=== PATIENT | female | born 1935 | race Caucasian/White ===

== ENCOUNTER 2020-01-02 14:56 | Inpatient (IN) | payer MEDICARE, SELFPAY ==
--- NOTE | 2020-01-02 15:16 | ED_ITS ---
HPI - Fall General Chief Complaint: Fall Stated Complaint: FALL Time Seen by Provider: 01/02/20 15:16 Source: patient Mode of arrival: EMS Limitations: no limitations History of Present Illness HPI Narrative: Patient tripped on her slipper, no LOC. patient hurt her left hip complaint: fall Onset (ago): minute(s) Fall from: standing Fall witnessed: no Place fall occurred: home Loss of consciousness: none Prolonged down time: no Context: tripped/slipped Location of injury: head and neck Location of injury - extremities: left: lower leg Severity: severe Related Data Home Medications Medication Instructions Recorded Confirmed Dilantin 01/02/20 Allergies Allergy/AdvReac Type Severity Reaction Status Date / Time No Known Allergies Allergy Unverified 11/26/19 15:13 [No Known Allergies*] Review of Systems Constitutional: Constitutional: Reports no additional constitutional complaints Eyes: Eyes: Reports no additional eye complaints ENT: Reports dizziness Comments: ocasional dizziness Cardiovascular: Cardiovascular: Reports no additional cardiovascular complaints Respiratory: Respiratory: Reports as per HPI Gastrointestinal: Gastrointestinal: Reports no additional gastrointestinal complaints Genitourinary: Genitourinary: Reports no additional female genitourinary complaints Musculoskeletal: Musculoskeletal: Reports no additional musculoskeletal complaints Integumentary/Breasts: Skin/Breast: Denies rash Neurologic: Reports system reviewed and no additional complaints, except as documented, Reports dizziness and Denies Sensory deficit (Neuro) Psychiatric: Psychiatric: Denies anxiety PMFSH Past Medical History Medical History (Updated 01/02/20 @ 19:43 by Tomasa Castañeda NP) Arthritis Seizure disorder Surgical History (Updated 01/02/20 @ 15:41 by Odalys Pace) History of neck surgery Family History Family History (Updated 01/02/20 @ 19:30 by Tomasa Castañeda NP) Sister Leukemia Social History Social History (Updated 01/02/20 @ 19:34 by Tomasa Castañeda NP) Alcohol intake: current Alcohol intake frequency: holidays/special occasions only Smoking Status: Current every day smoker Use of substances other than those prescribed or required for medical reasons: No Advance Directives: No Advance Directives Information Provided: Yes Physical Exam Vital Signs: Vital Signs: Vital Signs Temp Pulse Resp BP Pulse Ox 01/02/20 18:21 99 18 109/65 96 01/02/20 15:37 97.9 F 100 16 154/83 H 96 Body Mass Index 19.3 Const: Other: frail elderly female Nutritional Appearance: thin Orientation/consciousness: oriented to person and patient oriented x3 Limitations: no limitations HENMT: Head: Yes normal to inspection Ears: external ears normal General nose exam: Normal external nose present Mouth: Normal oral and palatal mucosa present and oropharynx normal Throat: Yes posterior oropharynx normal Eyes: General: appearance normal, both eyes and all related structures Neck: Other: supple Neck: Yes normal visual inspection Chest: Chest palpation & inspection: normal inspection of the chest Resp: Auscultation: clear to auscultation bilaterally Cardio: Jugular venous distension: no JVD Rate: regular rate Rhythm: regular rhythm Heart sounds: S1 normal heart sound present and S2 normal heart sound present GI: Inspection: Yes normal to inspection Palpation (GI): Soft to palpation, nontender and No hepatosplenomegaly present Auscultation: normal bowel sounds : General: Yes no CVA tenderness Back/Spine/Pelvis: Back: no CVA tenderness Skin: General skin exam: no rashes or lesions noted Neuro: General: oriented to person and patient oriented x3 Cranial nerves: Yes CN's II-XII intact bilaterally Motor exam (neuro): 5/5 motor strength present throughout Sensory Exam: No Sensory deficit (Neuro) Extrem: Other: left leg shortened and externally rotated Psych: Appearance: grossly normal Course Course Course Narrative: discussed with Dr. Delgado will admit to hospitalist Consultations Consultation #1: Dr. Delgado Time: 18:17 MDM - Fall MDM Narrative Medical decision making narrative: intertrocanteric fracture will admit Lab Data Result diagrams: 01/02/20 16:20 01/02/20 16:20 Labs: Lab Results 01/02/20 01/02/20 Range/Units 16:20 16:20 WBC 10.8 (4.8-10.8) X10*3/uL RBC 4.32 (4.20-5.50) X10*6/uL Hgb 12.9 (12.0-16.0) g/dl Hct 40.4 (37-47) % MCV 93.5 (80-98) fL MCH 29.9 (27.0-33.0) pg MCHC 31.9 (31.0-35.0) g/dl RDW 13.2 (11.0-16.0) % Plt Count 289 (160-400) X10*3/uL MPV 8.5 L (9.4-12.3) fL Immature Gran % (Auto) 0.3 (0.0-0.4) % Neut % (Auto) 85.1 H (45-73) % Lymph % (Auto) 7.9 L (20-40) % [place] % (Auto) 6.2 (2-11) % Eos % (Auto) 0.1 (0-4) % Baso % (Auto) 0.4 (0-2) % Lymph # (Auto) 0.9 L (1.2-4.9) X10*3/uL [place] # (Auto) 0.7 (0.1-1.2) X10*3/uL Eos # (Auto) 0.0 (0.0-0.4) X10*3/uL Baso # (Auto) 0.0 (0.0-0.2) X10*3/uL Abs Immat Gran (auto) 0.03 (0.00-0.03) X10*3/uL Absolute Neuts (auto) 9.2 H (2.0-8.3) X10*3/uL Absolute Nucleated RBC 0.000 (0.0-0.012) X10*3/uL Nucleated RBC % (auto) 0.0 (0.0-0.2) /100WBC Sodium 135 (135-145) mmol/L Potassium 5.0 (3.3-5.1) mmol/l Chloride 99 (96-108) mmol/L Carbon Dioxide 24 (22-29) mmol/L Anion Gap 17 (12-20) BUN 13 (9-16) mg/dL Creatinine 0.53 (0.5-1.4) mg/dL Estim Creat Clear Calc 55.9 Estimated GFR > 60 Random Glucose 132 H (60-115) mg/dL Calcium 8.2 L (8.4-10.2) mg/dL Imaging Data CT scan - head: Radiologist's impression: no traumatic bleed CT neck: Radiologist's impression: no fracture Discharge Plan Discharge Clinical Impression: Closed intertrochanteric fracture Qualifiers: Encounter type: initial encounter Fracture alignment: displaced Laterality: left Qualified Code(s): S72.142A - Displaced intertrochanteric fracture of left femur, initial encounter for closed fracture Patient Disposition: Admitted As Inpatient
--- NOTE | 2020-01-02 15:21 | XR_ITS ---
EXAMINATION: XR HIP, LEFT CLINICAL INFORMATION: Broken hip COMPARISON: None TECHNIQUE: Frontal view of the pelvis Two views of the left hip. FINDINGS: The SI joints, right hip and symphysis appear intact. Bowel gas obscures some of the pelvis. No proximal right femoral fracture demonstrated There is acute varus deformity secondary to a displaced proximal left femoral fracture. The fracture extends through the trochanteric region with comminution of the lesser trochanter. The femoral head appears intact. The femoral acetabular articulation appears maintained. Arterial calcifications are present. XR/XR hip LT w PEL1V IMPRESSION: Displaced proximal left femoral fracture primarily intratrochanteric with comminution of the lesser trochanter.
--- NOTE | 2020-01-02 15:23 | ECG_ITS ---
Test Reason : lightheaded Blood Pressure : / mmHG Vent. Rate : 098 BPM Atrial Rate : 098 BPM P-R Int : 132 ms QRS Dur : 110 ms QT Int : 384 ms P-R-T Axes : 080 049 107 degrees QTc Int : 490 ms Normal sinus rhythm Septal infarct (cited on or before 19-JUN-2017) Intra-ventricular conduction delay Nonspecific T wave abnormality Lateral leads Abnormal ECG When compared with ECG of 19-JUN-2017 13:19, T wave inversion less evident in Lateral leads Referred By: Dandre Smith Electronically Signed By:AYDEN BARNEY MD
--- NOTE | 2020-01-02 15:23 | CT_ITS ---
EXAMINATION: CT HEAD WITHOUT CONTRAST, CT CERVICAL SPINE WITHOUT CONTRAST CLINICAL INFORMATION: Head and neck trauma COMPARISON: The report of CT 06/19/17 indicates scattered chronic small vessel ischemic changes TECHNIQUE: Multidetector CT examination of the head is performed without contrast. Multidetector CT of the cervical spine without contrast. Multiplanar postprocessing This CT examination was performed using dose optimization techniques as appropriate, variously including the following: *Automated exposure control *Adjustment of mA and/or kV according to patient size (this includes techniques or standardized protocols for targeted exams where dose is matched to indication/reason for exam; i.e. extremities or head) *Use of iterative reconstruction technique DLP: 1037 mGy-cm FINDINGS: Head CT: There is no evidence of a recent intracranial hemorrhage or extra-axial collection. The midline structures are nondisplaced. The ventricles, cisterns, and sulci are within normal limits. There is no evidence of an intra-axial mass. There are no suspicious focal areas of abnormal brain attenuation. The andrews-white interface is within normal limits. There is no evidence of acute territorial infarct. There is nonspecific white matter low attenuation which could be related to microangiopathy. The paranasal sinuses and mastoids are within normal limits. No fracture or fluid level demonstrated. There is metallic artifact. Cervical CT: There has been discectomy and interbody fusion with instrumentation between what is considered C5 and C6. 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 No evidence of traumatic disruption of the craniocervical junction. The appearance of the C2/C3 segment is consistent with a developmental anomaly. There is no acute fracture or subluxation demonstrated. There is narrowing and pleural fluid at changes involving the posterior elements on the left at C6/C7. There is mild scoliosis convex to the left in the upper thoracic region. Metallic artifact. Atherosclerotic calcifications. No largest soft tissue cervical hematoma. Emphysema within the visualized apex of the chest. Tiny juxtapleural nonspecific density anterior left lung apex could be postinflammatory. There is some motion artifact CT/CT cervical spine wo con IMPRESSION: 1. There is no evidence of a recent intracranial hemorrhage. 2. No acute infarct. 3. 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 Emphysema
[2020-01-02 15:37] VITALS: BP 154/83; PULSE 100; RESP 16; TEMP 36.6; O2SAT 96; BMI 19.3
--- NOTE | 2020-01-02 15:56 | PC.NURSE ---
[facility] care proxy daughter
[2020-01-02 16:24] LABS: MANUAL DIFF FLAG NO
[2020-01-02 16:25] LABS: Basophils Percent Auto 0.4 % (0-2); Eosinophils Percent Auto 0.1 % (0-4); Hematocrit 40.4 % (37-47); Hemoglobin 12.9 g/dl (12.0-16.0); Imm Gran Abs Auto 0.03 X10*3/uL (0.00-0.03); Imm Gran Pct Auto 0.3 % (0.0-0.4); Lymphocytes Absolute Auto 0.9 X10*3/uL (1.2-4.9); Lymphocytes Percent Auto 7.9 % (20-40); Mean Corpuscular HGB Conc 31.9 g/dl (31.0-35.0); Mean Corpuscular Hemoglobin 29.9 pg (27.0-33.0); Mean Corpuscular Volume 93.5 fL (80-98); Mean Platelet Volume 8.5 fL (9.4-12.3); Monocytes Absolute Auto 0.7 X10*3/uL (0.1-1.2); Monocytes Percent Auto 6.2 % (2-11); Neutrophils Absolute Auto 9.2 X10*3/uL (2.0-8.3); Neutrophils Percent Auto 85.1 % (45-73); Platelet Count 289 X10*3/uL (160-400); Red Blood Count 4.32 X10*6/uL (4.20-5.50); Red Cell Distribution Width 13.2 % (11.0-16.0); White Blood Count 10.8 X10*3/uL (4.8-10.8)
[2020-01-02] MEDS: Morphine Sulfate 4 MG/ML CARTRIDGE IVPUSH (16:42)
[2020-01-02 17:08] LABS: Anion Gap 17 (12-20); Blood Urea Nitrogen 13 mg/dL (9-16); Calcium 8.2 mg/dL (8.4-10.2); Carbon Dioxide 24 mmol/L (22-29); Chloride 99 mmol/L (96-108); Creatinine Clr Calc Pharmacy 55.9; Estimated Glomerular Filt Rate > 60; Glucose Random 132 mg/dL (60-115); Sodium 135 mmol/L (135-145)
[2020-01-02 18:21] VITALS: BP 109/65; PULSE 99; RESP 18; O2SAT 96
--- NOTE | 2020-01-02 18:49 | PC.NURSE ---
first attempt at [place] unsuccessful, hospitalist now at bedside
--- NOTE | 2020-01-02 19:25 | P.HPIM_ITS ---
History of Present Illness Date of Service: 01/02/20 <Tomasa Castañeda NP - Last Filed: 01/02/20 19:47> Chief Complaint: Fall <Tomasa Castañeda NP - Last Filed: 01/02/20 19:47> 84-year-old woman presented to the ER after fall. She reported that around 23:00 last night she got up from her liver room and suddenly she remembers being on the ground. Unfortunately she does not remember if she lost consciousness or tripped over her feet as she reports previous history of syncope in the past. She did report that she got up quickly from her seated position. She denied chest pain, shortness of breath, nausea, vomiting, diarrhea. She reports that she was on the ground all night and her niece who visit her found her in the morning. Unfortunately patient was found to have a displaced proximal left femoral fracture primarily intertrochanteric. Otherwise brain CT and cervical spine CT were negative for acute abnormality. Labs within acceptable limits. Vital signs stable. Patient be admitted for further management treatment of acute femur fracture. <GENNARO Paul Last Filed: 01/02/20 19:47> Review of Systems Review of Systems: Denies any recent fever chills or decrease in appetite respiratory denies any shortness of breath coverage production cardiovascular is adjustment of any PND or edema gastrointestinal denies any dysphagia abdominal pain nausea vomiting or diarrhea genitourinary denies any dysuria frequency or hematuria musculoskeletal denies any joint pain or swelling neuropsych See above all other systems reviewed are negative <GENNARO Paul Last Filed: 01/02/20 19:47> ENT: Reports dizziness <GENNARO Paul Last Filed: 01/02/20 19:47> Neurologic: Reports system reviewed and no additional complaints, except as documented, Reports dizziness and Denies Sensory deficit (Neuro) <Tomasa ferreira NP - Last Filed: 01/02/20 19:47> FORMERLY [facility], [facility]–1983 Medical History: Medical History Arthritis Seizure disorder Smoker <Tomasa Castañeda NP - Last Filed: 01/02/20 19:47> Functional capacity: independent ambulation <GENNARO Paul Last Filed: 01/02/20 19:47> Family History: Family History Sister Leukemia <Tomasa Castañeda NP - Last Filed: 01/02/20 19:47> Surgical History: Surgical History History of neck surgery <Tomasa Castañeda NP - Last Filed: 01/02/20 19:47> Social History: Social History Household Members: None Housing: House Alcohol intake: current Alcohol intake frequency: holidays/special occasions only Smoking Status: Current every day smoker Tobacco Type: Cigarette Second Hand Smoke Exposure: No service: No Current occupational status: retired <Tomasa Castañeda NP - Last Filed: 01/02/20 19:47> Meds Allergies/Adverse reactions: Allergies Allergy/AdvReac Type Severity Reaction Status Date / Time No Known Allergies Allergy Verified 01/03/20 09:18 [No Known Allergies*] <Tomasa Castañeda NP - Last Filed: 01/02/20 19:47> Home medications: Home Medications Medication Instructions Recorded Confirmed Type phenytoin sodium extended 300 mg PO DAILY 01/02/20 01/03/20 History [Dilantin Extended] prednisone 5 mg PO DAILY 01/03/20 01/03/20 History <Tomasa Castañeda NP - Last Filed: 01/02/20 19:47> Physical Exam Vital Signs and Narrative: Vital Signs: Last Vital Signs Temp 97.9 F 01/02/20 15:37 Pulse 99 01/02/20 18:21 Resp 18 01/02/20 18:21 BP 109/65 01/02/20 18:21 Pulse Ox 96 01/02/20 18:21 Body Mass Index 19.3 <Tomasa Castañeda NP - Last Filed: 01/02/20 19:47> Appearing in no acute distress head is normocephalic atraumatic eyes pupils are PERRLA sclera is anicteric mouth throat mucous membranes are intact and moist neck is supple no lymphadenopathy, no JVD noted lung sounds are clear to auscultation heart regular rate rhythm, clear S1, S2 positive bowel sounds, abdomen is soft, nontender+ musculoskeletal left leg shortened and externally rotated neuro patient is alert x3, no focal deficits <GENNARO Paul Last Filed: 01/02/20 19:47> Neuro: Sensory Exam: No Sensory deficit (Neuro) <Tomasa Castañeda NP - Last Filed: 01/02/20 19:47> Results Labs Labs: Laboratory Tests 01/02/20 01/02/20 16:20 16:20 WBC 10.8 RBC 4.32 Hgb 12.9 Hct 40.4 MCV 93.5 MCH 29.9 MCHC 31.9 RDW 13.2 Plt Count 289 MPV 8.5 L Immature Gran % (Auto) 0.3 Neut % (Auto) 85.1 H Lymph % (Auto) 7.9 L [place] % (Auto) 6.2 Eos % (Auto) 0.1 Baso % (Auto) 0.4 Lymph # (Auto) 0.9 L [place] # (Auto) 0.7 Eos # (Auto) 0.0 Baso # (Auto) 0.0 Abs Immat Gran (auto) 0.03 Absolute Neuts (auto) 9.2 H Absolute Nucleated RBC 0.000 Nucleated RBC % (auto) 0.0 Sodium 135 Potassium 5.0 Chloride 99 Carbon Dioxide 24 Anion Gap 17 BUN 13 Creatinine 0.53 Estim Creat Clear Calc 55.9 Estimated GFR > 60 Random Glucose 132 H Calcium 8.2 L <Tomasa Castañeda NP - Last Filed: 01/02/20 19:47> Assessment and Plan (1) Closed intertrochanteric fracture: Qualifiers: Encounter type: initial encounter Fracture alignment: displaced Laterality: left Qualified Code(s): S72.142A - Displaced intertrochanteric fracture of left femur, initial encounter for closed fracture <Tomasa Castañeda NP - Last Filed: 01/02/20 19:47> Status: Acute <Tomasa Castañeda NP - Last Filed: 01/02/20 19:47> (2) Arthritis: Status: Acute <Tomasa Castañeda NP - Last Filed: 01/02/20 19:47> (3) Seizure disorder: Status: Acute <Tomasa Castañeda NP - Last Filed: 01/02/20 19:47> (4) Syncope: Status: Acute <Tomasa Castañeda NP - Last Filed: 01/02/20 19:47> 84-year-old woman admitted after a fall and found to have intertrochanteric femoral fracture. Unfortunately patient does not know if she lost consciousness at any point or if she tripped over her feet. Hip fracture. Orthopedic consultation, pain management, bedrest, NPO after midnight. Physical therapy to follow-up with patient, she will likely need rehabilitation upon discharge. Syncope. Unknown if patient had a syncopal episode versus seizure versus mechanical fall. Will place patient on the to monitor. History of seizure disorder. Will place patient on seizure precautions. Denies recent seizure activity. Smoker. Nicotine replacement, discussed smoking cessation. DVT prophylaxis with mechanical compression boots, preoperative. Case discussed with Dr. Villeda DNR <Tomasa Castañeda NP - Last Filed: 01/02/20 19:47>
--- NOTE | 2020-01-02 19:44 | PC.NURSE ---
PATIENT TAKES A SEIZURE MEDICINE BUT DOES NOT KNOW THE NAME. LAST TOOK YESTERDAY
[2020-01-02 20:00] VITALS: BP 98/72; PULSE 99; RESP 22; TEMP 36.6; O2SAT 94
[2020-01-02 20:16] LABS: Glucose Urine UA NEG (NEG); Leukocyte Esterase Urine NEG (NEG); Nitrite Urine NEG (NEG); PH 6.5 (5.0-8.0); Specific Gravity - Urine 1.025 (1.005-1.025); Urine Blood 1+ (NEG); Urine Ketones NEG (NEG); Urine Protein TRACE MG/DL (NEG-TRACE)
[2020-01-02 20:17] LABS: Appearance Urine CLEAR; Color Urine YELLOW
--- NOTE | 2020-01-02 20:41 | PC.NURSE ---
ATTEMPTED TO GIVE REPORT. NURSE WILL CALL BACK.
--- NOTE | 2020-01-02 21:01 | PC.NURSE ---
2ND ATTEMPT TO CALL AND GIVE REPORT.
[2020-01-02 21:07] LABS: UACC CULT NO; WBC Urine 0 /HPF (0-4)
--- NOTE | 2020-01-02 21:09 | PC.NURSE ---
NURSE TO NURSE GIVEN TO ANITA GONZALEZ.
[2020-01-02 21:11] LABS: SARS COV2 PCR INHOUSE NEGATIVE (Negative)
[2020-01-02 21:41] VITALS: BP 162/80; PULSE 107; RESP 18; TEMP 36.7; O2SAT 97
[2020-01-02] MEDS: 0.9 % Sodium Chloride 1,000 ML 75 ML IVCONT (22:59)
[2020-01-02] MEDS: 0.9 % Sodium Chloride Flush 3 ML SYRINGE IVFLUSH (23:00)
[2020-01-03] VITALS (11 sets, daily range): BP systolic 94–157; BP diastolic 51–90; PULSE 90–110; RESP 16–19; TEMP 35.9–37.4; O2SAT 94–98
[2020-01-03] MEDS: Morphine Sulfate 2 MG/ML CARTRIDGE IVPUSH (03:39)
--- NOTE | 2020-01-03 03:51 | PC.NURSE ---
PT TO [facility] [place] AT 2230 IN NO ACUTE DISTRESS. PT A&O X3. LEFT LEG IS SHORTER THAN RIGHT AND IS EXTERNALLY ROTATED. PT DENIES PAIN AT REST BUT HAS SEVERE PAIN WITH MOVEMENT/REPOSITIONING. CMS TO LEFT FOOT IS GOOD. PEDAL AND POST TIBIAL PULSES ARE PALPABLE. FEET ARE WARM BILAT. NO EDEMA NOTED TO EXTREMITIES. PT RECEIVED MORPHINE 2 MG IV AT 0340 PRIOR TO REPOSITIONING WITH GOOD EFFECT. LOPEZ CATH IN PLACE. SKIN INTEGRITY GOOD. VITAL SIGNS STABLE. MONITOR SHOWS ST, HR 100-108, NO ECTOPY NOTED. PT IS NPO. IV OF NS INFUSING AT 75 ML/HR. PT'S NIECE, ALEIDA, WHO IS ALSO THE HCP, CALLED TO CHECK ON THE PT AND EXPRESSED INTEREST IN SPEAKING TO THE SURGEON BEFORE PT IS TAKEN TO THE OR, IF THAT IS THE PLAN AFTER CONSULTATION. SHE IS CONCERNED ABOUT THE PT RECEIVING ANESTHESIA AND BEING INTUBATED SINCE THIS PT IS A SMOKER. WILL PASS THIS INFO ON TO NEXT RN. PT DOES HAVE A CONGESTED SOUNDING COUGH BUT NOT EXPECTORATING ANY SPUTUM. LUNGS ARE DIM WITH RHONCHI. O2 SAT IS 96-97% ON RA.
[2020-01-03 06:50] LABS: MANUAL DIFF FLAG NO
[2020-01-03 07:12] LABS: Basophils Percent Auto 0.4 % (0-2); Eosinophils Percent Auto 0.3 % (0-4); Hemoglobin 12.5 g/dl (12.0-16.0); Imm Gran Abs Auto 0.03 X10*3/uL (0.00-0.03); Imm Gran Pct Auto 0.4 % (0.0-0.4); Mean Corpuscular HGB Conc 32.1 g/dl (31.0-35.0); Mean Corpuscular Hemoglobin 30.6 pg (27.0-33.0); Mean Corpuscular Volume 95.6 fL (80-98); Mean Platelet Volume 8.8 fL (9.4-12.3); Monocytes Absolute Auto 0.5 X10*3/uL (0.1-1.2); Monocytes Percent Auto 5.8 % (2-11); Neutrophils Absolute Auto 6.2 X10*3/uL (2.0-8.3); Neutrophils Percent Auto 80.1 % (45-73); Platelet Count 260 X10*3/uL (160-400); Red Blood Count 4.08 X10*6/uL (4.20-5.50); Red Cell Distribution Width 13.2 % (11.0-16.0); White Blood Count 7.7 X10*3/uL (4.8-10.8)
--- NOTE | 2020-01-03 07:32 | P.HPOP_ITS ---
History of Present Illness History of Present Illness Chief complaint: Fall Hip Fracture Narrative: Orquidea Thurman is a 84 year old female who presents with a left hip fracture. She sustained a mechanical fall and presented to the ED with severe pain, internal rotation and inability to ambulate. She walks at baseline. She denies LOC or other injuries. SHe is a smoker. She is currently complaining of left hip pain only. XRAYS SHOW INTERTROCHANTERIC LEFT HIP FRACTURE Review of Systems Review of Systems: Yes all other systems are reviewed and are negative Eyes: Eyes: Reports no additional eye complaints ENT: Reports dizziness Cardiovascular: Cardiovascular: Reports no additional cardiovascular complaints Respiratory: Respiratory: Reports no additional respiratory complaints Gastrointestinal: Gastrointestinal: Reports no additional gastrointestinal complaints Musculoskeletal: Musculoskeletal: Reports as per HPI Integumentary/Breasts: Skin/Breast: Reports system reviewed and no additional complaints, except as docu Neurologic: Reports system reviewed and no additional complaints, except as documented, Reports dizziness and Denies Sensory deficit (Neuro) Psychiatric: Psychiatric: Reports no additional psychiatric complaints PMF Past Medical History Medical History Arthritis Seizure disorder Smoker Functional capacity: independent ambulation Family History Family History Sister Leukemia Surgical History Surgical History History of neck surgery Social History Social History Household Members: None Housing: House Are you a primary day care center director to a significant other at home: No Do you presently have visiting nurse or other home services: No Alcohol intake: current Alcohol intake frequency: holidays/special occasions only Smoking Status: Current every day smoker Tobacco Type: Cigarette Smoked in Last 30 Days: Yes Patient Interested in Nicotine Replacement: Yes Patient Given Instructions on How to Stop Smoking: Yes Date Education Initiated: 01/02/20 Second Hand Smoke Exposure: No Use of substances other than those prescribed or required for medical reasons: No Have you been hit, kicked, punched, or otherwise hurt by someone within the past year? If so, by whom?: No Do you feel safe in your current relationship?: No Current Relationship Is there a partner from a previous relationship who is making you feel unsafe now?: No Are you made to feel afraid or neglected: No Spiritual Healthcare Practices: NONE [place] Healthcare Practices: NONE Cultural Healthcare Practices: NONE Advance Directives: No Advance Directives Information Provided: Yes Do you have thoughts of harming others: None Do you have a plan to hurt others: No Plan Recently lost weight without trying: Yes Meds Allergies Allergy/AdvReac Type Severity Reaction Status Date / Time No Known Allergies Allergy Unverified 11/26/19 15:13 [No Known Allergies*] Home Medications Medication Instructions Recorded Confirmed Type Dilantin 01/02/20 History Physical Exam Vital Signs: Vital Signs: Vital Signs Temp Pulse Resp BP Pulse Ox 01/03/20 03:39 18 01/03/20 03:35 99.0 F 110 H 18 119/90 H 95 01/03/20 00:11 98.1 F 101 H 18 140/76 H 95 01/02/20 21:41 98.0 F 107 H 18 162/80 H 97 01/02/20 20:00 98 F 99 22 H 98/72 94 01/02/20 18:21 99 18 109/65 96 01/02/20 15:37 97.9 F 100 16 154/83 H 96 Body Mass Index 19.3 Const: General: cooperative, no acute distress and alert HENMT: Head: Yes normal to inspection, Yes normocephalic and Yes atraumatic Mouth: moist mucous membranes Eyes: General: appearance normal, both eyes and all related structures EOM: EOMs intact bilaterally Resp: Other: no wheezing but loose phlematic cough ( chronic) Effort & Inspection: normal respiratory effort Cardio: Other: Radial pulse palpable with no rythmic abnormalities Back/Spine/Pelvis: Cervical Spine: normal cervical lordosis Skin: General skin exam: no rashes or lesions noted Neuro: General: no focal motor deficits Sensory Exam: No Sensory deficit (Neuro) Extrem: Other: Left leg internally rotated and pain with log roll. Moving toes comfortably and silt grossly with papable pedal pulse Psych: Appearance: grossly normal and well kempt Mental Status: mental status grossly normal Speech and movement: Normal speech and movement present Affect: normal affect Attitude: cooperative Results Labs Result Diagrams: 01/03/20 06:24 01/02/20 16:20 Labs: Abnormal lab results 01/02/20 01/02/20 01/02/20 Range/Units 16:20 16:20 20:01 RBC (4.20-5.50) X10*6/uL MPV 8.5 L (9.4-12.3) fL Neut % (Auto) 85.1 H (45-73) % Lymph % (Auto) 7.9 L (20-40) % Lymph # (Auto) 0.9 L (1.2-4.9) X10*3/uL Absolute Neuts (auto) 9.2 H (2.0-8.3) X10*3/uL Random Glucose 132 H (60-115) mg/dL Calcium 8.2 L (8.4-10.2) mg/dL Urine Blood 1+ H (NEG) Urine RBC 10-14 H (0) /HPF 01/03/20 Range/Units 06:24 RBC 4.08 L (4.20-5.50) X10*6/uL MPV 8.8 L (9.4-12.3) fL Neut % (Auto) 80.1 H (45-73) % Lymph % (Auto) 13.0 L (20-40) % Lymph # (Auto) 1.0 L (1.2-4.9) X10*3/uL Absolute Neuts (auto) (2.0-8.3) X10*3/uL Random Glucose (60-115) mg/dL Calcium (8.4-10.2) mg/dL Urine Blood (NEG) Urine RBC (0) /HPF H & H 01/02/20 01/03/20 Range/Units 16:20 06:24 Hgb 12.9 12.5 (12.0-16.0) g/dl Hct 40.4 39.0 (37-47) % All other labs normal. Laboratory Findings Labs: Laboratory Results - last 24 hr 01/02/20 01/02/20 01/02/20 16:20 16:20 19:57 WBC 10.8 RBC 4.32 Hgb 12.9 Hct 40.4 MCV 93.5 MCH 29.9 MCHC 31.9 RDW 13.2 Plt Count 289 MPV 8.5 L Immature Gran % (Auto) 0.3 Neut % (Auto) 85.1 H Lymph % (Auto) 7.9 L [place] % (Auto) 6.2 Eos % (Auto) 0.1 Baso % (Auto) 0.4 Lymph # (Auto) 0.9 L [place] # (Auto) 0.7 Eos # (Auto) 0.0 Baso # (Auto) 0.0 Abs Immat Gran (auto) 0.03 Absolute Neuts (auto) 9.2 H Absolute Nucleated RBC 0.000 Nucleated RBC % (auto) 0.0 Sodium 135 Potassium 5.0 Chloride 99 Carbon Dioxide 24 Anion Gap 17 BUN 13 Creatinine 0.53 Estim Creat Clear Calc 55.9 Estimated GFR > 60 Random Glucose 132 H Calcium 8.2 L Urine Color Urine Appearance Urine pH Ur Specific [place] Urine Protein Urine Glucose (UA) Urine Ketones Urine Blood Urine Nitrite Ur Leukocyte Esterase Urine RBC Urine WBC Ur Squamous Epith Cells Urine Bacteria Coronavirus (PCR) NEGATIVE COVID-19 PCR Cancelled 01/02/20 01/03/20 20:01 06:24 WBC 7.7 RBC 4.08 L Hgb 12.5 Hct 39.0 MCV 95.6 MCH 30.6 MCHC 32.1 RDW 13.2 Plt Count 260 MPV 8.8 L Immature Gran % (Auto) 0.4 Neut % (Auto) 80.1 H Lymph % (Auto) 13.0 L [place] % (Auto) 5.8 Eos % (Auto) 0.3 Baso % (Auto) 0.4 Lymph # (Auto) 1.0 L [place] # (Auto) 0.5 Eos # (Auto) 0.0 Baso # (Auto) 0.0 Abs Immat Gran (auto) 0.03 Absolute Neuts (auto) 6.2 Absolute Nucleated RBC 0.000 Nucleated RBC % (auto) 0.0 Sodium Potassium Chloride Carbon Dioxide Anion Gap BUN Creatinine Estim Creat Clear Calc Estimated GFR Random Glucose Calcium Urine Color YELLOW Urine Appearance CLEAR Urine pH 6.5 Ur Specific [place] 1.025 Urine Protein TRACE Urine Glucose (UA) NEG Urine Ketones NEG Urine Blood 1+ H Urine Nitrite NEG Ur Leukocyte Esterase NEG Urine RBC 10-14 H Urine WBC 0 Ur Squamous Epith Cells NONE Urine Bacteria NONE Coronavirus (PCR) COVID-19 PCR Assessment and Plan (1) Closed intertrochanteric fracture: Qualifiers: Encounter type: initial encounter Fracture alignment: displaced Laterality: left Qualified Code(s): S72.142A - Displaced intertrochanteric fracture of left femur, initial encounter for closed fracture Status: Acute THis is an 84 yo smoker with left intertrochanteric hip fracture. I jose mmend operative fixation. I spoke with her and her niece and explained the risks/benefits/alternatives including but not limited to the risk of infection, need for additional surgery, UTI, PNA, blood clots, pulmonary complications associated with surgery and recovery. The alfredito (HCP) expressed understanding.
[2020-01-03 07:46] LABS: Anion Gap 16 (12-20); Blood Urea Nitrogen 17 mg/dL (9-16); Calcium 7.8 mg/dL (8.4-10.2); Carbon Dioxide 24 mmol/L (22-29); Chloride 101 mmol/L (96-108); Estimated Glomerular Filt Rate > 60; Glucose Random 112 mg/dL (60-115); Potassium 4.4 mmol/l (3.3-5.1); Sodium 137 mmol/L (135-145)
--- NOTE | 2020-01-03 07:53 | FL_ITS ---
EXAMINATION: XR FLUOROSCOPY WITH IMAGES CLINICAL INFORMATION: Fracture left hip COMPARISON: Frontal view left hip 01/02/20 TECHNIQUE: Fluoroscopy performed by Dr. Sohail Delgado. Fluoroscopy time: 0.9 minutes DAP: 0.161 mGycm2 Images: 5 FINDINGS: A series of images obtained in the operating room with the portable image intensifier demonstrates instrumentation with reduction and fixation of the previously demonstrated displaced proximal femoral fracture. Antegrade intramedullary jemma traverses the intertrochanteric region and terminates in the distal diametaphysis transfixed by a single distal orthogonal screw. There is a obliquely oriented large caliber threaded nail traversing the jemma, intertrochanteric region, femoral neck and projecting in the femoral head. Bone detail somewhat limited but the orientation and alignment are markedly improved. Vascular calcifications. FL/FL guidance in OR IMPRESSION: Imaging assistance provided during instrumentation and fixation of a left proximal femoral fracture
[2020-01-03] MEDS: 0.9 % Sodium Chloride Flush 3 ML SYRINGE IVFLUSH ×2 (08:00→14:44)
--- NOTE | 2020-01-03 08:27 | P.CONAN_ITS ---
[facility] Past Medical History Medical History Arthritis Seizure disorder Smoker Functional capacity: independent ambulation Family History Family History Sister Leukemia Surgical History Surgical History History of neck surgery Social History Social History Household Members: None Housing: House Are you a primary spiritual care coordinator to a significant other at home: No Do you presently have visiting nurse or other home services: No Alcohol intake: current Alcohol intake frequency: holidays/special occasions only Smoking Status: Current every day smoker Tobacco Type: Cigarette Smoked in Last 30 Days: Yes Patient Interested in Nicotine Replacement: Yes Patient Given Instructions on How to Stop Smoking: Yes Date Education Initiated: 01/02/20 Second Hand Smoke Exposure: No Use of substances other than those prescribed or required for medical reasons: No Have you been hit, kicked, punched, or otherwise hurt by someone within the past year? If so, by whom?: No Do you feel safe in your current relationship?: No Current Relationship Is there a partner from a previous relationship who is making you feel unsafe now?: No Are you made to feel afraid or neglected: No Spiritual Healthcare Practices: NONE [facility] Practices: NONE Cultural Healthcare Practices: NONE Advance Directives: No Advance Directives Information Provided: Yes Do you have thoughts of harming others: None Do you have a plan to hurt others: No Plan Recently lost weight without trying: Yes Meds Allergies Allergy/AdvReac Type Severity Reaction Status Date / Time No Known Allergies Allergy Verified 01/03/20 09:18 [No Known Allergies*] Home Medications Medication Instructions Recorded Confirmed Type Dilantin 01/02/20 History Exam Exam Date and Time: January 03, 2020 0827 Height,Weight and Vital Signs: Height 5 ft Weight 44.906 kg Last Vital Signs Temp 98.2 F 01/03/20 07:46 Pulse 95 01/03/20 07:46 Resp 18 01/03/20 07:46 BP 111/73 01/03/20 07:46 Pulse Ox 94 01/03/20 07:46 Pertinent Lab Results Pertinent Lab Results: Laboratory Tests 01/02/20 01/02/20 01/02/20 16:20 16:20 19:57 WBC 10.8 RBC 4.32 Hgb 12.9 Hct 40.4 MCV 93.5 MCH 29.9 MCHC 31.9 RDW 13.2 Plt Count 289 MPV 8.5 L Immature Gran % (Auto) 0.3 Neut % (Auto) 85.1 H Lymph % (Auto) 7.9 L [place] % (Auto) 6.2 Eos % (Auto) 0.1 Baso % (Auto) 0.4 Lymph # (Auto) 0.9 L [place] # (Auto) 0.7 Eos # (Auto) 0.0 Baso # (Auto) 0.0 Abs Immat Gran (auto) 0.03 Absolute Neuts (auto) 9.2 H Absolute Nucleated RBC 0.000 Nucleated RBC % (auto) 0.0 Sodium 135 Potassium 5.0 Chloride 99 Carbon Dioxide 24 Anion Gap 17 BUN 13 Creatinine 0.53 Estim Creat Clear Calc 55.9 Estimated GFR > 60 Random Glucose 132 H Calcium 8.2 L Urine Color Urine Appearance Urine pH Ur Specific [place] Urine Protein Urine Glucose (UA) Urine Ketones Urine Blood Urine Nitrite Ur Leukocyte Esterase Urine RBC Urine WBC Ur Squamous Epith Cells Urine Bacteria Coronavirus (PCR) NEGATIVE COVID-19 PCR Cancelled 01/02/20 01/03/20 01/03/20 20:01 06:24 06:24 WBC 7.7 RBC 4.08 L Hgb 12.5 Hct 39.0 MCV 95.6 MCH 30.6 MCHC 32.1 RDW 13.2 Plt Count 260 MPV 8.8 L Immature Gran % (Auto) 0.4 Neut % (Auto) 80.1 H Lymph % (Auto) 13.0 L [place] % (Auto) 5.8 Eos % (Auto) 0.3 Baso % (Auto) 0.4 Lymph # (Auto) 1.0 L [place] # (Auto) 0.5 Eos # (Auto) 0.0 Baso # (Auto) 0.0 Abs Immat Gran (auto) 0.03 Absolute Neuts (auto) 6.2 Absolute Nucleated RBC 0.000 Nucleated RBC % (auto) 0.0 Sodium 137 Potassium 4.4 Chloride 101 Carbon Dioxide 24 Anion Gap 16 BUN 17 H Creatinine 0.57 Estim Creat Clear Calc 52.0 Estimated GFR > 60 Random Glucose 112 Calcium 7.8 L Urine Color YELLOW Urine Appearance CLEAR Urine pH 6.5 Ur Specific [place] 1.025 Urine Protein TRACE Urine Glucose (UA) NEG Urine Ketones NEG Urine Blood 1+ H Urine Nitrite NEG Ur Leukocyte Esterase NEG Urine RBC 10-14 H Urine WBC 0 Ur Squamous Epith Cells NONE Urine Bacteria NONE Coronavirus (PCR) COVID-19 PCR Airway Mallampati Class: II TM Dist: >3cm Loose/Missing/Broken Teeth: No Heart: RRR Lungs: BS BL decreased, min. wheezing
--- NOTE | 2020-01-03 08:40 | MHC.SHP ---
Pre-Procedural Eval Section A The patient is an INPATIENT: Yes Changes since office visit: Yes Patient answered all questions; No Cold of Flu in the past 2 weeks, No New Medical Problems and No Changes in Medication The History & Physical has been completed within 30 days and I have reviewed it.: Yes Section B Chief Complaint: Fall Hip Fracture Allergies: Allergies Allergy/AdvReac Type Severity Reaction Status Date / Time No Known Allergies Allergy Unverified 11/26/19 15:13 [No Known Allergies*] Plan Patient has been examined and remains a candidate for the planned procedure
--- NOTE | 2020-01-03 09:58 | PM.OP ---
Brief Operative Note Date of procedure: 01/03/20 Pre-op diagnosis: left hip IT fx Post-op diagnosis: same Procedure: CMN left hip Implants: seth [id number] 125 deg imn with 95 mm hip screw and 35 mm distal interlock Surgeon: Sohail Delgado MD Anesthesia: GLMA and local Estimated blood loss (mL): 100 IV fluids (mL): 500 Pathology: none sent Condition: stable Disposition: PACU
[2020-01-03] MEDS: ceFAZolin Sodium/Dextrose,Iso 2 GM/50 ML PIGGYBACK IV ×2 (10:48→14:43)
--- NOTE | 2020-01-03 12:33 | OP_ITS ---
SURGEON: Sohail Delgado MD INDICATIONS: This is an 84-year-old woman, who sustained a mechanical fall, consented to undergo left hip IM nail fixation. PREOPERATIVE DIAGNOSIS: Left intertrochanteric hip fracture. POSTOPERATIVE DIAGNOSIS: Left intertrochanteric hip fracture. PROCEDURE PERFORMED: Cephalomedullary nail, left hip. ESTIMATED BLOOD LOSS: 100 mL. COMPLICATIONS: None known. ANESTHESIA: LMA and local. ASSISTANTS: None. SPECIMENS: FLUIDS: 500. IMPLANTS: [place] cephalomedullary nail 11 x 300, 125-degree with 95-degree hip screw and 30 mm distal interlock. PROCEDURE IN DETAIL: The patient was brought to the operating room, placed supine on the operative table, and prepped and draped in standard sterile fashion. Time-out was called to identify proper site, proper procedure, and proper surgeon. IV antibiotics per weight were administered. I began by reducing the fracture using a combination of traction and rotation, and biplanar fluoroscopy was used to confirm reduction. Once this was done, I made a stab incision proximal to the greater trochanter and at the tip of the greater trochanter and placed my guidewire. I then enlarged my incision and drilled my opening reamer. I then placed my ball-tip guidewire down to the center of the femur and measured a 300 mm nail. I reamed to a 13 and placed 11 x 300 mm nail. Hip screw was placed using a tip apex distance of less than 2.5. I then drilled to measure 95 and drilled. While inserting the screw, I think there was some rotation of the neck resulting in slightly anterior placement of the screw on the lateral, but since I had already drilled, I felt that this was acceptable. I was happy with the AP, and I placed my set screw. I then turned my attention distally and placed distal interlock screw using perfect venetie technique. Once this was done, I was happy with the position of the hardware and the fracture reduction. All traction was let down, and copious irrigation was performed. Layered closure was performed with renny on the skin. I injected approximately 30 mL of 0.5% Marcaine plain in all 3 of the small incisions. The patient was then awakened from anesthesia and brought to the recovery room in stable condition. There were no known complications. MD LAMBERT Dior/HARVEY / [phone]
--- NOTE | 2020-01-03 13:34 | HO.PM.IMPN ---
Subjective Subjective Date of Service: 01/03/20 Interval History: patient seen and examined at bedside patient reported pain at surgical side Cardiovascular Cardiovascular: Denies dyspnea Respiratory Respiratory: Denies dyspnea Gastrointestinal Gastrointestinal: Denies vomiting Neurologic Neurologic: Denies Sensory deficit (Neuro) Physical Exam Vital Signs: Vital Signs: Vital Signs Temp Pulse Resp BP Pulse Ox 01/03/20 10:36 97.5 F 91 16 154/86 H 94 01/03/20 10:22 97.5 F 91 16 150/75 H 95 01/03/20 10:17 97.5 F 90 16 154/86 H 95 01/03/20 10:12 97.5 F 90 16 157/84 H 97 01/03/20 07:46 98.2 F 95 18 111/73 94 01/03/20 03:39 18 01/03/20 03:35 99.0 F 110 H 18 119/90 H 95 01/03/20 00:11 98.1 F 101 H 18 140/76 H 95 01/02/20 21:41 98.0 F 107 H 18 162/80 H 97 01/02/20 20:00 98 F 99 22 H 98/72 94 01/02/20 18:21 99 18 109/65 96 01/02/20 15:37 97.9 F 100 16 154/83 H 96 Body Mass Index 19.3 Appearing in no acute distress head is normocephalic atraumatic eyes pupils are PERRLA sclera is anicteric mouth throat mucous membranes are intact and moist neck is supple no lymphadenopathy, no JVD noted lung sounds are clear to auscultation heart regular rate rhythm, clear S1, S2 positive bowel sounds, abdomen is soft, nontender+ musculoskeletal left leg shortened and externally rotated neuro patient is alert x3, no focal deficits Neuro: Sensory Exam: No Sensory deficit (Neuro) Objective Data Current Medications Generic Name Dose Route Start Last Admin Trade Name Freq PRN Reason Stop Dose Admin Acetaminophen 650 mg 01/02/20 21:40 Acetaminophen 325 Mg Tablet PO Q6H PRN Pain, Mild (Pain Scale 1-3) Fentanyl 25 mcg 01/03/20 09:33 Fentanyl Citrate/Pf 100 Mcg/2 Ml Vial IVPUSH Q5M PRN Pain, Moderate (Pain Scale 4-6 Sodium Chloride 1,000 mls @ 75 mls/hr 01/02/20 21:40 01/03/20 13:24 Ns IVCONT Not Given .[id number] AVTAR Cefazolin Sodium/Dextrose 2 gm in 50 mls @ 100 mls/hr 01/03/20 15:00 Ancef IV 01/03/20 15:29 POSTOP ONE Morphine Sulfate 2 mg 01/02/20 21:40 01/03/20 03:39 Morphine Sulfate 2 Mg/Ml Cartridge IVPUSH 2 mg Q4H PRN Administration Pain and Fever Nicotine 7 mg 01/03/20 09:00 Nicotine 7 Mg Patch.[id number] TRANSDERMA DAILY AVTAR Ondansetron HCl 4 mg 01/02/20 21:40 Ondansetron Hcl 4 Mg/2 Ml Vial IVPUSH Q8H PRN Nausea and Vomiting Ondansetron HCl 4 mg 01/03/20 09:33 Ondansetron Hcl 4 Mg/2 Ml Vial IVPUSH ONCE PRN Nausea and Vomiting Pharmacy Consult 1 each 01/02/20 18:33 Consult Rx Perform Med Rec MISCELLANE ONCE PRN Consult order Sodium Chloride 3 ml 01/03/20 00:00 01/03/20 08:00 0.9 % Sodium Chloride Flush 3 Ml Syringe IVFLUSH 3 ml QSHIFT AVTAR Administration Labs CBC & Chem 7: 01/04/20 08:39 01/04/20 08:39 Assessment and Plan (1) Closed intertrochanteric fracture: Status: Acute (2) Arthritis: Status: Acute (3) Seizure disorder: Status: Acute (4) Syncope: Status: Acute Assessment and Plan: 84-year-old woman admitted after a fall and found to have intertrochanteric femoral fracture. Hip fracture status post fall status post surgery today orthopedic following pain management will get PT evaluation tomorrow Syncope. Unknown if patient had a syncopal episode versus seizure versus mechanical fall. appears more mechanical no arrhythmia on telemetry History of seizure disorder. continue Dilantin Denies recent seizure activity. Smoker. Nicotine replacement, discussed smoking cessation. DVT prophylaxis with mechanical compression boots , will change as per surgery recommendation DNR
[2020-01-03] MEDS: 0.9 % Sodium Chloride 1,000 ML 75 ML IVCONT (14:43)
--- NOTE | 2020-01-03 16:42 | MHC.CM.PN ---
PT REPORTS SHE LIVES ALONE AND IS INDEPENDENT WITH CARE. PT HAS A WALKER BUT DOES NOT USE IT AT BASELINE ALTHOUGH SHE REPORTS SHE HAS BEEN USING IT AT TIMES RECENTLY. PT REPORTS SHE DOES NOT HAVE ANY SERVICES, SHE HAS SEVERAL NIECES IN THE AREA AND REPORTS THEY ARE ALL NURSES AND CHECK IN ON HER REGULARLY. PT REPORTS HER PCP IS DR ATKINS AND SHE HAS A HCP NAMING HER SISTER SALEEM AND NIECE ALEIDA HER AGENTS. PT REPORTS SHE IS AWARE SHE WILL LIKELY NEED STR AND SHE WOULD LIKE TO DISCUSS IT FURTHER WITH HER NIECE BEFORE NAMING HER PREFERENCES. CM WILL RESUME DISCUSSION WITH PT TOMORROW IMM DELIVERED CURRENT DC PLAN IS STR WILL NEED BLS
[2020-01-03] MEDS: predniSONE 5 MG TABLET PO (16:56)
[2020-01-03] MEDS: Phenytoin Sodium Extended 100 MG CAPSULE 300 MG PO (16:56)
[2020-01-04] VITALS (7 sets, daily range): BP systolic 100–116; BP diastolic 52–59; PULSE 88–101; RESP 18–19; TEMP 36.5–37.4; O2SAT 92–96; BMI 19.3
[2020-01-04] MEDS: 0.9 % Sodium Chloride 1,000 ML 75 ML IVCONT ×2 (04:10→16:14)
[2020-01-04] MEDS: predniSONE 5 MG TABLET PO (07:54)
[2020-01-04] MEDS: Phenytoin Sodium Extended 100 MG CAPSULE 300 MG PO (07:54)
[2020-01-04] MEDS: Nicotine 7 MG PATCH.TD24 TRANSDERMA (07:55)
--- NOTE | 2020-01-04 08:31 | MHC.CM.PN ---
pt still needs a PT eval , after the PT is completed and str is recomended then the patient's choices will be collected and refs . made. dc plan is most likely to str. cm to cont. to follow.
[2020-01-04 08:51] LABS: MANUAL DIFF FLAG NO
[2020-01-04 09:00] LABS: Basophils Percent Auto 0.6 % (0-2); Eosinophils Absolute Auto 0.1 X10*3/uL (0.0-0.4); Eosinophils Percent Auto 0.7 % (0-4); Hematocrit 33.8 % (37-47); Hemoglobin 10.7 g/dl (12.0-16.0); Imm Gran Abs Auto 0.03 X10*3/uL (0.00-0.03); Imm Gran Pct Auto 0.4 % (0.0-0.4); Lymphocytes Absolute Auto 1.5 X10*3/uL (1.2-4.9); Lymphocytes Percent Auto 22.2 % (20-40); Mean Corpuscular HGB Conc 31.7 g/dl (31.0-35.0); Mean Corpuscular Hemoglobin 30.6 pg (27.0-33.0); Mean Corpuscular Volume 96.6 fL (80-98); Mean Platelet Volume 8.8 fL (9.4-12.3); Monocytes Absolute Auto 0.5 X10*3/uL (0.1-1.2); Monocytes Percent Auto 6.6 % (2-11); Neutrophils Absolute Auto 4.7 X10*3/uL (2.0-8.3); Neutrophils Percent Auto 69.5 % (45-73); Platelet Count 248 X10*3/uL (160-400); Red Cell Distribution Width 13.2 % (11.0-16.0); White Blood Count 6.8 X10*3/uL (4.8-10.8)
--- NOTE | 2020-01-04 09:40 | HO.POSTANES ---
Post Anesthesia Evaluation Post Anesthesia Evaluation Vital Signs: Vital Signs Temp Pulse Resp BP Pulse Ox 01/04/20 07:45 98 F 101 H 18 112/57 L 95 01/04/20 03:47 98.1 F 95 19 100/58 L 96 01/04/20 00:00 99.4 F 94 19 109/54 L 95 01/03/20 23:50 99.4 F 100 19 109/51 L 95 Anesthesia: General Mental Status: Awake Pain Control: Satisfactory Nausea/Vomiting: None Hydration: Adequate Anesthesia-Related Issues: No Anes. Related Issues
[2020-01-04 10:04] LABS: Anion Gap 13 (12-20); Blood Urea Nitrogen 19 mg/dL (9-16); Calcium 7.5 mg/dL (8.4-10.2); Carbon Dioxide 25 mmol/L (22-29); Chloride 102 mmol/L (96-108); Creatinine Clr Calc Pharmacy 49.5; Estimated Glomerular Filt Rate > 60; Glucose Random 120 mg/dL (60-115); Potassium 3.7 mmol/l (3.3-5.1); Sodium 136 mmol/L (135-145)
--- NOTE | 2020-01-04 11:04 | MHC.CM.PN ---
pt requested ref. be made to shadi harmon. this has been done. cm to cont. to follow.
--- NOTE | 2020-01-04 13:33 | MHC.CLN ---
PT IS MILDLY MALNOURISHED WILL ADD ENSURE BID TO INCREASE KCALS SEE ALSO NUTRITION ASSESSMENT
--- NOTE | 2020-01-04 14:20 | PM.PNORT ---
Subjective Subjective Interval history: postop day 1 status post left hip intramedullary nail. Patient denies discomfort. She has not yet been out of bed to work with PT. She denies shortness of breath chest pain or palpitations. Physical Exam Vital Signs: Vital Signs: Vital Signs Temp Pulse Resp BP Pulse Ox 01/04/20 12:00 98.4 F 93 18 116/58 L 01/04/20 07:45 98 F 101 H 18 112/57 L 95 01/04/20 03:47 98.1 F 95 19 100/58 L 96 01/04/20 00:00 99.4 F 94 19 109/54 L 95 01/03/20 23:50 99.4 F 100 19 109/51 L 95 01/03/20 19:20 98.3 F 97 18 112/56 L 98 01/03/20 17:15 96.6 F L 96 19 94/63 96 Body Mass Index 19.3 Const: General: cooperative, healthy appearing and no acute distress Resp: Effort & Inspection: normal respiratory effort and able to speak in complete sentences Cardio: Rate: regular rate Peripheral pulses: Peripheral pulses 2+ throughout GI: Inspection: Yes normal to inspection Palpation (GI): Soft to palpation Skin: General skin exam: no rashes or lesions noted Extrem: Other: Left hip skin intact. Incision clean dry and intact. No drainage. Sensation intact. Progress Note: A&P Assessment and plan (1) Closed intertrochanteric fracture: Status: Acute Assessment and Plan: Continue pain management, begin PT/ OT begin Lovenox dispo planning PT eval Fall Risk Details Current Medications: Current Medications Generic Name Dose Route Start Last Admin Trade Name Leiq PRN Reason Stop Dose Admin Acetaminophen 650 mg 01/02/20 21:40 Acetaminophen 325 Mg Tablet PO Q6H PRN Pain, Mild (Pain Scale 1-3) Enoxaparin Sodium 40 mg 01/04/20 11:00 01/04/20 12:04 Enoxaparin Sodium 40 Mg/0.4 Ml Syringe SUBCUT Not Given Q24H AVTAR Fentanyl 25 mcg 01/03/20 09:33 Fentanyl Citrate/Pf 100 Mcg/2 Ml Vial IVPUSH Q5M PRN Pain, Moderate (Pain Scale 4-6 Sodium Chloride 1,000 mls @ 75 mls/hr 01/02/20 21:40 01/04/20 04:10 Ns IVCONT 75 mls/hr .[id number] AVTAR Administration Morphine Sulfate 2 mg 01/02/20 21:40 01/03/20 03:39 Morphine Sulfate 2 Mg/Ml Cartridge IVPUSH 2 mg Q4H PRN Administration Pain and Fever Nicotine 7 mg 01/03/20 09:00 01/04/20 07:55 Nicotine 7 Mg Patch.Td24 TRANSDERMA 7 mg DAILY AVTAR Administration Ondansetron HCl 4 mg 01/02/20 21:40 Ondansetron Hcl 4 Mg/2 Ml Vial IVPUSH Q8H PRN Nausea and Vomiting Ondansetron HCl 4 mg 01/03/20 09:33 Ondansetron Hcl 4 Mg/2 Ml Vial IVPUSH ONCE PRN Nausea and Vomiting Pharmacy Consult 1 each 01/02/20 18:33 Consult Rx Perform Med Rec MISCELLANE ONCE PRN Consult order Phenytoin Sodium 300 mg 01/03/20 16:00 01/04/20 07:54 Phenytoin Sodium Extended 100 Mg Capsule PO 300 mg DAILY AVTAR Administration Prednisone 5 mg 01/03/20 16:00 01/04/20 07:54 Prednisone 5 Mg Tablet PO 5 mg DAILY AVTAR Administration Sodium Chloride 3 ml 01/03/20 00:00 01/04/20 07:55 0.9 % Sodium Chloride Flush 3 Ml Syringe IVFLUSH Not Given QSHIFT AVTAR Time Spent With Patient Time: Total time spent is greater than 50% in coordination of care (as documented) at patient's floor/unit and/or counseling patient: Time with patient: less than 15 minutes
--- NOTE | 2020-01-04 15:42 | HO.PM.IMPN ---
Subjective Subjective Interval History: patient seen and examined at bedside patient reported pain Neurologic Neurologic: Denies Sensory deficit (Neuro) Physical Exam Vital Signs: Vital Signs: Vital Signs Temp Pulse Resp BP Pulse Ox 01/04/20 12:00 98.4 F 93 18 116/58 L 01/04/20 07:45 98 F 101 H 18 112/57 L 95 01/04/20 03:47 98.1 F 95 19 100/58 L 96 01/04/20 00:00 99.4 F 94 19 109/54 L 95 01/03/20 23:50 99.4 F 100 19 109/51 L 95 01/03/20 19:20 98.3 F 97 18 112/56 L 98 01/03/20 17:15 96.6 F L 96 19 94/63 96 Body Mass Index 19.3 Appearing in no acute distress head is normocephalic atraumatic eyes pupils are PERRLA sclera is anicteric mouth throat mucous membranes are intact and moist neck is supple no lymphadenopathy, no JVD noted lung sounds are clear to auscultation heart regular rate rhythm, clear S1, S2 positive bowel sounds, abdomen is soft, nontender+ musculoskeletal left leg shortened and externally rotated neuro patient is alert x3, no focal deficits Neuro: Sensory Exam: No Sensory deficit (Neuro) Objective Data Current Medications Generic Name Dose Route Start Last Admin Trade Name Freq PRN Reason Stop Dose Admin Acetaminophen 650 mg 01/02/20 21:40 Acetaminophen 325 Mg Tablet PO Q6H PRN Pain, Mild (Pain Scale 1-3) Enoxaparin Sodium 40 mg 01/04/20 11:00 01/04/20 12:04 Enoxaparin Sodium 40 Mg/0.4 Ml Syringe SUBCUT Not Given Q24H [facility] Fentanyl 25 mcg 01/03/20 09:33 Fentanyl Citrate/Pf 100 Mcg/2 Ml Vial IVPUSH Q5M PRN Pain, Moderate (Pain Scale 4-6 Sodium Chloride 1,000 mls @ 75 mls/hr 01/02/20 21:40 01/04/20 14:57 Ns IVCONT Not Given .[id number] AVTAR Morphine Sulfate 2 mg 01/02/20 21:40 01/03/20 03:39 Morphine Sulfate 2 Mg/Ml Cartridge IVPUSH 2 mg Q4H PRN Administration Pain and Fever Nicotine 7 mg 01/03/20 09:00 01/04/20 07:55 Nicotine 7 Mg Patch.Td24 TRANSDERMA 7 mg DAILY AVTAR Administration Ondansetron HCl 4 mg 01/02/20 21:40 Ondansetron Hcl 4 Mg/2 Ml Vial IVPUSH Q8H PRN Nausea and Vomiting Ondansetron HCl 4 mg 01/03/20 09:33 Ondansetron Hcl 4 Mg/2 Ml Vial IVPUSH ONCE PRN Nausea and Vomiting Pharmacy Consult 1 each 01/02/20 18:33 Consult Rx Perform Med Rec MISCELLANE ONCE PRN Consult order Phenytoin Sodium 300 mg 01/03/20 16:00 01/04/20 07:54 Phenytoin Sodium Extended 100 Mg Capsule PO 300 mg DAILY AVTAR Administration Prednisone 5 mg 01/03/20 16:00 01/04/20 07:54 Prednisone 5 Mg Tablet PO 5 mg DAILY AVTAR Administration Sodium Chloride 3 ml 01/03/20 00:00 01/04/20 15:26 0.9 % Sodium Chloride Flush 3 Ml Syringe IVFLUSH Not Given QSHIFT [facility] Labs CBC & Chem 7: 01/04/20 08:39 01/04/20 08:39 Assessment and Plan (1) Closed intertrochanteric fracture: Status: Acute (2) Arthritis: Status: Acute (3) Seizure disorder: Status: Acute (4) Syncope: Status: Acute Assessment and Plan: 84-year-old woman admitted after a fall and found to have intertrochanteric femoral fracture. Hip fracture status post fall status post surgery orthopedic following pain management PT evaluation Syncope. Unknown if patient had a syncopal episode versus seizure versus mechanical fall. appears more mechanical no arrhythmia on telemetry History of seizure disorder. continue Dilantin Denies recent seizure activity. Smoker. Nicotine replacement, discussed smoking cessation. DVT prophylaxis with Lovenox DNR possible discharge tomorrow if remains stable
[2020-01-04] MEDS: Acetaminophen 325 MG TABLET 650 MG PO (16:16)
[2020-01-05] VITALS (8 sets, daily range): BP systolic 101–129; BP diastolic 53–63; PULSE 69–96; RESP 18–19; TEMP 36–36.8; O2SAT 94–98
--- NOTE | 2020-01-05 | XR_ITS ---
EXAMINATION: XR FOOT, left CLINICAL INFORMATION: Left foot pain. COMPARISON: Left foot 02/10/2018 TECHNIQUE: 2 views of the left foot. FINDINGS: There is osteopenia. There is no fracture. No bone destruction or abnormal periosteal reaction. Joint spaces are normal. No significant arthropathy. There is a small plantar calcaneal spur. There is no soft tissue abnormality. XR/XR foot LT 2V IMPRESSION: Normal left foot.
[2020-01-05] MEDS: Morphine Sulfate 2 MG/ML CARTRIDGE IVPUSH ×2 (00:58→20:40)
[2020-01-05] MEDS: 0.9 % Sodium Chloride 1,000 ML 75 ML IVCONT ×2 (05:59→17:31)
[2020-01-05] MEDS: predniSONE 5 MG TABLET PO (07:57)
[2020-01-05] MEDS: Nicotine 7 MG PATCH.TD24 TRANSDERMA (07:57)
[2020-01-05] MEDS: Phenytoin Sodium Extended 100 MG CAPSULE 300 MG PO (07:57)
--- NOTE | 2020-01-05 09:53 | PM.PNORT ---
Subjective Subjective Interval history: POD 2 s/p Lt hip IMN no overnight events, she is doing well, worked with PT yesterday and did ok. No concerns. Physical Exam Vital Signs: Vital Signs: Vital Signs Temp Pulse Resp BP Pulse Ox 01/05/20 08:49 98 01/05/20 08:00 97.5 F 96 18 129/58 L 97 01/05/20 03:04 98.0 F 86 19 107/63 94 01/04/20 23:50 97.7 F 88 19 106/56 L 92 01/04/20 19:24 98.4 F 88 18 108/52 L 93 01/04/20 15:42 98.2 F 96 18 105/59 L 93 01/04/20 12:00 98.4 F 93 18 116/58 L Body Mass Index 19.3 Const: General: cooperative, healthy appearing and no acute distress Resp: Effort & Inspection: normal respiratory effort and able to speak in complete sentences Cardio: Rate: regular rate Peripheral pulses: Peripheral pulses 2+ throughout GI: Inspection: Yes normal to inspection Palpation (GI): Soft to palpation Skin: General skin exam: no rashes or lesions noted Extrem: Other: left hip bandage intact, no erythema or edema, sensation intact Progress Note: A&P Assessment and plan (1) Closed intertrochanteric fracture: Status: Acute Assessment and Plan: cont pain mgmnt cont dvt ppx cont PT/OT dispo planning when medically stable Fall Risk Details Current Medications: Current Medications Generic Name Dose Route Start Last Admin Trade Name Freq PRN Reason Stop Dose Admin Acetaminophen 650 mg 01/02/20 21:40 01/04/20 16:16 Acetaminophen 325 Mg Tablet PO 325 mg Q6H PRN Administration Pain, Mild (Pain Scale 1-3) Enoxaparin Sodium 40 mg 01/04/20 11:00 01/04/20 12:04 Enoxaparin Sodium 40 Mg/0.4 Ml Syringe SUBCUT Not Given Q24H AVTAR Fentanyl 25 mcg 01/03/20 09:33 Fentanyl Citrate/Pf 100 Mcg/2 Ml Vial IVPUSH Q5M PRN Pain, Moderate (Pain Scale 4-6 Sodium Chloride 1,000 mls @ 75 mls/hr 01/02/20 21:40 01/05/20 05:59 Ns IVCONT 75 mls/hr .[id number] AVTAR Administration Morphine Sulfate 2 mg 01/02/20 21:40 01/05/20 00:58 Morphine Sulfate 2 Mg/Ml Cartridge IVPUSH 2 mg Q4H PRN Administration Pain and Fever Nicotine 7 mg 01/03/20 09:00 01/05/20 07:57 Nicotine 7 Mg Patch.Td24 TRANSDERMA 7 mg DAILY AVTAR Administration Ondansetron HCl 4 mg 01/02/20 21:40 Ondansetron Hcl 4 Mg/2 Ml Vial IVPUSH Q8H PRN Nausea and Vomiting Ondansetron HCl 4 mg 01/03/20 09:33 Ondansetron Hcl 4 Mg/2 Ml Vial IVPUSH ONCE PRN Nausea and Vomiting Pharmacy Consult 1 each 01/02/20 18:33 Consult Rx Perform Med Rec MISCELLANE ONCE PRN Consult order Phenytoin Sodium 300 mg 01/03/20 16:00 01/05/20 07:57 Phenytoin Sodium Extended 100 Mg Capsule PO 100 mg DAILY AVTAR Administration Prednisone 5 mg 01/03/20 16:00 01/05/20 07:57 Prednisone 5 Mg Tablet PO 5 mg DAILY AVTAR Administration Sodium Chloride 3 ml 01/03/20 00:00 01/05/20 08:02 0.9 % Sodium Chloride Flush 3 Ml Syringe IVFLUSH Not Given QSHIFT AVTAR Time Spent With Patient Time: Total time spent is greater than 50% in coordination of care (as documented) at patient's floor/unit and/or counseling patient: Time with patient: less than 15 minutes
--- NOTE | 2020-01-05 16:56 | HO.PM.IMPN ---
Subjective Subjective Date of Service: 01/05/20 Interval History: denies any chest pain or sob. Review of Systems hip fx, ? syncope Physical Exam Vital Signs: Vital Signs: Vital Signs Temp Pulse Resp BP Pulse Ox 01/05/20 15:46 98.2 F 81 18 109/57 L 95 01/05/20 11:17 97.2 F 76 18 108/56 L 96 01/05/20 09:50 82 105/63 01/05/20 08:49 98 01/05/20 08:00 97.5 F 96 18 129/58 L 97 01/05/20 03:04 98.0 F 86 19 107/63 94 01/04/20 23:50 97.7 F 88 19 106/56 L 92 01/04/20 19:24 98.4 F 88 18 108/52 L 93 Body Mass Index 19.3 Physical exam: Cvs: [id number], [id number] , no murmur res: clear to auscultation ,no rhonchii or wheezing abd: no rebound or guarding ,nt, bs present. ext pulses present , no cyanosis neuro: axo3 , nonfocal. Objective Data Current Medications Generic Name Dose Route Start Last Admin Trade Name Freq PRN Reason Stop Dose Admin Acetaminophen 650 mg 01/02/20 21:40 01/04/20 16:16 Acetaminophen 325 Mg Tablet PO 325 mg Q6H PRN Administration Pain, Mild (Pain Scale 1-3) Enoxaparin Sodium 40 mg 01/04/20 11:00 01/05/20 11:15 Enoxaparin Sodium 40 Mg/0.4 Ml Syringe SUBCUT Not Given Q24H AVTAR Fentanyl 25 mcg 01/03/20 09:33 Fentanyl Citrate/Pf 100 Mcg/2 Ml Vial IVPUSH Q5M PRN Pain, Moderate (Pain Scale 4-6 Sodium Chloride 1,000 mls @ 75 mls/hr 01/02/20 21:40 01/05/20 05:59 Ns IVCONT 75 mls/hr .[id number] AVTAR Administration Morphine Sulfate 2 mg 01/02/20 21:40 01/05/20 00:58 Morphine Sulfate 2 Mg/Ml Cartridge IVPUSH 2 mg Q4H PRN Administration Pain and Fever Nicotine 7 mg 01/03/20 09:00 01/05/20 07:57 Nicotine 7 Mg Patch.Td24 TRANSDERMA 7 mg DAILY AVTAR Administration Ondansetron HCl 4 mg 01/02/20 21:40 Ondansetron Hcl 4 Mg/2 Ml Vial IVPUSH Q8H PRN Nausea and Vomiting Ondansetron HCl 4 mg 01/03/20 09:33 Ondansetron Hcl 4 Mg/2 Ml Vial IVPUSH ONCE PRN Nausea and Vomiting Pharmacy Consult 1 each 01/02/20 18:33 Consult Rx Perform Med Rec MISCELLANE ONCE PRN Consult order Phenytoin Sodium 300 mg 01/03/20 16:00 01/05/20 07:57 Phenytoin Sodium Extended 100 Mg Capsule PO 100 mg DAILY AVTAR Administration Prednisone 5 mg 01/03/20 16:00 01/05/20 07:57 Prednisone 5 Mg Tablet PO 5 mg DAILY AVTAR Administration Sodium Chloride 3 ml 01/03/20 00:00 01/05/20 16:22 0.9 % Sodium Chloride Flush 3 Ml Syringe IVFLUSH Not Given QSHIFT AVTAR Labs CBC & Chem 7: 01/04/20 08:39 01/04/20 08:39 Assessment and Plan (1) Closed intertrochanteric fracture: Status: Acute (2) Arthritis: Status: Acute (3) Seizure disorder: Status: Acute (4) Syncope: Status: Acute Assessment and Plan: 84-year-old woman admitted after a fall and found to have intertrochanteric femoral fracture. 1.Hip fracture status post fall status post surgery orthopedic following pain management PT evaluation 2.Syncope. Unknown if patient had a syncopal episode versus seizure versus mechanical fall. appears more mechanical no arrhythmia on telemetry will add neuro eval 3.History of seizure disorder. continue Dilantin Denies recent seizure activity. 4.Smoker. Nicotine replacement, discussed smoking cessation. 5.DVT prophylaxis with Lovenox DNR possible discharge tomorrow if remains stable
[2020-01-05 17:35] LABS: SARS COV2 PCR INHOUSE NEGATIVE (Negative)
[2020-01-06 03:23] VITALS: BP 118/57; PULSE 82; RESP 19; TEMP 36.8; O2SAT 94
[2020-01-06 06:34] LABS: Hematocrit 28.3 % (37-47); Mean Corpuscular HGB Conc 31.8 g/dl (31.0-35.0); Mean Corpuscular Hemoglobin 30.3 pg (27.0-33.0); Mean Corpuscular Volume 95.3 fL (80-98); Mean Platelet Volume 9.1 fL (9.4-12.3); Platelet Count 225 X10*3/uL (160-400); Red Blood Count 2.97 X10*6/uL (4.20-5.50); White Blood Count 5.3 X10*3/uL (4.8-10.8)
[2020-01-06] MEDS: 0.9 % Sodium Chloride 1,000 ML 75 ML IVCONT (06:55)
[2020-01-06 07:50] VITALS: BP 116/65; PULSE 86; RESP 18; TEMP 36.1; O2SAT 94
--- NOTE | 2020-01-06 08:29 | MHC.CM.PN ---
dc plan is to [facility]. ref. made pt accepted. cm to cont. to follow.
[2020-01-06] MEDS: Nicotine 7 MG PATCH.TD24 TRANSDERMA (08:46)
[2020-01-06] MEDS: Omeprazole 20 MG CAPSULE.DR PO (08:46)
[2020-01-06] MEDS: Phenytoin Sodium Extended 100 MG CAPSULE 300 MG PO (08:47)
[2020-01-06] MEDS: predniSONE 5 MG TABLET PO (08:50)
[2020-01-06 09:00] VITALS: O2SAT 94
--- NOTE | 2020-01-06 10:30 | PM.NEUROCN ---
History of Present Illness Data of Consult Primary Care Provider: Unknown Physician 84 years old woman with past history of seizure disorder though details were not clear and she was unable to provide any meaningful history about it. She said that she was not seen any neurologist. She was brought to hospital this morning after she fell down. Details of falls were not clear. She did not know what happened. There was no witness. There was no particular physical injury. When I saw her she was comfortable with no distress. Review of Systems Review of Systems: Review of system was negative for any recent cold or flu-like illness or exposure to new medicine. ENT: Reports dizziness Neurologic: Reports system reviewed and no additional complaints, except as documented, Reports dizziness and Denies Sensory deficit (Neuro) PMFSH Past Medical History Medical History Arthritis Seizure disorder Smoker Functional capacity: independent ambulation Family History Family History Sister Leukemia Surgical History Surgical History History of neck surgery Social History Social History Household Members: None Housing: House Are you a primary healthcare network consultant to a significant other at home: No Do you presently have visiting nurse or other home services: No Alcohol intake: current Alcohol intake frequency: holidays/special occasions only Smoking Status: Current every day smoker Tobacco Type: Cigarette Smoked in Last 30 Days: Yes Patient Interested in Nicotine Replacement: Yes Patient Given Instructions on How to Stop Smoking: Yes Date Education Initiated: 01/02/20 Second Hand Smoke Exposure: No Use of substances other than those prescribed or required for medical reasons: No Currently Displaying Signs/Symptoms of Drug Intoxication Withdrawal: No Have you been hit, kicked, punched, or otherwise hurt by someone within the past year? If so, by whom?: No Do you feel safe in your current relationship?: No Current Relationship Is there a partner from a previous relationship who is making you feel unsafe now?: No Are you made to feel afraid or neglected: No Spiritual Healthcare Practices: NONE Rastafarian Healthcare Practices: NONE Cultural Healthcare Practices: NONE Advance Directives: No Advance Directives Information Provided: Yes Do you have thoughts of harming others: None Do you have a plan to hurt others: No Plan Recently lost weight without trying: Yes service: No Current occupational status: retired Meds Allergies Allergy/AdvReac Type Severity Reaction Status Date / Time No Known Allergies Allergy Verified 01/03/20 09:18 [No Known Allergies*] Home Medications Medication Instructions Recorded Confirmed Type phenytoin sodium extended 300 mg PO DAILY 01/02/20 01/03/20 History [Dilantin Extended] prednisone 5 mg PO DAILY 01/03/20 01/03/20 History Physical Exam Vital Signs: Vital Signs: Vital Signs Temp Pulse Resp BP Pulse Ox 01/06/20 09:00 94 01/06/20 07:50 96.9 F 86 18 116/65 94 01/06/20 03:23 98.2 F 82 19 118/57 L 94 01/05/20 23:19 96.8 F 69 19 101/53 L 94 01/05/20 19:41 98.1 F 83 18 102/61 96 01/05/20 15:46 98.2 F 81 18 109/57 L 95 01/05/20 11:17 97.2 F 76 18 108/56 L 96 Body Mass Index 19.3 She was alert and awake with normal spontaneity of speech fluency comprehension and affect. Arthritic changes are noted in her hands and feet. Diffuse muscle atrophy was noted in arms or legs. Pupils were round reactive. Face was symmetrical. There was no obvious focal weakness. Deep tendon reflexes were trace to absent with flexor plantars. Neuro: Sensory Exam: No Sensory deficit (Neuro) Results Labs CBC & Chem 7: 01/06/20 05:58 01/04/20 08:39 Labs: Short CBC 01/06/20 Range/Units 05:58 WBC 5.3 (4.8-10.8) X10*3/uL Hgb 9.0 L (12.0-16.0) g/dl Hct 28.3 L (37-47) % Plt Count 225 (160-400) X10*3/uL noncontrast head CT revealed moderately severe diffuse cerebral atrophy. Assessment and Plan (1) Syncope: Status: Acute 84 years old woman who, according to the chart, has some type of seizure disorder in the past but she was not taking any medicine and not following with any neurologist. She was brought to hospital after she fell down. Details were unclear and it was not clear if she had a convulsion or not. At this time she was back to baseline on my recommendation would be to discharge her. She has good CS as an outpatient for further evaluation of seizure disorder.
[2020-01-06 11:35] VITALS: BP 100/54; PULSE 86; RESP 18; TEMP 36.6; O2SAT 96
--- NOTE | 2020-01-06 12:22 | PM.DS ---
DS: Providers Provider Date of admission: 01/02/20 19:15 Primary care physician: Unknown Physician Consults: 01/04/20 07:13 Consult to Orthopedics Routine Consulting Provider: Sohail Delgado Reason for consultation: post op Has provider been notified: Yes 01/05/20 16:58 Consult to Neurology Routine Consulting Provider: [facility] Reason for consultation: syncope ? seizure DS: Diagnosis Discharge Diagnosis (1) Syncope: Status: Acute (2) Closed intertrochanteric fracture: Status: Acute (3) Seizure disorder: Status: Acute DS: Summary Hospital Course Hospital Course: HPI: 84-year-old woman presented to the ER after fall. She reported that around 23:00 last night she got up from her liver room and suddenly she remembers being on the ground. Unfortunately she does not remember if she lost consciousness or tripped over her feet as she reports previous history of syncope in the past. She did report that she got up quickly from her seated position. She denied chest pain, shortness of breath, nausea, vomiting, diarrhea. She reports that she was on the ground all night and her niece who visit her found her in the morning. Unfortunately patient was found to have a displaced proximal left femoral fracture primarily intertrochanteric. Otherwise brain CT and cervical spine CT were negative for acute abnormality. Labs within acceptable limits. Vital signs stable. Patient be admitted for further management treatment of acute femur fracture. Hospital Course problem virgen section: 84-year-old woman admitted after a fall and found to have intertrochanteric femoral fracture. 1.Hip fracture status post fall-s/p surgery left hip IMN. seems feeling better with pain management and PT. Discuss surgery patient is going to rehab. Left foot area pain seems improving, ortho said that continue to monitor for now . 2. Postop anemia: Probably related to send fracture and surgery. H&H slowly trending down in 9 range patient is asymptomatic Monitor H&H in 2 days in rehab and further management as per rehab. 3.Syncope. Unknown if patient had a syncopal episode versus seizure versus mechanical fall. Noted to be thought appears more mechanical. no arrhythmia on telemetry Neuro saw the patient has seizure disorder in the past but she was not taking any medicine and not following with any neurologist. She was brought to hospital after she fell down. Details were unclear and it was not clear if she had a convulsion or not. At this time she was back to baseline. patient needs to fu neurology outpatient for further evaluation of seizure disorder. continue Dilantin Time Spent with Patient Time attestation: Total time spent providing and/or coordinating discharge services: Physical Exam Vital Signs: Vital Signs: Vital Signs Temp Pulse Resp BP Pulse Ox 01/06/20 11:35 97.8 F 86 18 100/54 L 96 01/06/20 09:00 94 01/06/20 07:50 96.9 F 86 18 116/65 94 01/06/20 03:23 98.2 F 82 19 118/57 L 94 01/05/20 23:19 96.8 F 69 19 101/53 L 94 01/05/20 19:41 98.1 F 83 18 102/61 96 01/05/20 15:46 98.2 F 81 18 109/57 L 95 Body Mass Index 19.3 Physical exam: Cvs: rrr, [id number] , no murmur res: clear to auscultation ,no rhonchii or wheezing abd: no rebound or guarding ,nt, bs present. ext pulses present , no cyanosis left hip fx area -no erythema or discharge , left foot has mild pain also. neuro: axo3 , nonfocal. DS: Data Data Completed and Pending Labs on day of discharge: Labs from last 24 hours 01/06/20 01/05/20 05:58 Unknown WBC 5.3 RBC 2.97 L Hgb 9.0 L Hct 28.3 L MCV 95.3 MCH 30.3 MCHC 31.8 RDW 13.0 Plt Count 225 MPV 9.1 L Absolute Nucleated RBC 0.000 Nucleated RBC % (auto) 0.0 Coronavirus (PCR) NEGATIVE Discharge Plan Discharge Patient Disposition: er SNF Referrals: Tia King [Outside] Sarah Casper PA-C [Physician Computer Security Specialist] - (Follow up 2 weeks post op) Physician,Unknown [Primary Care Provider] - Discharge Medications: New enoxaparin 40 mg/0.4 mL Syringe 40 mg subcut Q24H 30 Days Qty: 12 RF: 0 acetaminophen 325 mg Tablet 650 mg PO Q6H PRN (Reason: Pain, Mild (Pain Scale 1-3)) Qty: 14 RF: 0 omeprazole 20 mg Capsule,Delayed Release(Dr/Ec) 20 mg PO DAILY@0630 Qty: 30 RF: 0 nicotine 7 mg/24 hr Patch 24 Hour 7 mg transdermal DAILY Qty: 14 RF: 0 oxycodone 5 mg capsule 5 mg PO BID PRN (Reason: pain) Qty: 14 RF: 0 docusate sodium [Colace] 100 mg capsule 100 mg PO DAILY Qty: 30 RF: 0 polyethylene glycol 3350 [Miralax] 17 gram powder in packet 17 g PO DAILY PRN (Reason: constipation) Qty: 30 RF: 0 Continued phenytoin sodium extended [Dilantin Extended] 100 mg Capsule 300 mg PO DAILY RF: 0 prednisone 5 mg Tablet 5 mg PO DAILY RF: 0 Discharge Orders: Discharge Order (Routine); Ordered 01/06/20 Ordered By: Dagoberto Linares Diet: advance to your usual diet Activity on Discharge: As tolerated Discharge Date/Time: 01/06/20 15:51 Activity Restrictions/Additional Instructions: Gait training, strengthening, ADLs Continue LOVENOX for dvt ppx x4 weeks Keep dressing clean,dry and intact-no showering or tub baths Follow up with Orthopedics in 2 weeks Visit Report Forms: Patient Portal Discharge page Care Plan Goals: Please continue above management, patient has mild post of anemia, monitor CBC and rehab and further management as per rehab. In addition patient is to follow-up with orthopedic outpatient Health Concerns: As above. Plan of Treatment: Physical Therapy Pain management DVT prophylaxis
--- NOTE | 2020-01-06 12:36 | PM.PNORT ---
Subjective Subjective Interval history: POD 3 s/p LT hip IMN Sitting in chair, doing well, no concerns states her left hip feels ok. . Physical Exam Vital Signs: Vital Signs: Vital Signs Temp Pulse Resp BP Pulse Ox 01/06/20 11:35 97.8 F 86 18 100/54 L 96 01/06/20 09:00 94 01/06/20 07:50 96.9 F 86 18 116/65 94 01/06/20 03:23 98.2 F 82 19 118/57 L 94 01/05/20 23:19 96.8 F 69 19 101/53 L 94 01/05/20 19:41 98.1 F 83 18 102/61 96 01/05/20 15:46 98.2 F 81 18 109/57 L 95 Body Mass Index 19.3 Const: General: cooperative, healthy appearing and no acute distress Resp: Effort & Inspection: normal respiratory effort and able to speak in complete sentences Cardio: Rate: regular rate Peripheral pulses: Peripheral pulses 2+ throughout GI: Inspection: Yes normal to inspection Palpation (GI): Soft to palpation Skin: General skin exam: no rashes or lesions noted Extrem: Other: left hip incision clean, dry and intact. No erythema, mild edema, sensation intact Progress Note: A&P Assessment and plan (1) Closed intertrochanteric fracture: Status: Acute Assessment and Plan: Continue pain mgmnt continue dvt ppx PT/OT for left hip Dispo planning-Pending PT eval, pain mgmnt Fall Risk Details Current Medications: Current Medications Generic Name Dose Route Start Last Admin Trade Name Freq PRN Reason Stop Dose Admin Acetaminophen 650 mg 01/02/20 21:40 01/04/20 16:16 Acetaminophen 325 Mg Tablet PO 325 mg Q6H PRN Administration Pain, Mild (Pain Scale 1-3) Enoxaparin Sodium 40 mg 01/04/20 11:00 01/06/20 11:01 Enoxaparin Sodium 40 Mg/0.4 Ml Syringe SUBCUT Not Given Q24H AVTAR Fentanyl 25 mcg 01/03/20 09:33 Fentanyl Citrate/Pf 100 Mcg/2 Ml Vial IVPUSH Q5M PRN Pain, Moderate (Pain Scale 4-6 Morphine Sulfate 2 mg 01/02/20 21:40 01/05/20 20:40 Morphine Sulfate 2 Mg/Ml Cartridge IVPUSH 2 mg Q4H PRN Administration Pain and Fever Nicotine 7 mg 01/03/20 09:00 01/06/20 08:46 Nicotine 7 Mg Patch.Td24 TRANSDERMA 7 mg DAILY AVTAR Administration Omeprazole 20 mg 01/06/20 08:30 01/06/20 08:46 Omeprazole 20 Mg Capsule.Dr PO 20 mg DAILY@0630 AVTAR Administration Ondansetron HCl 4 mg 01/02/20 21:40 Ondansetron Hcl 4 Mg/2 Ml Vial IVPUSH Q8H PRN Nausea and Vomiting Ondansetron HCl 4 mg 01/03/20 09:33 Ondansetron Hcl 4 Mg/2 Ml Vial IVPUSH ONCE PRN Nausea and Vomiting Pharmacy Consult 1 each 01/02/20 18:33 Consult Rx Perform Med Rec MISCELLANE ONCE PRN Consult order Phenytoin Sodium 300 mg 01/03/20 16:00 01/06/20 08:47 Phenytoin Sodium Extended 100 Mg Capsule PO 300 mg DAILY AVTAR Administration Prednisone 5 mg 01/03/20 16:00 01/06/20 08:50 Prednisone 5 Mg Tablet PO 5 mg DAILY AVTAR Administration Sodium Chloride 3 ml 01/03/20 00:00 01/06/20 08:48 0.9 % Sodium Chloride Flush 3 Ml Syringe IVFLUSH Not Given QSHIFT AVTAR Time Spent With Patient Time: Total time spent is greater than 50% in coordination of care (as documented) at patient's floor/unit and/or counseling patient: Time with patient: less than 15 minutes
== END 2020-01-06 15:51 | disposition skilled nursing facility (03) | DRG 482 ==
LOC: HO.ED 18:27 → HO.IMC 19:33
PROVIDERS: Internal Medicine; Nurse Practitioner Acute Care; Orthopaedic Surgery; Admitting Provider Internal Medicine; Emergency Provider Emergency Medicine; Visit Provider Internal Medicine
PROC: 0QS736Z Reposition Left Upper Femur with Intramedullary Internal Fixation Device, Percutaneous Approach (ICD-10-PCS; principal; 2020-01-03 08:30)
DX: S72.142A Displaced intertrochanteric fracture of left femur, initial encounter for closed fracture (principal); M19.90 Unspecified osteoarthritis, unspecified site; G40.909 Epilepsy, unspecified, not intractable, without status epilepticus; W01.0XXA Fall on same level from slipping, tripping and stumbling without subsequent striking against object, initial encounter; Y93.9 Activity, unspecified; Y92.009 Unspecified place in unspecified non-institutional (private) residence as the place of occurrence of the external cause; Y99.9 Unspecified external cause status; Z20.828 Contact with and (suspected) exposure to other viral communicable diseases; Z91.19 Patient's noncompliance with other medical treatment and regimen; F17.210 Nicotine dependence, cigarettes, uncomplicated; Z71.6 Tobacco abuse counseling; Z79.899 Other long term (current) drug therapy; Z66 Do not resuscitate
CPT/HCPCS: 36415; 70450; 72125; 73502; 73620; 80048; 81001; 85025; 85027; 86850; 86900; 86901; 87635; 93005; 96374; 97110; 97162; 97166; 97530; 97535; 99285; C1713; C1769; J0690; J1100; J1650; J2270; J2370; J2405; J3010

== ENCOUNTER → 2020-01-18 12:59 | Outpatient (BNVA) | payer MEDICARE, SELFPAY | PROVIDERS: Visit Provider Physician Assistant | DX: S72.143D Displaced intertrochanteric fracture of unspecified femur, subsequent encounter for closed fracture with routine healing (principal) | CPT/HCPCS: 99212 ==

== ENCOUNTER 2020-02-12 10:49 | Outpatient (REF) | payer MEDICARE, SELFPAY ==
--- NOTE | 2020-02-12 10:49 | XR_ITS ---
EXAMINATION: XR hip LT min 2V, XR knee LT 2V, XR knee standing BI CLINICAL INFORMATION: Reason for Exam S72.142A - Displaced intertrochanteric fracture of left femur, initial encounter for closed fracture COMPARISON: None available at the time of this dictation. TECHNIQUE: Bilateral knee frontal standing, left femur frontal and lateral, left knee lateral. FINDINGS: BONES: Fracture of the right femoral neck with intramedullary jemma in place properly positioned unchanged. JOINTS: Narrowing of joint spaces and developed osteophytes from the edges of articular surfaces suggest degenerative osteoarthritis. SOFT TISSUE: There are heavy vascular calcifications. 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 Intramedullary jemma, across ORIF left femoral fracture remain in place properly positioned.
--- NOTE | 2020-02-12 11:08 | XR_ITS ---
EXAMINATION: XR hip LT min 2V, XR knee LT 2V, XR knee standing BI CLINICAL INFORMATION: Reason for Exam S72.142A - Displaced intertrochanteric fracture of left femur, initial encounter for closed fracture COMPARISON: None available at the time of this dictation. TECHNIQUE: Bilateral knee frontal standing, left femur frontal and lateral, left knee lateral. FINDINGS: BONES: Fracture of the right femoral neck with intramedullary jemma in place properly positioned unchanged. JOINTS: Narrowing of joint spaces and developed osteophytes from the edges of articular surfaces suggest degenerative osteoarthritis. SOFT TISSUE: There are heavy vascular calcifications. 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 Intramedullary jemma, across ORIF left femoral fracture remain in place properly positioned.
--- NOTE | 2020-02-12 11:08 | XR_ITS ---
EXAMINATION: XR hip LT min 2V, XR knee LT 2V, XR knee standing BI CLINICAL INFORMATION: Reason for Exam S72.142A - Displaced intertrochanteric fracture of left femur, initial encounter for closed fracture COMPARISON: None available at the time of this dictation. TECHNIQUE: Bilateral knee frontal standing, left femur frontal and lateral, left knee lateral. FINDINGS: BONES: Fracture of the right femoral neck with intramedullary jemma in place properly positioned unchanged. JOINTS: Narrowing of joint spaces and developed osteophytes from the edges of articular surfaces suggest degenerative osteoarthritis. SOFT TISSUE: There are heavy vascular calcifications. 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 Intramedullary jemma, across ORIF left femoral fracture remain in place properly positioned.
== END 2020-02-12 10:50 | disposition home or self-care (01) ==
LOC: HO.HOSX 10:49
PROVIDERS: Visit Provider Physician Assistant
DX: S72.142A Displaced intertrochanteric fracture of left femur, initial encounter for closed fracture (principal); M17.12 Unilateral primary osteoarthritis, left knee
CPT/HCPCS: 73502; 73560; 73565; 99212

== ENCOUNTER 2020-08-31 19:53 | Inpatient (IN) | payer MEDICARE, SELFPAY ==
--- NOTE | ~2020-08-31 | CT_ITS ---
EXAMINATION: CT LUMBAR SPINE WITHOUT CONTRAST CLINICAL INFORMATION: Lumbar pain COMPARISON: None TECHNIQUE: Axial images obtained through the lumbar spine. Coronal and sagittal reformatted images are performed at the CT scanner This CT examination was performed using dose optimization techniques as appropriate, variously including the following: *Automated exposure control *Adjustment of mA and/or kV according to patient size (this includes techniques or standardized protocols for targeted exams where dose is matched to indication/reason for exam; i.e. extremities or head) *Use of iterative reconstruction technique DLP; 280 mGy-cm FINDINGS: There is osteopenia. Lumbar vertebrae have normal height and normal alignment. Slight depression of superior endplate of T12 without fracture line. There is narrowed L5-S1 with vertebral endplate spurs. Minimal degenerative lipping at the anterior endplates of the lumbar vertebrae. There is multilevel degenerative facet joint arthrosis of the mid and lower lumbar spine disc levels. There is heavy vascular calcification of the aorta without aneurysm. Calcified gallstone within the gallbladder. Kidneys are unremarkable. Large volume of stool in colon. Diverticulosis of the sigmoid colon without evidence of diverticulitis. The bladder is unremarkable. Spinal levels: T12-L1: Disc height is normal. No focal disc protrusion or central canal stenosis. Neural foramina open. Facet joints are normal. L1-L2: Lumbar disc height is normal. No focal disc protrusion. No central canal stenosis. Neural foramina are open. Facet joints are normal. L2-L3: Lumbar disc height is normal. No focal disc protrusion. Moderate central canal stenosis due to ligamentum hypertrophy and degenerative change of facet joints. Neural foramina are open. L3-L4: Lumbar disc height is normal. No focal disc protrusion. Severe central canal stenosis. This is due to ligamentum flavum hypertrophy and marked degenerative change of the facet joints. Mild narrowing of the neural foramina bilateral. L4-L5: Lumbar disc height is normal. No focal disc protrusion. There is severe central canal stenosis due to ligamentum flavum hypertrophy and degenerative change of facet joints. Neural foramina are mildly narrowed bilateral L5-S1: Narrowed disc height. No focal disc protrusion. No central canal stenosis. Neural foramina are mildly narrowed bilateral degenerative changes of the facet joint CT/CT lumbar spine wo con IMPRESSION: 1. No focal disc protrusion. 2. 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 Mild narrowing of neural foramina bilaterally L3-L4 and L4-L5.
--- NOTE | ~2020-08-31 | XR_ITS ---
EXAMINATION: XR BILATERAL HIPS WITH AP PELVIS CLINICAL INFORMATION: Pain bilateral hips. Fall. COMPARISON: Sacrum and coccyx today. Left hip 02/12/2020 TECHNIQUE: Frontal view of pelvis. Cone-down AP and oblique view of each hip FINDINGS: There is osteopenia. No acute displaced fracture of pelvis or hips is an old fracture of the left femur with intramedullary jemma and compression screw transfixing fracture. There is degenerative joint narrowing of the hips bilateral. There are heavy vascular calcification of the aorta and iliac arteries. Large volume of stool in colon. XR/XR hips YADIRA min 3V IMPRESSION: 1. Osteopenia. 2. No displaced fracture of pelvis or hips. If the pain persists consider CT for follow-up.
--- NOTE | ~2020-08-31 | CT_ITS ---
EXAMINATION: HEAD CT WITHOUT CONTRAST CERVICAL SPINE CT WITHOUT CONTRAST CLINICAL INFORMATION: Fall COMPARISON: 01/02/2020 TECHNIQUE: Contiguous axial imaging of the head was performed without the administration of IV contrast. Axial multidetector volumetric images were also performed through the cervical spine without intravenous contrast. Multiplanar reconstructed images in coronal and sagittal orientations were submitted. This CT examination was performed using dose optimization techniques as appropriate, variously including the following: *Automated exposure control *Adjustment of mA and/or kV according to patient size (this includes techniques or standardized protocols for targeted exams where dose is matched to indication/reason for exam; i.e. extremities or head) *Use of iterative reconstruction technique DOSE: 981 mGy-cm FINDINGS: HEAD: There is no evidence of acute intracranial hemorrhage or territorial infarction. No abnormal mass-effect or midline shift. No extra-axial fluid collections. Langley to white matter differentiation is well preserved. Mild enlargement of the ventricles, sulci, and extra-axial CSF spaces is indicative of parenchymal volume loss. Multiple areas of hypoattenuation in the subcortical and periventricular white matter are most consistent with chronic microangiopathic changes. The soft tissues and osseous structures are normal. Globes are aphakic. The sinuses and mastoid air cells are clear. CERVICAL SPINE: Bones are osteopenic. Segmentation anomaly is again seen at the C2-C3 level with developmental fusion of these vertebra. Vertebral body heights are normal. No fractures of the vertebral bodies or posterior elements. There is 2 mm of chronic atelectasis of C6 on C7, likely due to facet arthropathy. There is no malalignment. 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 Hardware is intact and appropriately positioned. Degenerative changes are present at the craniocervical and atlantoaxial articulations, though normal alignment is maintained. Intervertebral discs are narrowed at multiple levels with associated endplate and uncovertebral osteophytes, relatively mild. Severe left-sided facet arthropathy is evident in the cervical spine, most notably at C3-C4, C4-C5, C5-C6, and C6-C7. Posterior disc osteophyte complex at C5-C6 produces mild central canal narrowing. There is bilateral neural foraminal encroachment at C5-C6 due to uncovertebral and facet osteophytes. No significant paravertebral soft tissue swelling. Atherosclerotic calcifications are present in the carotid arteries. Emphysema is evident in the upper lobes. CT/CT cervical spine wo con IMPRESSION: 1. No acute intracranial pathology. 2. No acute fracture or malalignment in the cervical spine. 3. 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
--- NOTE | ~2020-08-31 | XR_ITS ---
EXAMINATION: XR SACRUM AND COCCYX CLINICAL INFORMATION: Fell. Pain in buttocks. COMPARISON: Pelvis and bilateral hips 08/31/2020 TECHNIQUE: 3 views of the sacrum and coccyx. FINDINGS: There is osteopenia. No displaced fracture. There is degenerative spondylosis of lower lumbar spine. Heavy vascular calcification of aorta and iliac arteries without evidence for aneurysm. Orthopedic screw present in left hip. Large volume of stool in the colon. XR/XR sacrum coccyx min 2V IMPRESSION: Osteopenia. No displaced fracture of sacrum or coccyx. If pain persists CT may be helpful for further evaluation.
--- NOTE | ~2020-08-31 | XR_ITS ---
EXAMINATION: XR CHEST CLINICAL INFORMATION: Fever COMPARISON: 08/18/2018 TECHNIQUE: Frontal view of the chest was obtained. FINDINGS: An implantable loop recorder is present over the left hilar region. ACDF hardware is present at the cervical spine. Lungs are hyperexpanded. No consolidation, pneumothorax, or pleural effusion. Linear interstitial opacities at the lung bases may correspond to mild fibrotic recurrent senescent changes and are unchanged as compared to prior studies. No pulmonary edema. Cardiac and mediastinal contours are normal and unchanged calcific apical sclerosis in the thoracic aorta. Pulmonary vasculature is normal. Bones are osteopenic. Degenerative spondylosis is present in the thoracic spine. XR/XR chest 1V IMPRESSION: No evidence of pneumonia. Hyperexpanded lungs.
--- NOTE | ~2020-08-31 | US_ITS ---
EXAMINATION: US VENOUS ULTRASOUND WITH DOPPLER LOWER EXTREMITY, BILATERAL CLINICAL INFORMATION: Elevated d-dimer. COMPARISON: None TECHNIQUE: Ultrasound of the deep veins is performed from the hip to the calf with compression sonography and color and pulse Doppler assessment. Spectral analysis with color-flow imaging is performed. FINDINGS: RIGHT: There is normal venous compression and respiratory variation and augmented flow. The visualized common femoral vein, superficial femoral vein, profunda femoral vein, popliteal vein, and the trifurcation region shows no evidence of deep venous thrombosis. No popliteal cyst. The subcutaneous soft tissues are unremarkable. LEFT: There is normal venous compression and respiratory variation and augmented flow. The visualized common femoral vein, superficial femoral vein, profunda femoral vein, popliteal vein, and the trifurcation region shows no evidence of deep venous thrombosis. No popliteal cyst. The subcutaneous soft tissues are unremarkable. If the patient's symptoms persist, followup ultrasound in 5 days 7 days might be of value to exclude proximal propagation from a non-visualized calf vein. US/US venous duplex LE BI IMPRESSION: No evidence of deep venous thrombosis in the visualized veins of the bilateral lower extremities.
--- NOTE | ~2020-08-31 | CT_ITS ---
EXAMINATION: CT PELVIS WITHOUT CONTRAST CLINICAL INFORMATION: Hip pain. More on the right. COMPARISON: Radiographs dated 08/31/2020 TECHNIQUE: Helical scanning was performed with submillimeter collimation through the pelvis. Sagittal and coronal multiplanar 2-D reconstructions were obtained. This CT examination was performed using dose optimization techniques as appropriate, variously including the following: *Automated exposure control *Adjustment of mA and/or kV according to patient size (this includes techniques or standardized protocols for targeted exams where dose is matched to indication/reason for exam; i.e. extremities or head) *Use of iterative reconstruction technique DLP: 637 mGy-cm FINDINGS: Bones are osteopenic. There is a nondisplaced sagittally oriented fracture through the right sacroiliac extension into the anterior cortex, likely also involving the right SI joint. A subtle nondisplaced fractures also present at the anterior cortex of the left sacroiliac without significant displacement. A transverse fracture through the anterior cortex of the sacrum is present at the S3 level with significant cortical buckling. These fracture lines extend into the sacral foramina at the S2 and S3 levels without significant displacement of surrounding bone. No appreciable nerve root impingement on these images. No additional pelvic fractures are identified. Right proximal femur appears intact. 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 There is a healed trochanteric fracture of the left proximal femur status post ORIF. The superior margin of the fixation screw extends into the anterosuperior aspect of the left hip joint and abuts the adjacent acetabular roof. There is degenerative disc disease and facet arthropathy in the lower lumbar spine at L5-S1. Calcific atherosclerosis is present in the abdominal aorta and iliac arteries. There is diverticulosis in the colon. Cholelithiasis is apparent without evidence of acute cholecystitis on these images. Small fat-containing right inguinal hernia. No large fluid collections or hematomas are identified in the pelvis. CT/CT pelvis wo con IMPRESSION: Acute H shaped sacral fracture with sagittal components to the bilateral sacral ala connected by a transverse fracture through the anterior cortex of the of S3 body. There is minimal displacement. No additional pelvic fractures are identified.
--- NOTE | ~2020-08-31 | IR_ITS ---
EXAMINATION: FL GUIDED SACROPLASTY CLINICAL INFORMATION: Sacral fracture. COMPARISON: CT pelvis 09/01/2020 TECHNIQUE: Following explaining fluoroscopy-guided bilateral sacroplasty procedure, benefits and risk, a written consent was obtained. Patient was placed prone on fluoroscopy table, and low back area overlying the sacrum was cleaned and draped in the usual sterile manner. The right skin overlying the sacrum was localized and infiltrated with 1% lidocaine. A 22-gauge needle was inserted to the periosteum and 0.25% Marcaine was injected. Through a small skin incision, a 10-gauge Kyphon needle was inserted obliquely from caudal to cranial position from S2 through S1 vertebrae. A second needle was inserted in similar fashion from S2 and S1 vertebrae in the left sacrum under AP and lateral fluoroscopy monitoring. Freshly prepared polymethylmethacrylate was then injected through the right needle followed by left needle under continuous fluoroscopy monitoring. After achieving an adequate amount of cement, both needles were withdrawn and complete hemostasis achieved at puncture site. Patient tolerated the procedure extremely well. IV conscious sedation was performed by anesthesia department. FINDINGS: There are bilateral sacral fractures seen on the preliminary x-ray. Bilateral pedicular S1 and S2 kyphoplasty performed without immediate extravasation. The SI joints are symmetrical and normal. Mild degenerative disc changes L5-S1 disc level are noted. There is a left hip nail in place. IR/IR kyphoplasty each add IMPRESSION: Successful fluoroscopy-guided bipedicular approach S1 and S2 sacroplasty performed. Fluoroscopy time: 12.7 minutes. Dose area product: 5065 cGy-cm.
--- NOTE | ~2020-08-31 | CT_ITS ---
EXAMINATION: CT SACRUM CLINICAL INFORMATION: Status post sacroplasty. COMPARISON: CT pelvis 09/01/2020. TECHNIQUE: 2 mm thin axial and reformatted 2 mm thin sagittal and coronal images of sacrum were obtained. DLP: 323 mGy-cm FINDINGS: There is an adequate amount of cement occupying bilateral sacroiliacs essentially S1 and S2 vertebra. There is no extravasation of cement into the presacral or postsacral space. The neural foramina are widely patent. There are fractures seen involving the S1, S2 and S2-S3 vertebral junction. The sacral spinal canal is patent. SI joints are symmetrical and normal. Incidental finding of a left intramedullary femoral jemma and hip nail for an old healed fracture. There is extreme diffuse osteopenia. There is moderate distention of the urinary bladder. Moderate scattered stool is seen in the colon. CT/CT sacrum IMPRESSION: Adequate amount of cement occupying S1 and S2 vertebra with no cement extravasation seen into the neural foramina or pre or postsacral space. The SI joints are symmetrical.
--- NOTE | ~2020-08-31 | CT_ITS ---
EXAMINATION: CT ANGIOGRAM OF THE CHEST WITH AND WITHOUT CONTRAST (CT PULMONARY ANGIOGRAM FOR PE) CT thoracic spine without CONTRAST CLINICAL INFORMATION: Reason for Exam Chest pain, shortness of breath, rule out PE COMPARISON: No pertinent prior studies are available for comparison. TECHNIQUE: Prior to contrast administration, noncontrast localization images were obtained. Images were obtained through the thoracic spine. Subsequently, multidetector volumetric imaging was performed from the thoracic inlet to the pubic symphysis through the chest following the administration of 80 mL Omnipaque 350 intravenous contrast. No contrast reaction reported Sagittal, coronal, and MIP oblique sagittal (through the chest only) reformatted images were obtained on the CT workstation, uploaded to PACS, and reviewed. Total exam dose-length product: 449 mGy-cm This CT examination was performed using dose optimization techniques as appropriate, variously including the following: *Automated exposure control *Adjustment of mA and/or kV according to patient size (this includes techniques or standardized protocols for targeted exams where dose is matched to indication/reason for exam; i.e. extremities or head) *Use of iterative reconstruction technique FINDINGS: Chest: QUALITY OF STUDY/CONTRAST BOLUS: Satisfactory. Assessment of the distal segmental branches of the lung bases is limited by respiratory motion. PULMONARY ARTERIES: No central or segmental pulmonary emboli. THORACIC AORTA: No aneurysm or dissection. Calcific atherosclerosis and fibrofatty atherosclerosis are noted in the thoracic aorta. LUNG: No focal consolidation, nodules or masses. Moderate to severe pulmonary emphysema. Central airways are clear. Assessment of the bases is somewhat limited by respiratory motion. PLEURA: No pleural effusion or pneumothorax. MEDIASTINUM: Normal heart size. No pericardial effusion. No hilar or mediastinal lymphadenopathy. No evidence of septal bowing or right heart strain. Calcific atherosclerosis is present coronary arteries. CHEST WALL/AXILLA: No axillary or internal mammary lymphadenopathy. ABDOMEN/PELVIS: No reflux of contrast into the hepatic veins. Diverticulosis is present in the imaged portion of the descending colon. OSSEOUS STRUCTURES: No acute or suspicious osseous abnormality. Osteoarthritic is present in the sternoclavicular and glenohumeral joints. THORACIC SPINE: There are 13 rib-bearing vertebral bodies. Bones are osteopenic. No acute fractures are identified. Vertebral body heights appear relatively well-preserved. There is mild loss of vertebral body height at the inferior endplate of the T8 vertebral body which appears chronic in nature and is associated with a Schmorl's node. Posterior elements are intact. Bridging osteophytes throughout the lower thoracic spine are indicative of diffuse idiopathic skeletal hyperostosis (DISH). There is mild to moderate facet arthropathy in the upper thoracic spine, right side greater than left. Central canal appears patent. No appreciable central canal or neural foraminal stenoses. CT/CT angio chest PE protocol IMPRESSION: 1. No acute findings in the chest and thoracic spine. No evidence of pulmonary emboli. No appreciable thoracic vertebral body fractures. 2. Moderate to severe pulmonary emphysema. 3. Multilevel degenerative disc disease in the thoracic spine with diffuse idiopathic skeletal hyperostosis in the lower thoracic spine. VTE: negative
[2020-08-31 19:56] VITALS: BP 123/83; BP 132/91; PULSE 92; PULSE 98; RESP 22; TEMP 36.5; O2SAT 92; O2SAT 95; BMI 20.5
--- NOTE | 2020-08-31 20:22 | ED_ITS ---
HPI - Fall General Chief Complaint: Fall Stated Complaint: Lower Back pain Time Seen by Provider: 08/31/20 20:09 Source: patient and EMS Mode of arrival: EMS Limitations: no limitations History of Present Illness HPI Narrative: Patient comes emergency room complaining of pain in her lower back and hips. Patient states she was on her walker, slipped and fell backwards landing on her buttocks. Patient denies hitting her head, patient has no loss of consciousness. Patient complaining of severe pain in her lower back. Related Data Previous Rx's Medication Instructions Recorded acetaminophen 650 mg PO Q6H PRN #14 tab 01/06/20 phenytoin sodium extended 100 mg 300 mg PO DAILY 90 Days #270 cap 05/30/20 capsule naproxen 500 mg tablet 500 mg PO BID 30 Days #60 tab 08/30/20 prednisone 5 mg tablet 5 mg PO DAILY 90 Days #90 tab 08/30/20 Allergies Allergy/AdvReac Type Severity Reaction Status Date / Time No Known Allergies Allergy Verified 08/31/20 20:01 [No Known Allergies*] Review of Systems Review of Systems: Constitutional : No Weight loss, No Fever, No Chills, No Night Sweats, No Fatigue, No Malaise ENT/Mouth : No Hearing loss, No Ear Pain, No Nasal Congestion, No Sinus Pain, No Hoarseness, No sore throat, No Rhinorrhea, No Swallowing Difficulty Eyes: No Eye Pain, No Swelling, No Redness, No Foreign Body, No Discharge, No Vision Changes Cardiovascular : No Chest Pain, No SOB, No Dyspnea on Exertion, No Orthopnea, No Edema, No Palpitations Respiratory : No Cough, No Sputum, No Wheezing, No Smoke Exposure, No Dyspnea Gastrointestinal : No Nausea, No Vomiting, No Diarrhea, No Constipation, No a bdominal Pain, No Hematochezia, No Melena Genitourinary : no irregular bleeding, No Dysuria, No Urinary Frequency, No Hematuria, No Urinary Incontinence, No Urgency, No Flank Pain, No Urinary Flow Changes, No Hesitancy Musculoskeletal : Complaining of lower back pain, mild bilateral hip pain Skin : No Skin Lesions, No rash Neuro : No Weakness, No Numbness, No Paresthesias, No Loss of Consciousness, No Dizziness, No Headache Psych : No Anxiety/Panic, No Depression, No SI/HI/AH/VH, No Social Issues, Heme/Lymph: No Bruising, No Bleeding,No Lymphadenopathy Endocrine : No Polyuria, No Polydipsia, No Temperature Intolerance [facility] Past Medical History Medical History Arthritis Hx of fracture of hip Seizure disorder Smoker Surgical History History of neck surgery Family History Family History Sister Leukemia Social History Social History Household Members: None Housing: House Are you a primary rn progressive care to a significant other at home: No Do you presently have visiting nurse or other home services: No Alcohol intake: current Patient Tobacco Use Status: Current everyday Tobacco user Cigarettes Per Day: 10 e-Cigarette/Vaping Use: Never Used Second Hand Smoke Exposure: No Advance Directives: No Advance Directives Information Provided: No service: No Current occupational status: retired Physical Exam Vital Signs: Vital Signs: Last Vital Signs Temp 98.2 F 08/31/20 22:00 Pulse 79 08/31/20 22:00 Resp 16 08/31/20 22:00 BP 117/79 08/31/20 22:00 Pulse Ox 97 08/31/20 22:00 Body Mass Index 20.5 Appearance: Alert. Oriented X3. No acute distress. Eyes: Pupils equal, round and reactive to light. ENT: Pharynx normal. Neck: Normal inspection. Neck supple. No lymph nodes noted. No crepitus CVS: Normal heart rate and rhythm. Pulses normal. Normal S1 and S2 Respiratory: No respiratory distress. Breath sounds normal. No Wheezing. No rales Abdomen: Soft and nontender. No rigidity. No distention. Back: Very tender to palpation over the lower back, lumbar area Skin: Skin warm and dry. Normal skin color. Normal skin turgor. Extremities: No lower extremity edema. No lower extremity edema. No Lacerations. No Rash Neuro: Oriented X 3. No motor deficit. No sensory deficit. Moving all extermities. No slurred speech. Course Course Course Narrative: At this time, 00:20, I went to the patient's room to discuss her findings. Patient is very hot to touch. We checked a rectal temperature, patient does have a fever of 101.2. At this time, blood work for sepsis workup is beginning. 2:00 at this time, of infection yet. The only thing that is missing as a urinalysis. Patient is being treated empirically with ceftriaxone. Patient's urine resolved at 02:37. Patient does not have a UTI. Patient has fever of unknown origin. Patient continues having lumbar pain. If patient continues having significant back pain, she may need an MRI in the morning. I discussed the patient with our hospitalist Dr. Saldana, patient is being admitted for pain control and for fever of unknown origin. - Fall Lab Data Result diagrams: 09/01/20 00:52 09/01/20 00:52 Labs: Lab Results 08/31/20 08/31/20 08/31/20 Range/Units 20:22 21:21 21:21 WBC 13.7 H (4.8-10.8) X10*3/uL RBC 4.41 D (4.20-5.50) X10*6/uL Hgb 13.8 D (12.0-16.0) g/dl Hct 43.1 D (37-47) % MCV 97.7 (80-98) fL MCH 31.3 (27.0-33.0) pg MCHC 32.0 (31.0-35.0) g/dl RDW 13.2 (11.0-16.0) % Plt Count 255 (160-400) X10*3/uL MPV 8.7 L (9.4-12.3) fL Immature Gran % (Auto) 1.1 H (0.0-0.4) % Neut % (Auto) 86.3 H (45-73) % Lymph % (Auto) 8.7 L (20-40) % [place] % (Auto) 3.2 (2-11) % Eos % (Auto) 0.4 (0-4) % Baso % (Auto) 0.3 (0-2) % Lymph # (Auto) 1.2 (1.2-4.9) X10*3/uL [place] # (Auto) 0.4 (0.1-1.2) X10*3/uL Eos # (Auto) 0.1 (0.0-0.4) X10*3/uL Baso # (Auto) 0.0 (0.0-0.2) X10*3/uL Abs Immat Gran (auto) 0.15 H (0.00-0.03) X10*3/uL Absolute Neuts (auto) 11.8 H (2.0-8.3) X10*3/uL Absolute Nucleated RBC 0.000 (0.0-0.012) X10*3/uL Nucleated RBC % (auto) 0.0 (0.0-0.2) /100WBC PT 12.8 (10.8-13.0) SEC INR 1.1 (0.9-1.1) Sodium 137 (135-145) mmol/L Potassium 4.6 (3.3-5.1) mmol/L Chloride 100 (96-108) mmol/L Carbon Dioxide 27 (22-29) mmol/L Anion Gap 15 (12-20) BUN 15 (9-16) mg/dL Creatinine 0.60 (0.5-1.4) mg/dL Estim Creat Clear Calc 50.1 Estimated GFR > 60 Random Glucose 145 H (60-115) mg/dL Lactic Acid (0.5-2.0) mmol/L Calcium 8.7 D (8.4-10.2) mg/dL Total Bilirubin 0.6 (0.0-1.0) mg/dL Direct Bilirubin (0.0-0.5) mg/dL AST 38 H (5-31) U/L ALT 48 H (0-31) U/L Alkaline Phosphatase 223 H (39-117) U/L Total Protein 7.9 (6.5-8.0) g/dL Albumin 3.1 L (3.5-5.0) g/dL Urine Color Urine Appearance Urine pH (5.0-8.0) Ur Specific [place] (1.005-1.025) Urine Protein (NEG-TRACE) MG/DL Urine Glucose (UA) (NEG) MG/DL Urine Ketones (NEG) MG/DL Urine Blood (NEG) Urine Nitrite (NEG) Ur Leukocyte Esterase (NEG) Coronavirus (PCR) (Negative) Influenza Type A (PCR) (Negative) Influenza Type B (PCR) (Negative) RSV RNA Qual (PCR) (Negative) 09/01/20 09/01/20 09/01/20 Range/Units 00:52 00:52 00:52 WBC 12.5 H (4.8-10.8) X10*3/uL RBC 4.17 L (4.20-5.50) X10*6/uL Hgb 13.1 (12.0-16.0) g/dl Hct 40.6 (37-47) % MCV 97.4 (80-98) fL MCH 31.4 (27.0-33.0) pg MCHC 32.3 (31.0-35.0) g/dl RDW 13.2 (11.0-16.0) % Plt Count 231 (160-400) X10*3/uL MPV 8.5 L (9.4-12.3) fL Immature Gran % (Auto) 1.0 H (0.0-0.4) % Neut % (Auto) 85.8 H (45-73) % Lymph % (Auto) 7.6 L (20-40) % [place] % (Auto) 5.2 (2-11) % Eos % (Auto) 0.1 (0-4) % Baso % (Auto) 0.3 (0-2) % Lymph # (Auto) 1.0 L (1.2-4.9) X10*3/uL [place] # (Auto) 0.7 (0.1-1.2) X10*3/uL Eos # (Auto) 0.0 (0.0-0.4) X10*3/uL Baso # (Auto) 0.0 (0.0-0.2) X10*3/uL Abs Immat Gran (auto) 0.12 H (0.00-0.03) X10*3/uL Absolute Neuts (auto) 10.7 H (2.0-8.3) X10*3/uL Absolute Nucleated RBC 0.000 (0.0-0.012) X10*3/uL Nucleated RBC % (auto) 0.0 (0.0-0.2) /100WBC PT (10.8-13.0) SEC INR (0.9-1.1) Sodium 138 (135-145) mmol/L Potassium 4.3 (3.3-5.1) mmol/L Chloride 101 (96-108) mmol/L Carbon Dioxide 25 (22-29) mmol/L Anion Gap 16 (12-20) BUN 14 (9-16) mg/dL Creatinine 0.62 (0.5-1.4) mg/dL Estim Creat Clear Calc 48.5 Estimated GFR > 60 Random Glucose 149 H (60-115) mg/dL Lactic Acid 1.8 (0.5-2.0) mmol/L Calcium 8.5 (8.4-10.2) mg/dL Total Bilirubin 0.6 (0.0-1.0) mg/dL Direct Bilirubin 0.4 (0.0-0.5) mg/dL AST 40 H (5-31) U/L ALT 50 H (0-31) U/L Alkaline Phosphatase 224 H (39-117) U/L Total Protein 7.8 (6.5-8.0) g/dL Albumin 3.1 L (3.5-5.0) g/dL Urine Color Urine Appearance Urine pH (5.0-8.0) Ur Specific [place] (1.005-1.025) Urine Protein (NEG-TRACE) MG/DL Urine Glucose (UA) (NEG) MG/DL Urine Ketones (NEG) MG/DL Urine Blood (NEG) Urine Nitrite (NEG) Ur Leukocyte Esterase (NEG) Coronavirus (PCR) (Negative) Influenza Type A (PCR) (Negative) Influenza Type B (PCR) (Negative) RSV RNA Qual (PCR) (Negative) 09/01/20 09/01/20 Range/Units 02:08 02:17 WBC (4.8-10.8) X10*3/uL RBC (4.20-5.50) X10*6/uL Hgb (12.0-16.0) g/dl Hct (37-47) % MCV (80-98) fL MCH (27.0-33.0) pg MCHC (31.0-35.0) g/dl RDW (11.0-16.0) % Plt Count (160-400) X10*3/uL MPV (9.4-12.3) fL Immature Gran % (Auto) (0.0-0.4) % Neut % (Auto) (45-73) % Lymph % (Auto) (20-40) % [place] % (Auto) (2-11) % Eos % (Auto) (0-4) % Baso % (Auto) (0-2) % Lymph # (Auto) (1.2-4.9) X10*3/uL [place] # (Auto) (0.1-1.2) X10*3/uL Eos # (Auto) (0.0-0.4) X10*3/uL Baso # (Auto) (0.0-0.2) X10*3/uL Abs Immat Gran (auto) (0.00-0.03) X10*3/uL Absolute Neuts (auto) (2.0-8.3) X10*3/uL Absolute Nucleated RBC (0.0-0.012) X10*3/uL Nucleated RBC % (auto) (0.0-0.2) /100WBC PT (10.8-13.0) SEC INR (0.9-1.1) Sodium (135-145) mmol/L Potassium (3.3-5.1) mmol/L Chloride (96-108) mmol/L Carbon Dioxide (22-29) mmol/L Anion Gap (12-20) BUN (9-16) mg/dL Creatinine (0.5-1.4) mg/dL Estim Creat Clear Calc Estimated GFR Random Glucose (60-115) mg/dL Lactic Acid (0.5-2.0) mmol/L Calcium (8.4-10.2) mg/dL Total Bilirubin (0.0-1.0) mg/dL Direct Bilirubin (0.0-0.5) mg/dL AST (5-31) U/L ALT (0-31) U/L Alkaline Phosphatase (39-117) U/L Total Protein (6.5-8.0) g/dL Albumin (3.5-5.0) g/dL Urine Color YELLOW Urine Appearance CLEAR Urine pH 6.0 (5.0-8.0) Ur Specific [place] 1.020 (1.005-1.025) Urine Protein TRACE (NEG-TRACE) MG/DL Urine Glucose (UA) NEG (NEG) MG/DL Urine Ketones 15 (NEG) MG/DL Urine Blood NEG (NEG) Urine Nitrite NEG (NEG) Ur Leukocyte Esterase NEG (NEG) Coronavirus (PCR) NEGATIVE (Negative) Influenza Type A (PCR) NEGATIVE (Negative) Influenza Type B (PCR) NEGATIVE (Negative) RSV RNA Qual (PCR) NEGATIVE (Negative) Imaging Data Chest x-ray: Radiologist's impression: FINDINGS: An implantable loop recorder is present over the left hilar region. ACDF hardware is present at the cervical spine. Lungs are hyperexpanded. No consolidation, pneumothorax, or pleural effusion. Linear interstitial opacities at the lung bases may correspond to mild fibrotic recurrent senescent changes and are unchanged as compared to prior studies. No pulmonary edema. Cardiac and mediastinal contours are normal and unchanged calcific apical sclerosis in the thoracic aorta. Pulmonary vasculature is normal. Bones are osteopenic. Degenerative spondylosis is present in the thoracic spine. XR/XR chest 1V IMPRESSION: No evidence of pneumonia. Hyperexpanded lungs. Lumbar spine CT: Radiologist's impression: FINDINGS: There is osteopenia. Lumbar vertebrae have normal height and normal alignment. Slight depression of superior endplate of T12 without fracture line. There is narrowed L5-S1 with vertebral endplate spurs. Minimal degenerative lipping at the anterior endplates of the lumbar vertebrae. There is multilevel degenerative facet joint arthrosis of the mid and lower lumbar spine disc levels. There is heavy vascular calcification of the aorta without aneurysm. Calcified gallstone within the gallbladder. Kidneys are unremarkable. Large volume of stool in colon. Diverticulosis of the sigmoid colon without evidence of diverticulitis. The bladder is unremarkable. Spinal levels: T12-L1: Disc height is normal. No focal disc protrusion or central canal stenosis. Neural foramina open. Facet joints are normal. L1-L2: Lumbar disc height is normal. No focal disc protrusion. No central canal stenosis. Neural foramina are open. Facet joints are normal. L2-L3: Lumbar disc height is normal. No focal disc protrusion. Moderate central canal stenosis due to ligamentum hypertrophy and degenerative change of facet joints. Neural foramina are open. L3-L4: Lumbar disc height is normal. No focal disc protrusion. Severe central canal stenosis. This is due to ligamentum flavum hypertrophy and marked degenerative change of the facet joints. Mild narrowing of the neural foramina bilateral. L4-L5: Lumbar disc height is normal. No focal disc protrusion. There is severe central canal stenosis due to ligamentum flavum hypertrophy and degenerative change of facet joints. Neural foramina are mildly narrowed bilateral L5-S1: Narrowed disc height. No focal disc protrusion. No central canal stenosis. Neural foramina are mildly narrowed bilateral degenerative changes of the facet joint CT/CT lumbar spine wo con IMPRESSION: 1. No focal disc protrusion. 2. 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 Mild narrowing of neural foramina bilaterally L3-L4 and L4-L5. Coccyx x-ray: Radiologist's impression: FINDINGS: There is osteopenia. No displaced fracture. There is degenerative spondylosis of lower lumbar spine. Heavy vascular calcification of aorta and iliac arteries without evidence for aneurysm. Orthopedic screw present in left hip. Large volume of stool in the colon. XR/XR sacrum coccyx min 2V IMPRESSION: Osteopenia. No displaced fracture of sacrum or coccyx. If pain persists CT may be helpful for further evaluation. Hip x-rays: Radiologist's impression: FINDINGS: There is osteopenia. No acute displaced fracture of pelvis or hips is an old fracture of the left femur with intramedullary jemma and compression screw transfixing fracture. There is degenerative joint narrowing of the hips bilateral. There are heavy vascular calcification of the aorta and iliac arteries. Large volume of stool in colon. XR/XR hips YADIRA min 3V IMPRESSION: 1. Osteopenia. 2. No displaced fracture of pelvis or hips. If the pain persists consider CT for follow-up. Discharge Plan Discharge Clinical Impression: Fall, Lower back pain, Fever Patient Disposition: Admitted As Inpatient Prescriptions: No Action acetaminophen 325 mg Tablet 650 mg PO Q6H PRN (Reason: Pain, Mild (Pain Scale 1-3)) Qty: 14 RF: 0 phenytoin sodium extended [Dilantin Extended] 100 mg capsule 300 mg PO DAILY 90 Days Qty: 270 RF: 1 naproxen 500 mg tablet 500 mg PO BID 30 Days Qty: 60 RF: 2 prednisone 5 mg tablet 5 mg PO DAILY 90 Days Qty: 90 RF: 1
[2020-08-31 20:27] LABS: MANUAL DIFF FLAG NO
[2020-08-31] MEDS: Morphine Sulfate 2 MG/ML CARTRIDGE 1 MG IVPUSH (20:29)
[2020-08-31 20:30] LABS: Basophils Percent Auto 0.3 % (0-2); Eosinophils Absolute Auto 0.1 X10*3/uL (0.0-0.4); Eosinophils Percent Auto 0.4 % (0-4); Hematocrit 43.1 % (37-47); Hemoglobin 13.8 g/dl (12.0-16.0); Imm Gran Abs Auto 0.15 X10*3/uL (0.00-0.03); Imm Gran Pct Auto 1.1 % (0.0-0.4); Lymphocytes Absolute Auto 1.2 X10*3/uL (1.2-4.9); Lymphocytes Percent Auto 8.7 % (20-40); Mean Corpuscular Hemoglobin 31.3 pg (27.0-33.0); Mean Corpuscular Volume 97.7 fL (80-98); Mean Platelet Volume 8.7 fL (9.4-12.3); Monocytes Absolute Auto 0.4 X10*3/uL (0.1-1.2); Monocytes Percent Auto 3.2 % (2-11); Neutrophils Absolute Auto 11.8 X10*3/uL (2.0-8.3); Neutrophils Percent Auto 86.3 % (45-73); Platelet Count 255 X10*3/uL (160-400); Red Blood Count 4.41 X10*6/uL (4.20-5.50); Red Cell Distribution Width 13.2 % (11.0-16.0); White Blood Count 13.7 X10*3/uL (4.8-10.8)
--- NOTE | 2020-08-31 20:51 | PC.NURSE ---
PT TO ROOM, CHG INTO GOWN AND MD AT BEDSIDE. HL PLACED TO RAC, LABS DRAWN TO LAB. PT MEDICATED FOR PAIN 10/10 TO LEFT SACRAL AREA. PT TO CT IN STRETCHER. WILL CONTINUE TO MONITOR PT.
[2020-08-31 21:34] LABS: INTERNATIONAL NORM RATIO 1.1 (0.9-1.1); Prothrombin Time 12.8 SEC (10.8-13.0)
[2020-08-31 21:51] LABS: Alanine Aminotransferase 48 U/L (0-31); Albumin Level 3.1 g/dL (3.5-5.0); Alkaline Phosphatase 223 U/L (39-117); Anion Gap 15 (12-20); Aspartate Amino Transferase 38 U/L (5-31); Bilirubin Total 0.6 mg/dL (0.0-1.0); Blood Urea Nitrogen 15 mg/dL (9-16); Calcium 8.7 mg/dL (8.4-10.2); Carbon Dioxide 27 mmol/L (22-29); Chloride 100 mmol/L (96-108); Creatinine Clr Calc Pharmacy 50.1; Estimated Glomerular Filt Rate > 60; Glucose Random 145 mg/dL (60-115); Potassium 4.6 mmol/L (3.3-5.1); Sodium 137 mmol/L (135-145); Total Protein 7.9 g/dL (6.5-8.0)
[2020-08-31 22:00] VITALS: BP 117/79; PULSE 79; RESP 16; TEMP 36.8; O2SAT 97
[2020-08-31] MEDS: Morphine Sulfate 2 MG/ML CARTRIDGE IVPUSH (22:57)
--- NOTE | 2020-08-31 23:16 | PC.NURSE ---
pt returns from CT in stretcher. Pt was medicated for pain before CT. will continue to monitor pt.
[2020-09-01] VITALS (10 sets, daily range): BP systolic 114–145; BP diastolic 64–79; PULSE 80–95; RESP 15–20; TEMP 36.4–38.4; O2SAT 91–97
--- NOTE | 2020-09-01 00:39 | PC.NURSE ---
X-RAY IN ROOM FOR CXR. MD IN ROOM FOR EVALUATION OF SACRAL AREA. RECTAL TEMP TAKEN 101.2 MD AWARE OF FEVER.
[2020-09-01] MEDS: 0.9 % Sodium Chloride 1,000 ML 999 ML IVCONT ×2 (01:00→02:00)
[2020-09-01 01:01] LABS: MANUAL DIFF FLAG NO
[2020-09-01 01:02] LABS: Basophils Percent Auto 0.3 % (0-2); Eosinophils Percent Auto 0.1 % (0-4); Hematocrit 40.6 % (37-47); Hemoglobin 13.1 g/dl (12.0-16.0); Imm Gran Abs Auto 0.12 X10*3/uL (0.00-0.03); Lymphocytes Percent Auto 7.6 % (20-40); Mean Corpuscular HGB Conc 32.3 g/dl (31.0-35.0); Mean Corpuscular Hemoglobin 31.4 pg (27.0-33.0); Mean Corpuscular Volume 97.4 fL (80-98); Mean Platelet Volume 8.5 fL (9.4-12.3); Monocytes Absolute Auto 0.7 X10*3/uL (0.1-1.2); Monocytes Percent Auto 5.2 % (2-11); Neutrophils Absolute Auto 10.7 X10*3/uL (2.0-8.3); Neutrophils Percent Auto 85.8 % (45-73); Platelet Count 231 X10*3/uL (160-400); Red Blood Count 4.17 X10*6/uL (4.20-5.50); Red Cell Distribution Width 13.2 % (11.0-16.0); White Blood Count 12.5 X10*3/uL (4.8-10.8)
--- NOTE | 2020-09-01 01:15 | PC.NURSE ---
PT DENIES ANY COMPLAINTS, PT STATES IM ONLY IN PAIN WHILE MOVING IN STRETCHER MD AWARE.
[2020-09-01 01:27] LABS: Lactic Acid 1.8 mmol/L (0.5-2.0)
[2020-09-01 01:31] LABS: Alanine Aminotransferase 50 U/L (0-31); Albumin Level 3.1 g/dL (3.5-5.0); Alkaline Phosphatase 224 U/L (39-117); Anion Gap 16 (12-20); Aspartate Amino Transferase 40 U/L (5-31); Bilirubin Direct 0.4 mg/dL (0.0-0.5); Bilirubin Total 0.6 mg/dL (0.0-1.0); Blood Urea Nitrogen 14 mg/dL (9-16); Calcium 8.5 mg/dL (8.4-10.2); Carbon Dioxide 25 mmol/L (22-29); Chloride 101 mmol/L (96-108); Creatinine Clr Calc Pharmacy 48.5; Estimated Glomerular Filt Rate > 60; Glucose Random 149 mg/dL (60-115); Potassium 4.3 mmol/L (3.3-5.1); Sodium 138 mmol/L (135-145); Total Protein 7.8 g/dL (6.5-8.0)
[2020-09-01 02:38] LABS: Appearance Urine CLEAR; Color Urine YELLOW; Glucose Urine UA NEG (NEG); Leukocyte Esterase Urine NEG (NEG); Nitrite Urine NEG (NEG); UACC Culture Trigger NO; Urine Blood NEG (NEG); Urine Ketones 15 MG/DL (NEG); Urine Protein TRACE MG/DL (NEG-TRACE)
[2020-09-01 02:51] LABS: Influenza A PCR NEGATIVE (Negative); Influenza B PCR NEGATIVE (Negative); Resp Syncy Virus RNA Qual PCR NEGATIVE (Negative); SARS COV2 PCR INHOUSE NEGATIVE (Negative)
--- NOTE | 2020-09-01 02:55 | PC.NURSE ---
PT IS ROLLED CAREFULLY TO CLEAN UP PT AFTER URINATING IN STRETCHER. PT IS STRAIGHT CATH FOR URINE SAMPLE SENT TO LAB FOR EVAL. JORGE APPLIED TO PT FOR FURTHER URINATION. NS X 2 UP AND RUNNING INTO SITE, INTACT. PT HAVING PAIN WHILE MOVING IN STRETCHER. VS OBTAINED AND PT DENIES ANY COMPLAINTS. FAMILY CALLED FOR UPDATE WITH PT'S PERMISSION. WILL CONTINUE TO MONITOR PT.
[2020-09-01] MEDS: Acetaminophen 325 MG TABLET 650 MG PO (03:57)
[2020-09-01] MEDS: Morphine Sulfate 2 MG/ML CARTRIDGE IVPUSH (03:57)
[2020-09-01] MEDS: cefTRIAXone sodium 1 GM in 0.9 % Sodium Chloride 50 ML IV (03:57)
[2020-09-01] MEDS: Heparin Sodium,Porcine 5,000 UNIT/ML VIAL 5000 UNIT SUBCUT ×2 (04:00→15:36)
--- NOTE | 2020-09-01 04:02 | P.HPHOSP_ITS ---
History of Present Illness Date of Service: 09/01/20 Chief Complaint: Fall 84-year-old female with a past medical history of seizures, arthritis, on chronic prednisone, history of neck surgery presented to the hospital with a chief complaint of fall. Patient reports that she walks with the help of a walker at home. This evening she was walking with a walker and sterilely she slipped, tripped and fell backwards landing on her buttocks. Denies any head strike or loss of consciousness. Denies any seizure-like activity. Patient reported that after the fall she had significant pain in her bilateral hips limiting her mobility. Subsequently came to the ER for further evaluation. Denies any numbness tingling in the legs. Complains of more so in the bilateral buttocks. Denies any low back pain. Patient reports that she is chronically on prednisone and phenytoin at home. Denies any difficulty swallowing. Patient denies any chest pain palpitations lightheadedness or dizziness before or after the episode. Denies any fever chills cough or urinary symptoms. Denies any GI symptoms. Review of all other systems is negative except mentioned above ER course: Per ER team patient noted to have bilateral hip pain. Hip x-rays, lumbar signs PT showed no acute fracture; lumbar spine CT showed chronic degene rative spine changes; nonfocal examination; urinalysis negative, chest x-ray showed no evidence of pneumonia. But patient was noted to be hard and rectal temperature was noted to be 101.2 F; no clear source of infection. Patient had mild leukocytosis. Admitted for observation. Blood cultures have been sent. Ceftriaxone. Patient also received morphine for pain in the buttocks. [facility] Medical History Arthritis Hx of fracture of hip Seizure disorder Smoker Family History Sister Leukemia Surgical History History of neck surgery Social History Household Members: None Housing: House Are you a primary healthcare sales representative to a significant other at home: No Do you presently have visiting nurse or other home services: No Alcohol intake: current Patient Tobacco Use Status: Current everyday Tobacco user Tobacco use type: Cigarette Cigarettes Per Day: 10 Years Smoked: 50 Smoked in Last 30 Days: Yes e-Cigarette/Vaping Use: Never Used Patient Interested in Nicotine Replacement: No Patient Given Instructions on How to Stop Smoking: No (pt refused) Second Hand Smoke Exposure: No Use of substances other than those prescribed or required for medical reasons: No Currently Displaying Signs/Symptoms of Drug Intoxication Withdrawal: No Have you been hit, kicked, punched, or otherwise hurt by someone within the past year? If so, by whom?: No Do you feel safe in your current relationship?: No Is there a partner from a previous relationship who is making you feel unsafe now?: No Are you made to feel afraid or neglected: No Advance Directives: No Advance Directives Information Provided: No Do you have thoughts of harming others: None Do you have a plan to hurt others: No Plan Recently lost weight without trying: No Patient : No : No Poor oral hygiene: No service: No Current occupational status: retired [employer] Allergies Allergy/AdvReac Type Severity Reaction Status Date / Time No Known Allergies Allergy Verified 09/02/20 09:04 [No Known Allergies*] Active Medications: Current Medications Generic Name Dose Route Start Last Admin Trade Name Freq PRN Reason Stop Dose Admin Acetaminophen 650 mg 09/01/20 03:56 Acetaminophen 325 Mg Tablet PO Q6H PRN Pain, Mild (Pain Scale 1-3) Heparin Sodium (Porcine) 5,000 unit 09/01/20 04:00 Heparin Sodium,Porcine 5,000 Unit/Ml Vial SUBCUT Q12H [facility] Sodium Chloride 1,000 mls @ 50 mls/hr 09/01/20 04:00 Ns IVCONT .Q20H [facility] Oxycodone HCl 5 mg 09/01/20 03:56 Oxycodone Hcl Immed Release 5 Mg Tablet PO Q6H PRN Pain, Severe (Pain Scale 7-10) Phenytoin Sodium 300 mg 09/01/20 09:00 Phenytoin Sodium Extended 100 Mg Capsule PO DAILY [facility] Prednisone 5 mg 09/01/20 09:00 Prednisone 5 Mg Tablet PO DAILY [facility] Senna 17.2 mg 09/01/20 03:56 Sennosides 8.6 Mg Tablet PO BEDTIME PRN Constipation Sodium Chloride 3 ml 09/01/20 08:00 0.9 % Sodium Chloride Flush 3 Ml Syringe IVFLUSH QSHIFT [facility] Physical Exam Vital Signs and Narrative: Vital Signs: Last Vital Signs Temp 97.8 F 09/01/20 02:00 Pulse 84 09/01/20 03:05 Resp 16 09/01/20 02:00 BP 117/70 09/01/20 03:05 Pulse Ox 97 09/01/20 03:05 Body Mass Index 20.5 Gen: Appears be in no acute distress a HEENT: NCAT, Moist mucosa.; neck is supple Pulmonary: Vesicular breath sounds, fair air entry CVS: Normal S1-S2 Abdomen: BS+, Soft, Nontender Extremities: Warm well perfused; patient has significant pain in her bilateral buttocks more so on the right side. Range of motion on the lower extremities is limited secondary to the pain. Patient able to move bilateral lower extremities equally. Neuro: Alert and awake. Grossly nonfocal; Results Labs CBC and Chem 7: 09/03/20 05:53 09/03/20 05:53 Labs: Laboratory Results - last 24 hr 08/31/20 08/31/20 08/31/20 20:22 21:21 21:21 MCV 97.7 MCH 31.3 MCHC 32.0 RDW 13.2 Plt Count 255 MPV 8.7 L Immature Gran % (Auto) 1.1 H Neut % (Auto) 86.3 H Lymph % (Auto) 8.7 L [place] % (Auto) 3.2 Eos % (Auto) 0.4 Baso % (Auto) 0.3 Lymph # (Auto) 1.2 [place] # (Auto) 0.4 Eos # (Auto) 0.1 Baso # (Auto) 0.0 Abs Immat Gran (auto) 0.15 H Absolute Neuts (auto) 11.8 H Absolute Nucleated RBC 0.000 Nucleated RBC % (auto) 0.0 PT 12.8 INR 1.1 Anion Gap 15 Estim Creat Clear Calc 50.1 Estimated GFR > 60 Random Glucose 145 H Lactic Acid Calcium 8.7 D Total Bilirubin 0.6 Direct Bilirubin AST 38 H ALT 48 H Alkaline Phosphatase 223 H Total Protein 7.9 Albumin 3.1 L Urine Color Urine Appearance Urine pH Ur Specific [place] Urine Protein Urine Glucose (UA) Urine Ketones Urine Blood Urine Nitrite Ur Leukocyte Esterase Coronavirus (PCR) Influenza Type A (PCR) Influenza Type B (PCR) RSV RNA Qual (PCR) 09/01/20 09/01/20 09/01/20 00:52 00:52 00:52 MCV 97.4 MCH 31.4 MCHC 32.3 RDW 13.2 Plt Count 231 MPV 8.5 L Immature Gran % (Auto) 1.0 H Neut % (Auto) 85.8 H Lymph % (Auto) 7.6 L [place] % (Auto) 5.2 Eos % (Auto) 0.1 Baso % (Auto) 0.3 Lymph # (Auto) 1.0 L [place] # (Auto) 0.7 Eos # (Auto) 0.0 Baso # (Auto) 0.0 Abs Immat Gran (auto) 0.12 H Absolute Neuts (auto) 10.7 H Absolute Nucleated RBC 0.000 Nucleated RBC % (auto) 0.0 PT INR Anion Gap 16 Estim Creat Clear Calc 48.5 Estimated GFR > 60 Random Glucose 149 H Lactic Acid 1.8 Calcium 8.5 Total Bilirubin 0.6 Direct Bilirubin 0.4 AST 40 H ALT 50 H Alkaline Phosphatase 224 H Total Protein 7.8 Albumin 3.1 L Urine Color Urine Appearance Urine pH Ur Specific [place] Urine Protein Urine Glucose (UA) Urine Ketones Urine Blood Urine Nitrite Ur Leukocyte Esterase Coronavirus (PCR) Influenza Type A (PCR) Influenza Type B (PCR) RSV RNA Qual (PCR) 09/01/20 09/01/20 02:08 02:17 MCV MCH MCHC RDW Plt Count MPV Immature Gran % (Auto) Neut % (Auto) Lymph % (Auto) [place] % (Auto) Eos % (Auto) Baso % (Auto) Lymph # (Auto) [place] # (Auto) Eos # (Auto) Baso # (Auto) Abs Immat Gran (auto) Absolute Neuts (auto) Absolute Nucleated RBC Nucleated RBC % (auto) PT INR Anion Gap Estim Creat Clear Calc Estimated GFR Random Glucose Lactic Acid Calcium Total Bilirubin Direct Bilirubin AST ALT Alkaline Phosphatase Total Protein Albumin Urine Color YELLOW Urine Appearance CLEAR Urine pH 6.0 Ur Specific [place] 1.020 Urine Protein TRACE Urine Glucose (UA) NEG Urine Ketones 15 Urine Blood NEG Urine Nitrite NEG Ur Leukocyte Esterase NEG Coronavirus (PCR) NEGATIVE Influenza Type A (PCR) NEGATIVE Influenza Type B (PCR) NEGATIVE RSV RNA Qual (PCR) NEGATIVE Imaging Radiologist's Impressions: Impressions Hip X-Ray 08/31/20 20:17 IMPRESSION: 1. Osteopenia. 2. No displaced fracture of pelvis or hips. If the pain persists consider CT for follow-up. Sacrum and Coccyx X-Ray 08/31/20 20:17 IMPRESSION: Osteopenia. No displaced fracture of sacrum or coccyx. If pain persists CT may be helpful for further evaluation. Lumbar Spine CT 08/31/20 22:44 IMPRESSION: 1. No focal disc protrusion. 2. 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 Mild narrowing of neural foramina bilaterally L3-L4 and L4-L5. Chest X-Ray 09/01/20 00:25 IMPRESSION: No evidence of pneumonia. Hyperexpanded lungs. Assessment and Plan (1) Fall: Status: Acute 84-year-old female with a past medical history of seizure disorder, arthritis on chronic prednisone presented to the hospital with a chief complaint of fall. Fall: Mechanical in nature. Denies any head strike or loss of consciousness. Denies any chest pain palpitations lightheadedness or dizziness. Exam nonfocal. Fall precautions. PT/OT. Will also obtain CT head and cervical spine CT (pt has hx C spine surgery). Bilateral buttocks pain: Exam limited secondary to the pain. Lumbar spine CT showed chronic degenerative changes. Will also obtain pelvic CT Fever: Urinalysis negative, chest x-ray negative, no obvious signs of cellulitis. Had mild leukocytosis-likely reactive secondary to the fall. Blood cultures have been sent. Given patient is chronically on prednisone-immunocompromise. Will empirically continue the patient on ceftriaxone. Patient reported that she had Stevie Stevie COVID-19 vaccine 3 days ago. Id consult. History of seizures: Patient currently denies any seizure-like activity. Patient reports her last seizure activity was like 2 years ago. Continue home phenytoin. History of arthritis: Continue home prednisone. Oxycodone P.r.n. for pain co ntrol DVT prophylaxis: Subcu heparin Code status: Full code Things to Follow-up for day team at 7:00 a.m.: CT head and CT T spine and C-spine pending Pelvic CT pending D-dimer pending PT/OT Case management for possible placement. Quality Stroke Does the patient have a stroke diagnosis?: No VTE Prior VTE?: No VTE Risk Level:: Medical - moderate - high VTE Device Contraindication: N/A - Device Ordered VTE Drug Contraindication: N/A - Med Ordered
--- NOTE | 2020-09-01 04:10 | PC.NURSE ---
HOSPITALIST IN ROOM FOR EVAL
--- NOTE | 2020-09-01 04:29 | PC.NURSE ---
PT MEDICATED PER [facility] FOR PAIN AND ANTIBIOTICS. WILL CONTINUE TO MONTIOR PT
[2020-09-01] MEDS: 0.9 % Sodium Chloride 1,000 ML 50 ML IVCONT ×2 (05:50→08:03)
--- NOTE | 2020-09-01 05:51 | PC.NURSE ---
FAMILY UPDATED. PT RETURNS TO CT IN STRETCHER. NO CHG IN PT'S CONDITION.
[2020-09-01] MEDS: iohexoL 350 MG/ML 100 ML INFUS..BTL 85 ML IV (06:28)
--- NOTE | 2020-09-01 06:31 | PC.NURSE ---
pt returns to room from CT.
--- NOTE | 2020-09-01 07:00 | PC.NURSE ---
REPORT TO FLOOR. PT AWAITING FOR TRANSFER TO ROOM.
[2020-09-01] MEDS: 0.9 % Sodium Chloride Flush 3 ML SYRINGE IVFLUSH ×3 (07:53→20:26)
[2020-09-01] MEDS: Phenytoin Sodium Extended 100 MG CAPSULE 300 MG PO (07:53)
[2020-09-01] MEDS: oxyCODONE HCl Immed Release 5 MG TABLET PO (07:53)
[2020-09-01] MEDS: predniSONE 5 MG TABLET PO (07:54)
[2020-09-01 08:49] LABS: MANUAL DIFF FLAG NO
[2020-09-01 08:54] LABS: Basophils Percent Auto 0.3 % (0-2); Eosinophils Absolute Auto 0.1 X10*3/uL (0.0-0.4); Eosinophils Percent Auto 0.8 % (0-4); Hematocrit 36.3 % (37-47); Hemoglobin 11.5 g/dl (12.0-16.0); Imm Gran Abs Auto 0.04 X10*3/uL (0.00-0.03); Imm Gran Pct Auto 0.5 % (0.0-0.4); Lymphocytes Absolute Auto 1.1 X10*3/uL (1.2-4.9); Lymphocytes Percent Auto 13.9 % (20-40); Mean Corpuscular HGB Conc 31.7 g/dl (31.0-35.0); Mean Corpuscular Hemoglobin 31.2 pg (27.0-33.0); Mean Corpuscular Volume 98.4 fL (80-98); Mean Platelet Volume 8.7 fL (9.4-12.3); Monocytes Absolute Auto 0.5 X10*3/uL (0.1-1.2); Monocytes Percent Auto 6.5 % (2-11); Neutrophils Absolute Auto 6.1 X10*3/uL (2.0-8.3); Platelet Count 188 X10*3/uL (160-400); Red Blood Count 3.69 X10*6/uL (4.20-5.50); Red Cell Distribution Width 13.2 % (11.0-16.0); White Blood Count 7.9 X10*3/uL (4.8-10.8)
[2020-09-01 09:37] LABS: Anion Gap 12 (12-20); Blood Urea Nitrogen 11 mg/dL (9-16); Calcium 7.8 mg/dL (8.4-10.2); Carbon Dioxide 26 mmol/L (22-29); Chloride 104 mmol/L (96-108); Creatinine Clr Calc Pharmacy 55.7; Estimated Glomerular Filt Rate > 60; Glucose Random 120 mg/dL (60-115); Potassium 3.7 mmol/L (3.3-5.1); Sodium 138 mmol/L (135-145)
--- NOTE | 2020-09-01 10:00 | MHC.CM.PN ---
met with pt who explin s that she lives alone and had no services prior to admission she does have family that assists her pt herself expects to go to a str when she is dc ready she has been at [facility] in the past additional referrals will be made to [facility] at pts request dc pllan str
--- NOTE | 2020-09-01 21:54 | W.PM.IDCN ---
History of Present Illness Data of Consult Service Date: 09/01/20 Requesting physician: Arie Paul Primary Care Provider: Unknown Physician HPI Reason for consult: fever of unknown origin She presnts to hospital with pain back 8/10 after fall last day.. She was found to have sacral fracture. She has no dysuria She has no fever or chills No one else is ill. Review of Systems Review of Systems: Yes all other systems are reviewed and are negative PMFSH Past Medical History Medical History Arthritis Hx of fracture of hip Seizure disorder Smoker Family History Family History Sister Leukemia Family history: reviewed and not pertinent Surgical History Surgical History History of neck surgery Social History Social History Household Members: None Housing: House Are you a primary manager critical care to a significant other at home: No Do you presently have visiting nurse or other home services: No Alcohol intake: current Patient Tobacco Use Status: Current everyday Tobacco user Tobacco use type: Cigarette Cigarettes Per Day: 10 Years Smoked: 50 Smoked in Last 30 Days: Yes e-Cigarette/Vaping Use: Never Used Patient Interested in Nicotine Replacement: No Patient Given Instructions on How to Stop Smoking: No (pt refused) Second Hand Smoke Exposure: No Use of substances other than those prescribed or required for medical reasons: No Currently Displaying Signs/Symptoms of Drug Intoxication Withdrawal: No Have you been hit, kicked, punched, or otherwise hurt by someone within the past year? If so, by whom?: No Do you feel safe in your current relationship?: No Is there a partner from a previous relationship who is making you feel unsafe now?: No Are you made to feel afraid or neglected: No Advance Directives: No Advance Directives Information Provided: No Do you have thoughts of harming others: None Do you have a plan to hurt others: No Plan Recently lost weight without trying: No Patient : No : No Poor oral hygiene: No service: No Current occupational status: retired Meds Allergies Allergy/AdvReac Type Severity Reaction Status Date / Time No Known Allergies Allergy Verified 08/31/20 20:01 [No Known Allergies*] Active Medications: Current Medications Generic Name Dose Route Start Last Admin Trade Name Freq PRN Reason Stop Dose Admin Acetaminophen 650 mg 09/01/20 03:56 Acetaminophen 325 Mg Tablet PO Q6H PRN Pain, Mild (Pain Scale 1-3) Heparin Sodium (Porcine) 5,000 unit 09/01/20 04:00 09/01/20 15:36 Heparin Sodium,Porcine 5,000 Unit/Ml Vial SUBCUT 5,000 unit Q12H [facility] Administration Oxycodone HCl 5 mg 09/01/20 03:56 09/01/20 07:53 Oxycodone Hcl Immed Release 5 Mg Tablet PO 5 mg Q6H PRN Administration Pain, Severe (Pain Scale 7-10) Phenytoin Sodium 300 mg 09/01/20 09:00 09/01/20 07:53 Phenytoin Sodium Extended 100 Mg Capsule PO 300 mg DAILY [facility] Administration Prednisone 5 mg 09/01/20 09:00 09/01/20 07:54 Prednisone 5 Mg Tablet PO 5 mg DAILY [facility] Administration Senna 17.2 mg 09/01/20 03:56 Sennosides 8.6 Mg Tablet PO BEDTIME PRN Constipation Sodium Chloride 3 ml 09/01/20 08:00 09/01/20 20:26 0.9 % Sodium Chloride Flush 3 Ml Syringe IVFLUSH 3 ml QSHIFT [facility] Administration Physical Exam Vital Signs: Vital Signs: Last Vital Signs Temp 97.7 F 09/01/20 19:27 Pulse 86 09/01/20 19:27 Resp 15 09/01/20 19:27 BP 136/68 09/01/20 19:27 Pulse Ox 96 09/01/20 19:27 Body Mass Index 20.5 Const: General: cooperative HENMT: Head: Yes normal to inspection Mouth: Normal oral and palatal mucosa present Eyes: General: appearance normal, both eyes and all related structures Resp: Effort & Inspection: normal respiratory effort Cardio: Rate: regular rate Rhythm: regular rhythm GI: Palpation (GI): Soft to palpation and not firm : General: Yes no CVA tenderness Back/Spine/Pelvis: Back: no CVA tenderness Skin: General skin exam: no rashes or lesions noted Rashes: no rashes Extrem: General: Yes normal to inspection Results Labs CBC & Chem 7: 09/01/20 08:24 09/01/20 08:24 Labs: Short CBC 09/01/20 09/01/20 Range/Units 00:52 08:24 WBC 12.5 H 7.9 (4.8-10.8) X10*3/uL Hgb 13.1 11.5 L (12.0-16.0) g/dl Hct 40.6 36.3 L (37-47) % Plt Count 231 188 (160-400) X10*3/uL BMP 09/01/20 09/01/20 00:52 08:24 Sodium 138 138 Potassium 4.3 3.7 Chloride 101 104 Carbon Dioxide 25 26 BUN 14 11 Creatinine 0.62 0.54 Calcium 8.5 7.8 L D Liver Function 09/01/20 Range/Units 00:52 Total Bilirubin 0.6 (0.0-1.0) mg/dL Direct Bilirubin 0.4 (0.0-0.5) mg/dL AST 40 H (5-31) U/L ALT 50 H (0-31) U/L Alkaline Phosphatase 224 H (39-117) U/L Albumin 3.1 L (3.5-5.0) g/dL Urine 09/01/20 Range/Units 02:17 Urine Color YELLOW Urine Appearance CLEAR Urine pH 6.0 (5.0-8.0) Ur Specific [place] 1.020 (1.005-1.025) Urine Protein TRACE (NEG-TRACE) MG/DL Urine Glucose (UA) NEG (NEG) MG/DL Assessment and Plan (1) Lower back pain: Status: Acute (2) Fever: Status: Acute fever likely due to fracture sacrum There is no signs of infection such as UTI or pneumonia Suggest Would not give antibiotics at this time. Await any further information,supportive care.
--- NOTE | 2020-09-02 | ECG_ITS ---
Test Reason : CP Blood Pressure : / mmHG Vent. Rate : 088 BPM Atrial Rate : 088 BPM P-R Int : 138 ms QRS Dur : 114 ms QT Int : 396 ms P-R-T Axes : 064 019 091 degrees QTc Int : 479 ms Normal sinus rhythm Incomplete left bundle branch block Minimal voltage criteria for LVH, may be normal variant ST & T wave abnormality, consider lateral ischemia Prolonged QT Abnormal ECG When compared with ECG of 02-JAN-2020 16:00, No significant change was found Referred By: Arie Paul Electronically Signed By:THOMAS PAULINO MD
[2020-09-02] MEDS: oxyCODONE HCl Immed Release 5 MG TABLET PO ×2 (03:18→09:25)
[2020-09-02] MEDS: Heparin Sodium,Porcine 5,000 UNIT/ML VIAL 5000 UNIT SUBCUT ×2 (03:18→17:13)
[2020-09-02 05:11] LABS: Hematocrit 37.8 % (37-47); Hemoglobin 11.9 g/dl (12.0-16.0); Mean Corpuscular HGB Conc 31.5 g/dl (31.0-35.0); Mean Corpuscular Hemoglobin 30.9 pg (27.0-33.0); Mean Corpuscular Volume 98.2 fL (80-98); Mean Platelet Volume 8.8 fL (9.4-12.3); Platelet Count 172 X10*3/uL (160-400); Red Blood Count 3.85 X10*6/uL (4.20-5.50); Red Cell Distribution Width 13.2 % (11.0-16.0); White Blood Count 6.3 X10*3/uL (4.8-10.8)
[2020-09-02 05:38] LABS: Anion Gap 14 (12-20); Blood Urea Nitrogen 10 mg/dL (9-16); Calcium 7.9 mg/dL (8.4-10.2); Carbon Dioxide 23 mmol/L (22-29); Chloride 104 mmol/L (96-108); Creatinine Clr Calc Pharmacy 61.4; Estimated Glomerular Filt Rate > 60; Glucose Fasting 99 mg/dL (60-99); Potassium 4.2 mmol/L (3.3-5.1); Sodium 137 mmol/L (135-145)
[2020-09-02 07:14] VITALS: BP 100/62; PULSE 88; RESP 19; TEMP 36.8; O2SAT 94
[2020-09-02] MEDS: 0.9 % Sodium Chloride Flush 3 ML SYRINGE IVFLUSH ×2 (08:10→17:14)
[2020-09-02 09:12] VITALS: BP 100/62; PULSE 88; O2SAT 94
[2020-09-02] MEDS: Acetaminophen 325 MG TABLET 650 MG PO (09:25)
[2020-09-02] MEDS: Phenytoin Sodium Extended 100 MG CAPSULE 300 MG PO (09:26)
--- NOTE | 2020-09-02 10:07 | HO.PM.IMPN ---
Subjective Subjective Date of Service: 09/02/20 Interval History: severe back pain Cardiovascular Cardiovascular: Reports no additional cardiovascular complaints Gastrointestinal Gastrointestinal: Reports no additional gastrointestinal complaints Physical Exam Vital Signs: Vital Signs: Last Vital Signs Temp 98.3 F 09/02/20 07:14 Pulse 88 09/02/20 09:12 Resp 19 09/02/20 07:14 BP 100/62 09/02/20 09:12 Pulse Ox 94 09/02/20 09:12 Body Mass Index 20.5 General: AO X 3, in pain, limitted mobility Resp: CTA bilateral CVS: S1,S2,RRR GI: soft, non tender, non distended Neuro: limitted mobility due to pain Psych: appropriate affect Objective Data Current Medications Generic Name Dose Route Start Last Admin Trade Name Freq PRN Reason Stop Dose Admin Acetaminophen 650 mg 09/01/20 03:56 09/02/20 09:25 Acetaminophen 325 Mg Tablet PO 650 mg Q6H PRN Administration Pain, Mild (Pain Scale 1-3) Heparin Sodium (Porcine) 5,000 unit 09/01/20 04:00 09/02/20 03:18 Heparin Sodium,Porcine 5,000 Unit/Ml Vial SUBCUT 5,000 unit Q12H [facility] Administration Hydromorphone HCl 0.5 mg 09/02/20 09:20 Hydromorphone Hcl 0.5 Mg/0.5 Ml Syringe IVPUSH Q4H PRN Pain, Severe (Pain Scale 7-10) Phenytoin Sodium 150 mg/ 103 mls @ 103 mls/hr 09/02/20 11:00 Sodium Chloride IV Q12H [facility] Oxycodone HCl 5 mg 09/02/20 09:20 09/02/20 09:25 Oxycodone Hcl Immed Release 5 Mg Tablet PO 5 mg Q4H PRN Administration Pain, Severe (Pain Scale 7-10) Prednisone 5 mg 09/01/20 09:00 09/01/20 07:54 Prednisone 5 Mg Tablet PO 5 mg DAILY [facility] Administration Senna 17.2 mg 09/01/20 03:56 Sennosides 8.6 Mg Tablet PO BEDTIME PRN Constipation Sodium Chloride 3 ml 09/01/20 08:00 09/02/20 08:10 0.9 % Sodium Chloride Flush 3 Ml Syringe IVFLUSH 3 ml QSHIFT [facility] Administration Labs CBC & Chem 7: 09/02/20 04:49 09/02/20 04:49 Labs: Laboratory Results - last 24 hr 09/02/20 09/02/20 04:49 04:49 WBC 6.3 RBC 3.85 L Hgb 11.9 L Hct 37.8 MCV 98.2 H MCH 30.9 MCHC 31.5 RDW 13.2 Plt Count 172 MPV 8.8 L Absolute Nucleated RBC 0.000 Nucleated RBC % (auto) 0.0 Sodium 137 Potassium 4.2 Chloride 104 Carbon Dioxide 23 Anion Gap 14 BUN 10 Creatinine 0.49 L Estim Creat Clear Calc 61.4 Estimated GFR > 60 Fasting Glucose 99 Calcium 7.9 L Microbiology Microbiology Results: Microbiology 09/01/20 00:52 Blood Culture - Preliminary Blood - Venous No growth after 24 hours. 09/01/20 00:52 Blood Culture - Preliminary Blood - Venous No growth after 24 hours. Quality Stroke Does the patient have a stroke diagnosis?: No VTE Prior VTE?: No VTE Risk Level:: Medical - moderate - high VTE Device Contraindication: Treatment Not Indicated VTE Drug Contraindication: N/A - Med Ordered Assessment and Plan (1) Arthritis: (2) Fall: Status: Acute Assessment and Plan: 84F presented with fall, found to have sacral fracture, copmlicated by episode of fever fever likely due to injury, not infection holding antibiotics culture negative sacral fracture pain control PT seizure disorder currently having difficulty taking pills due to pain, will change to IV dilantin for now normally on phenytoin 300mg ER daily RA prednisone COPD stable
[2020-09-02] MEDS: predniSONE 5 MG TABLET PO (10:12)
[2020-09-02 11:23] VITALS: BP 100/62; PULSE 88; O2SAT 94
[2020-09-02 15:19] VITALS: BP 145/76; PULSE 87; RESP 19; TEMP 37.3; O2SAT 92
[2020-09-02] MEDS: HYDROmorphone HCl 0.5 MG/0.5 ML SYRINGE IVPUSH (17:10)
--- NOTE | 2020-09-02 21:58 | PM.EVENT ---
Event Note Date of Service: 09/02/20 Event Note: SVT: Patient had an episode of SVT with heart rate running in 200s. Broke on its own without any intervention. Currently heart rate is 93. Will obtain TSH. Echocardiogram. Cardiology eval.
[2020-09-03 00:24] VITALS: BP 149/76; PULSE 86; RESP 19; TEMP 36.7; O2SAT 94
[2020-09-03] MEDS: 0.9 % Sodium Chloride Flush 3 ML SYRINGE IVFLUSH ×4 (01:41→21:31)
[2020-09-03] MEDS: Heparin Sodium,Porcine 5,000 UNIT/ML VIAL 5000 UNIT SUBCUT ×2 (04:57→15:37)
[2020-09-03 07:11] LABS: Hematocrit 36.8 % (37-47); Hemoglobin 11.9 g/dl (12.0-16.0); Mean Corpuscular HGB Conc 32.3 g/dl (31.0-35.0); Mean Corpuscular Hemoglobin 31.2 pg (27.0-33.0); Mean Corpuscular Volume 96.3 fL (80-98); Mean Platelet Volume 9.4 fL (9.4-12.3); Platelet Count 213 X10*3/uL (160-400); Red Blood Count 3.82 X10*6/uL (4.20-5.50); Red Cell Distribution Width 12.9 % (11.0-16.0); White Blood Count 6.5 X10*3/uL (4.8-10.8)
[2020-09-03 07:30] LABS: Anion Gap 12 (12-20); Blood Urea Nitrogen 12 mg/dL (9-16); Calcium 8.1 mg/dL (8.4-10.2); Carbon Dioxide 27 mmol/L (22-29); Chloride 102 mmol/L (96-108); Creatinine Clr Calc Pharmacy 60.1; Estimated Glomerular Filt Rate > 60; Glucose Fasting 98 mg/dL (60-99); Potassium 3.7 mmol/L (3.3-5.1); Sodium 137 mmol/L (135-145)
[2020-09-03 07:39] VITALS: BP 143/76; PULSE 85; RESP 18; TEMP 36.6; O2SAT 92
[2020-09-03 07:45] LABS: Thyroid Stimulating Hormone 1.49 uIU/mL (0.32-4.0)
[2020-09-03] MEDS: HYDROmorphone HCl 0.5 MG/0.5 ML SYRINGE IVPUSH ×3 (08:26→21:17)
[2020-09-03] MEDS: predniSONE 5 MG TABLET PO (10:03)
[2020-09-03] MEDS: Phenytoin Sodium Extended 100 MG CAPSULE 300 MG PO (10:03)
--- NOTE | 2020-09-03 10:18 | HO.PM.IMPN ---
Subjective Subjective Date of Service: 09/03/20 Interval History: was ambulating yesterday, this morning in severe pain, refusing to move Cardiovascular Cardiovascular: Reports no additional cardiovascular complaints Gastrointestinal Gastrointestinal: Reports no additional gastrointestinal complaints Physical Exam Vital Signs: Vital Signs: Last Vital Signs Temp 98 F 09/03/20 07:39 Pulse 85 09/03/20 07:39 Resp 18 09/03/20 07:39 BP 143/76 H 09/03/20 07:39 Pulse Ox 92 09/03/20 07:39 Body Mass Index 20.5 General: AO X 3, in pain, limitted mobility Resp: CTA bilateral CVS: S1,S2,RRR GI: soft, non tender, non distended Neuro: limitted mobility due to pain Psych: appropriate affect Objective Data Current Medications Generic Name Dose Route Start Last Admin Trade Name Freq PRN Reason Stop Dose Admin Acetaminophen 650 mg 09/01/20 03:56 09/02/20 09:25 Acetaminophen 325 Mg Tablet PO 650 mg Q6H PRN Administration Pain, Mild (Pain Scale 1-3) Heparin Sodium (Porcine) 5,000 unit 09/01/20 04:00 09/03/20 04:57 Heparin Sodium,Porcine 5,000 Unit/Ml Vial SUBCUT 5,000 unit Q12H [facility] Administration Hydromorphone HCl 0.5 mg 09/02/20 09:20 09/03/20 08:26 Hydromorphone Hcl 0.5 Mg/0.5 Ml Syringe IVPUSH 0.5 mg Q4H PRN Administration Pain, Severe (Pain Scale 7-10) Oxycodone HCl 5 mg 09/02/20 09:20 09/02/20 09:25 Oxycodone Hcl Immed Release 5 Mg Tablet PO 5 mg Q4H PRN Administration Pain, Severe (Pain Scale 7-10) Phenytoin Sodium 300 mg 09/03/20 09:00 09/03/20 10:03 Phenytoin Sodium Extended 100 Mg Capsule PO 300 mg DAILY [facility] Administration Prednisone 5 mg 09/01/20 09:00 09/03/20 10:03 Prednisone 5 Mg Tablet PO 5 mg DAILY [facility] Administration Senna 17.2 mg 09/01/20 03:56 Sennosides 8.6 Mg Tablet PO BEDTIME PRN Constipation Sodium Chloride 3 ml 09/01/20 08:00 09/03/20 08:27 0.9 % Sodium Chloride Flush 3 Ml Syringe IVFLUSH 3 ml QSHIFT [facility] Administration Labs CBC & Chem 7: 09/03/20 05:53 09/03/20 05:53 Labs: Laboratory Results - last 24 hr 09/03/20 09/03/20 09/03/20 05:53 05:53 05:53 WBC 6.5 RBC 3.82 L Hgb 11.9 L Hct 36.8 L MCV 96.3 MCH 31.2 MCHC 32.3 RDW 12.9 Plt Count 213 MPV 9.4 Absolute Nucleated RBC 0.000 Nucleated RBC % (auto) 0.0 Sodium 137 Potassium 3.7 Chloride 102 Carbon Dioxide 27 Anion Gap 12 BUN 12 Creatinine 0.50 Estim Creat Clear Calc 60.1 Estimated GFR > 60 Fasting Glucose 98 Calcium 8.1 L TSH 1.49 Microbiology Microbiology Results: Microbiology 09/01/20 00:52 Blood Culture - Preliminary Blood - Venous No growth after 48 hours. 09/01/20 00:52 Blood Culture - Preliminary Blood - Venous No growth after 48 hours. Quality Stroke Does the patient have a stroke diagnosis?: No VTE Prior VTE?: No VTE Risk Level:: Medical - moderate - high VTE Device Contraindication: Treatment Not Indicated VTE Drug Contraindication: N/A - Med Ordered Assessment and Plan (1) Arthritis: (2) Fall: Status: Acute Assessment and Plan: 84F presented with fall, found to have sacral fracture, copmlicated by episode of fever fever likely due to injury, not infection holding antibiotics culture negative no further fevers sacral fracture pain control PT needs better control prior to snf transfer seizure disorder phenytoin 300mg ER daily RA prednisone COPD stable
--- NOTE | 2020-09-03 10:44 | P.CONCA_ITS ---
History of Present Illness History of Present Illness Date of Service: 09/03/20 Requesting physician: Helder Saldana Chief complaint: SVT Narrative: 84-year-old female with mechanical fall and sacral fracture. She has been in pain due to that. We are consulted because she had 7 minutes of supraventricular tachycardia versus atrial flutter overnight. She did not have any symptoms with that. It appears she has COPD and is requiring some oxygen inpatient. She was not on home oxygen. She also had a fever which was 1 episode. Denying any palpitations or any other symptoms right now. No history of seizure disorder and has been on phenytoin. Has rheumatoid arthritis and is on prednisone. [facility] Past Medical History Medical History Arthritis Hx of fracture of hip Seizure disorder Smoker Family History Family History Sister Leukemia Family history: reviewed and not pertinent Surgical History Surgical History History of neck surgery Social History Social History Household Members: None Housing: House Are you a primary respiratory care practitioner to a significant other at home: No Do you presently have visiting nurse or other home services: No Alcohol intake: current Patient Tobacco Use Status: Current everyday Tobacco user Tobacco use type: Cigarette Cigarettes Per Day: 10 Years Smoked: 50 Smoked in Last 30 Days: Yes e-Cigarette/Vaping Use: Never Used Patient Interested in Nicotine Replacement: No Patient Given Instructions on How to Stop Smoking: No (pt refused) Second Hand Smoke Exposure: No Use of substances other than those prescribed or required for medical reasons: No Currently Displaying Signs/Symptoms of Drug Intoxication Withdrawal: No Have you been hit, kicked, punched, or otherwise hurt by someone within the past year? If so, by whom?: No Do you feel safe in your current relationship?: No Is there a partner from a previous relationship who is making you feel unsafe now?: No Are you made to feel afraid or neglected: No Advance Directives: No Advance Directives Information Provided: No Do you have thoughts of harming others: None Do you have a plan to hurt others: No Plan Recently lost weight without trying: No Patient : No : No Poor oral hygiene: No service: No Current occupational status: retired [employer] Allergies Allergy/AdvReac Type Severity Reaction Status Date / Time No Known Allergies Allergy Verified 09/02/20 09:04 [No Known Allergies*] Active Medications: Current Medications Generic Name Dose Route Start Last Admin Trade Name Freq PRN Reason Stop Dose Admin Acetaminophen 650 mg 09/01/20 03:56 09/02/20 09:25 Acetaminophen 325 Mg Tablet PO 650 mg Q6H PRN Administration Pain, Mild (Pain Scale 1-3) Heparin Sodium (Porcine) 5,000 unit 09/01/20 04:00 09/03/20 04:57 Heparin Sodium,Porcine 5,000 Unit/Ml Vial SUBCUT 5,000 unit Q12H AVTAR Administration Hydromorphone HCl 0.5 mg 09/02/20 09:20 09/03/20 08:26 Hydromorphone Hcl 0.5 Mg/0.5 Ml Syringe IVPUSH 0.5 mg Q4H PRN Administration Pain, Severe (Pain Scale 7-10) Oxycodone HCl 5 mg 09/02/20 09:20 09/02/20 09:25 Oxycodone Hcl Immed Release 5 Mg Tablet PO 5 mg Q4H PRN Administration Pain, Severe (Pain Scale 7-10) Phenytoin Sodium 300 mg 09/03/20 09:00 09/03/20 10:03 Phenytoin Sodium Extended 100 Mg Capsule PO 300 mg DAILY AVTAR Administration Prednisone 5 mg 09/01/20 09:00 09/03/20 10:03 Prednisone 5 Mg Tablet PO 5 mg DAILY AVTAR Administration Senna 17.2 mg 09/01/20 03:56 Sennosides 8.6 Mg Tablet PO BEDTIME PRN Constipation Sodium Chloride 3 ml 09/01/20 08:00 09/03/20 08:27 0.9 % Sodium Chloride Flush 3 Ml Syringe IVFLUSH 3 ml QSHIFT AVTAR Administration Physical Exam Vital Signs: Vital Signs: Last Vital Signs Temp 98 F 09/03/20 07:39 Pulse 85 09/03/20 07:39 Resp 18 09/03/20 07:39 BP 143/76 H 09/03/20 07:39 Pulse Ox 92 09/03/20 07:39 Body Mass Index 20.5 GENERAL APPEARANCE: in no acute distress, pleasant. SKIN: no suspicious lesions, warm and dry. HEART: no murmurs, regular rate and rhythm. LUNGS: clear to auscultation bilaterally. ABDOMEN: soft, nontender. EXTREMITIES: no edema. PERIPHERAL PULSES: equal. NEUROLOGIC: No gross deficits, AAO X 3 Results Labs and Meds Result diagrams: 09/03/20 05:53 09/03/20 05:53 Lab results: Laboratory Results - last 24 hr 09/03/20 09/03/20 09/03/20 05:53 05:53 05:53 WBC 6.5 RBC 3.82 L Hgb 11.9 L Hct 36.8 L MCV 96.3 MCH 31.2 MCHC 32.3 RDW 12.9 Plt Count 213 MPV 9.4 Absolute Nucleated RBC 0.000 Nucleated RBC % (auto) 0.0 Sodium 137 Potassium 3.7 Chloride 102 Carbon Dioxide 27 Anion Gap 12 BUN 12 Creatinine 0.50 Estim Creat Clear Calc 60.1 Estimated GFR > 60 Fasting Glucose 98 Calcium 8.1 L TSH 1.49 Assessment and Plan (1) Atrial arrhythmia: Status: Acute 84-year-old female who had 7 minutes of atrial arrhythmia with di fferential of supraventricular tachycardia versus atrial flutter/tachycardia overnight. She has been asymptomatic. Adding metoprolol 25 mg twice a day. She had fever but has been fever free right now. She has some aspiration risk. Also D-dimer was significantly elevated which led to CT scan which was normal for pulmonary embolism. Given fever and significantly elevated D-dimer I think we should check her legs to make sure she does not have any DVT. Thank you for allowing me to participate in the care of your patient. Please feel free to contact me if you have any questions. Procedures Date of Service Date of Service: 09/03/20
[2020-09-03 12:00] VITALS: BP 142/82; PULSE 85
[2020-09-03] MEDS: oxyCODONE HCl Immed Release 5 MG TABLET PO (12:00)
[2020-09-03] MEDS: Metoprolol Tartrate 25 MG TABLET PO ×2 (12:00→21:22)
[2020-09-03 15:16] VITALS: BP 112/68; PULSE 86; RESP 18; TEMP 36.8; O2SAT 92
--- NOTE | 2020-09-03 15:58 | PC.NURSE ---
Pt OOB to recliner using x2 assist. Pt up in recliner for about 4 hours. Tolerated fair.
[2020-09-03 21:22] VITALS: BP 105/73; PULSE 78
[2020-09-03 23:10] VITALS: BP 137/83; PULSE 84; RESP 18; TEMP 36.9; O2SAT 96
[2020-09-04] VITALS (7 sets, daily range): BP systolic 103–132; BP diastolic 60–69; PULSE 74–88; RESP 18–20; TEMP 36.4–37; O2SAT 95–97
[2020-09-04] MEDS: oxyCODONE HCl Immed Release 5 MG TABLET PO (00:47)
[2020-09-04] MEDS: HYDROmorphone HCl 0.5 MG/0.5 ML SYRINGE IVPUSH ×2 (02:21→08:12)
[2020-09-04] MEDS: Heparin Sodium,Porcine 5,000 UNIT/ML VIAL 5000 UNIT SUBCUT ×2 (02:27→16:58)
[2020-09-04] MEDS: 0.9 % Sodium Chloride Flush 3 ML SYRINGE IVFLUSH ×3 (08:13→22:33)
[2020-09-04] MEDS: Metoprolol Tartrate 25 MG TABLET PO ×2 (09:51→22:32)
[2020-09-04] MEDS: predniSONE 5 MG TABLET PO (09:52)
[2020-09-04] MEDS: Phenytoin Sodium Extended 100 MG CAPSULE 300 MG PO (09:52)
--- NOTE | 2020-09-04 10:25 | HO.PM.IMPN ---
Subjective Subjective Date of Service: 09/04/20 Interval History: pain still present but better than yesterday Cardiovascular Cardiovascular: Reports no additional cardiovascular complaints Gastrointestinal Gastrointestinal: Reports no additional gastrointestinal complaints Physical Exam Vital Signs: Vital Signs: Last Vital Signs Temp 98.5 F 09/04/20 07:34 Pulse 88 09/04/20 09:51 Resp 18 09/04/20 07:34 BP 127/60 09/04/20 09:51 Pulse Ox 96 09/04/20 07:34 Body Mass Index 20.5 General: AO X 3, in pain, limitted mobility Resp: CTA bilateral CVS: S1,S2,RRR GI: soft, non tender, non distended Neuro: limitted mobility due to pain Psych: appropriate affect Objective Data Current Medications Generic Name Dose Route Start Last Admin Trade Name Freq PRN Reason Stop Dose Admin Acetaminophen 650 mg 09/01/20 03:56 09/02/20 09:25 Acetaminophen 325 Mg Tablet PO 650 mg Q6H PRN Administration Pain, Mild (Pain Scale 1-3) Heparin Sodium (Porcine) 5,000 unit 09/01/20 04:00 09/04/20 02:27 Heparin Sodium,Porcine 5,000 Unit/Ml Vial SUBCUT 5,000 unit Q12H AVTAR Administration Hydromorphone HCl 0.5 mg 09/02/20 09:20 09/04/20 08:12 Hydromorphone Hcl 0.5 Mg/0.5 Ml Syringe IVPUSH 0.5 mg Q4H PRN Administration Pain, Severe (Pain Scale 7-10) Metoprolol Tartrate 25 mg 09/03/20 12:00 09/04/20 09:51 Metoprolol Tartrate 25 Mg Tablet PO 25 mg BID AVTAR Administration Protocol Oxycodone HCl 5 mg 09/02/20 09:20 09/04/20 00:47 Oxycodone Hcl Immed Release 5 Mg Tablet PO 5 mg Q4H PRN Administration Pain, Severe (Pain Scale 7-10) Phenytoin Sodium 300 mg 09/03/20 09:00 09/04/20 09:52 Phenytoin Sodium Extended 100 Mg Capsule PO 300 mg DAILY AVTAR Administration Prednisone 5 mg 09/01/20 09:00 09/04/20 09:52 Prednisone 5 Mg Tablet PO 5 mg DAILY AVTAR Administration Senna 17.2 mg 09/01/20 03:56 Sennosides 8.6 Mg Tablet PO BEDTIME PRN Constipation Sodium Chloride 3 ml 09/01/20 08:00 09/04/20 08:13 0.9 % Sodium Chloride Flush 3 Ml Syringe IVFLUSH 3 ml QSHIFT AVTAR Administration Labs CBC & Chem 7: 09/03/20 05:53 09/03/20 05:53 Quality Stroke Does the patient have a stroke diagnosis?: No VTE Prior VTE?: No VTE Risk Level:: Medical - moderate - high VTE Device Contraindication: N/A - Device Ordered VTE Drug Contraindication: N/A - Med Ordered Assessment and Plan (1) Arthritis: (2) Fall: Status: Acute Assessment and Plan: 84F presented with fall, found to have sacral fracture, copmlicated by episode of fever fever likely due to injury, not infection holding antibiotics culture negative no further fevers sacral fracture still uncontrolled pain, will add ms contin low dose PT needs better control prior to snf transfer seizure disorder phenytoin 300mg ER daily RA prednisone COPD stable
[2020-09-04] MEDS: Morphine Sulfate ER 15 MG TABLET.ER PO ×2 (12:16→22:32)
[2020-09-05] VITALS (7 sets, daily range): BP systolic 124–153; BP diastolic 63–81; PULSE 77–86; RESP 18; TEMP 36.2–37.2; O2SAT 93–97
[2020-09-05] MEDS: Heparin Sodium,Porcine 5,000 UNIT/ML VIAL 5000 UNIT SUBCUT ×2 (04:17→17:09)
[2020-09-05] MEDS: HYDROmorphone HCl 0.5 MG/0.5 ML SYRINGE IVPUSH (04:18)
[2020-09-05] MEDS: 0.9 % Sodium Chloride Flush 3 ML SYRINGE IVFLUSH ×3 (07:39→21:53)
[2020-09-05] MEDS: Phenytoin Sodium Extended 100 MG CAPSULE 300 MG PO (08:41)
[2020-09-05] MEDS: Metoprolol Tartrate 25 MG TABLET PO ×2 (08:42→21:53)
[2020-09-05] MEDS: predniSONE 5 MG TABLET PO (08:42)
[2020-09-05] MEDS: oxyCODONE HCl Immed Release 5 MG TABLET PO (08:43)
--- NOTE | 2020-09-05 09:50 | HO.PM.IMPN ---
Subjective Subjective Date of Service: 09/05/20 Interval History: still in severe pain Cardiovascular Cardiovascular: Reports no additional cardiovascular complaints Gastrointestinal Gastrointestinal: Reports no additional gastrointestinal complaints Physical Exam Vital Signs: Vital Signs: Last Vital Signs Temp 97.1 F 09/05/20 07:16 Pulse 77 09/05/20 08:42 Resp 18 09/05/20 07:16 BP 141/74 H 09/05/20 08:42 Pulse Ox 95 09/05/20 07:16 Body Mass Index 20.5 General: AO X 3, in pain, limitted mobility Resp: CTA bilateral CVS: S1,S2,RRR GI: soft, non tender, non distended Neuro: limitted mobility due to pain Psych: appropriate affect Objective Data Current Medications Generic Name Dose Route Start Last Admin Trade Name Freq PRN Reason Stop Dose Admin Acetaminophen 650 mg 09/01/20 03:56 09/02/20 09:25 Acetaminophen 325 Mg Tablet PO 650 mg Q6H PRN Administration Pain, Mild (Pain Scale 1-3) Heparin Sodium (Porcine) 5,000 unit 09/01/20 04:00 09/05/20 04:17 Heparin Sodium,Porcine 5,000 Unit/Ml Vial SUBCUT 5,000 unit Q12H AVTAR Administration Hydromorphone HCl 0.5 mg 09/02/20 09:20 09/05/20 04:18 Hydromorphone Hcl 0.5 Mg/0.5 Ml Syringe IVPUSH 0.5 mg Q4H PRN Administration Pain, Severe (Pain Scale 7-10) Metoprolol Tartrate 25 mg 09/03/20 12:00 09/05/20 08:42 Metoprolol Tartrate 25 Mg Tablet PO 25 mg BID AVTAR Administration Protocol Morphine Sulfate 15 mg 09/04/20 11:00 09/04/20 22:32 Morphine Sulfate Er 15 Mg Tablet.Er PO 15 mg Q12H AVTAR Administration Oxycodone HCl 5 mg 09/02/20 09:20 09/05/20 08:43 Oxycodone Hcl Immed Release 5 Mg Tablet PO 5 mg Q4H PRN Administration Pain, Severe (Pain Scale 7-10) Phenytoin Sodium 300 mg 09/03/20 09:00 09/05/20 08:41 Phenytoin Sodium Extended 100 Mg Capsule PO 300 mg DAILY ATVAR Administration Prednisone 5 mg 09/01/20 09:00 09/05/20 08:42 Prednisone 5 Mg Tablet PO 5 mg DAILY AVTAR Administration Senna 17.2 mg 09/01/20 03:56 Sennosides 8.6 Mg Tablet PO BEDTIME PRN Constipation Sodium Chloride 3 ml 09/01/20 08:00 09/05/20 07:39 0.9 % Sodium Chloride Flush 3 Ml Syringe IVFLUSH 3 ml QSHIFT AVTAR Administration Labs CBC & Chem 7: 09/03/20 05:53 09/03/20 05:53 Quality Stroke Does the patient have a stroke diagnosis?: No VTE Prior VTE?: No VTE Risk Level:: Medical - moderate - high VTE Device Contraindication: N/A - Device Ordered VTE Drug Contraindication: N/A - Med Ordered Assessment and Plan (1) Arthritis: (2) Fall: Status: Acute Assessment and Plan: 84F presented with fall, found to have sacral fracture, copmlicated by episode of fever fever likely due to injury, not infection holding antibiotics culture negative no further fevers sacral fracture still uncontrolled pain, increased ms contin to 15mg q8, increased frequency of dilaudid prn to 0.5mg q2h PT needs better control prior to snf transfer seizure disorder phenytoin 300mg ER daily RA prednisone COPD stable
--- NOTE | 2020-09-05 10:00 | CA_ITS ---
Transthoracic Echocardiogram Patient (Last, First, Middle): Orquidea Thurman Ann Gender: Female Date of : 1935 Age: 84 Procedure Date: 09/05/2020 Procedure Type: Transthoracic Echocardiogram Location: 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 Low normal LV ejection fraction of 50-55% 2. Normal cardiac valvular Doppler 3. Normal RV systolic pressure 4. No pericardial effusion Findings Left Ventricle Normal left ventricular cavity size. There is normal left ventricular wall thickness. The left ventricular systolic function is low normal. The visually estimated ejection fraction is between 50-55%. Regional wall motion abnormalities can not be excluded due to suboptimal endocardial definition. Diastolic function is indeterminate on the basis of available data. Right Ventricle The right ventricle was not well visualized. Atria The left atrium is normal in size. There is lipomatous hypertrophy of the interatrial septum. There is no evidence of interatrial shunt. The right atrium is normal in size. Aortic Valve There is mild calcification of the aortic valve. There is mild thickening of the aortic valve. There is no aortic valve stenosis. There is no aortic valve regurgitation. Mitral Valve Likely normal mitral valve structure and function. There is trace mitral valve regurgitation. There is no mitral valve stenosis. Pulmonic Valve The pulmonic valve was not well visualized. Tricuspid Valve There is trace tricuspid valve regurgitation. The right ventricular systolic pressure is normal. The right ventricular systolic pressure is 30 mmHg. Normal right atrial pressure. There is no evidence of pulmonary hypertension. Great Vessels All visible segments of the aorta are normal in size. The pulmonary artery was not well visualized. Venous The inferior vena cava is normal in size and collapses greater than 50% with inspiration. Pericardium/Pleural There is no evidence of pericardial effusion. Prior Study Comparison Changes noted compared to prior study dated: 09/05/2020. LV systolic function appears improved on this study Measurements 2D Linear Measurements IVSd: 1.01 0.6-0.9/0.6-1.0 cm LVIDd: 3.62 3.9-5.3/4.2-5.9 cm LVIDd Index: 2.55 2.4-3.2/2.2-3.1 cm/m2 LVIDs: 2.34 2.0-3.6 cm LVPWd: 1.09 0.7-1.1 cm Ao Root: 2.70 2.1-3.5 cm LA Diam: 2.30 2.7-3.8/3.0-4.0 cm LAIDs Index: 1.62 1.5-2.3 cm/m2 LV Mass: 145.30 67-162/88-224 g LV Mass Index: 102.32 43-95/49-115 g/m2 LVOT Diam: 2.00 3.0+(-)1.3 cm Mitral Valve MV Pk E: 0.60 MV PK A: 1.12 MV Decel Time: 99.00 E/A: 0.50 E'Lateral: 8.81 E'Medial: 4.46 E/E' Med: 13.40 E/E' Lat: 6.80 PHT: 29.00 MVA PHT: 7.59 Decel Toole: 6.01 Aortic Valve AoV Pk Giancarlo: 1.28 AoV Mn Giancarlo: 0.88 AoV VTI: 0.26 AoV Pk Grad: 7.00 Aov Mn Grad: 4.00 FADY Cont.VTI: 2.08 LVOT LVOT Pk Giancarlo: 0.97 LVOT Mn Giancarlo: 0.59 LVOT VTI: 0.17 LVOT Pk Grad: 4.00 LVOT Mn Grad: 2.00 LVOT Diam: 2.00 LVOT Area: 3.14 Diastolic Function MV Pk E: 0.60 MV Pk A: 1.12 E/A: 0.50 E'Medial: 4.46 E/E' Med: 13.40 E' Laterial: 8.81 E/E' Lat: 6.80 Tricuspid Valve TR Pk Giancarlo: 2.60 TR Pk Grad: 27.00 RA Press: 3.00 RVSP: 30.00 Great Vessels Aorta Ao Root-2D: 2.70 2.0-3.7 cm Ao Asc: 3.30 2.1-3.4 cm Pulmonary Valve PV Pk Giancarlo: 0.88 Peak PV Grad: 3.00 Updated in Other Vendor System with Status of Final James Barnes MD electronically signed on 09/05/2020 11:09:44 AM with status of Final
--- NOTE | 2020-09-05 15:08 | PC.NURSE ---
Addendum entered by Helen Nye RN 09/05/20 15:32: A pressure reduction mattress was ordered for patient. Original Note: Skin and wound assessment completed. Patient was found to have 3 blisters and redness to left lower back which is new. Patient needs to be turned more often on to her sides, this will help heal the blisters and less pain for patient. EPC cream was applied to blisters and covered with foam.
[2020-09-05] MEDS: Morphine Sulfate ER 15 MG TABLET.ER PO (17:09)
[2020-09-06] VITALS (9 sets, daily range): BP systolic 94–127; BP diastolic 60–74; PULSE 74–80; RESP 15–20; TEMP 36.5–37.1; O2SAT 91–97
[2020-09-06] MEDS: Morphine Sulfate ER 15 MG TABLET.ER PO ×3 (04:50→18:25)
[2020-09-06] MEDS: Heparin Sodium,Porcine 5,000 UNIT/ML VIAL 5000 UNIT SUBCUT ×2 (04:50→16:31)
[2020-09-06] MEDS: Phenytoin Sodium Extended 100 MG CAPSULE 300 MG PO (08:41)
[2020-09-06] MEDS: 0.9 % Sodium Chloride Flush 3 ML SYRINGE IVFLUSH ×2 (08:42→16:39)
[2020-09-06] MEDS: Metoprolol Tartrate 25 MG TABLET PO (08:42)
[2020-09-06] MEDS: predniSONE 5 MG TABLET PO (08:42)
--- NOTE | 2020-09-06 10:41 | HO.PM.IMPN ---
Subjective Subjective Date of Service: 09/06/20 Interval History: still in severe pain, no BM for 4 days Cardiovascular Cardiovascular: Reports no additional cardiovascular complaints Gastrointestinal Gastrointestinal: Reports no additional gastrointestinal complaints Physical Exam Vital Signs: Vital Signs: Last Vital Signs Temp 97.7 F 09/06/20 07:57 Pulse 75 09/06/20 10:30 Resp 20 09/06/20 07:57 BP 127/61 09/06/20 10:30 Pulse Ox 96 09/06/20 07:57 Body Mass Index 20.5 General: AO X 3, in pain, limitted mobility Resp: CTA bilateral CVS: S1,S2,RRR GI: soft, non tender, non distended Neuro: limitted mobility due to pain Psych: appropriate affect Objective Data Current Medications Generic Name Dose Route Start Last Admin Trade Name Freq PRN Reason Stop Dose Admin Acetaminophen 650 mg 09/01/20 03:56 09/02/20 09:25 Acetaminophen 325 Mg Tablet PO 650 mg Q6H PRN Administration Pain, Mild (Pain Scale 1-3) Heparin Sodium (Porcine) 5,000 unit 09/01/20 04:00 09/06/20 04:50 Heparin Sodium,Porcine 5,000 Unit/Ml Vial SUBCUT 5,000 unit Q12H AVTAR Administration Hydromorphone HCl 0.75 mg 09/06/20 10:39 Hydromorphone Hcl 0.5 Mg/0.5 Ml Syringe IVPUSH Q2H PRN Pain, Severe (Pain Scale 7-10) Metoprolol Tartrate 25 mg 09/03/20 12:00 09/06/20 08:42 Metoprolol Tartrate 25 Mg Tablet PO 25 mg BID AVTAR Administration Protocol Morphine Sulfate 15 mg 09/05/20 10:00 09/06/20 09:25 Morphine Sulfate Er 15 Mg Tablet.Er PO 15 mg Q8H AVTAR Administration Oxycodone HCl 5 mg 09/02/20 09:20 09/05/20 08:43 Oxycodone Hcl Immed Release 5 Mg Tablet PO 5 mg Q4H PRN Administration Pain, Severe (Pain Scale 7-10) Phenytoin Sodium 300 mg 09/03/20 09:00 09/06/20 08:41 Phenytoin Sodium Extended 100 Mg Capsule PO 300 mg DAILY AVTAR Administration Polyethylene Glycol 17 gm 09/06/20 10:40 Polyethylene Glycol 3350 17 Gm Powd.Pack PO DAILY AVTAR Prednisone 5 mg 09/01/20 09:00 09/06/20 08:42 Prednisone 5 Mg Tablet PO 5 mg DAILY AVTAR Administration Senna 17.2 mg 09/01/20 03:56 Sennosides 8.6 Mg Tablet PO BEDTIME PRN Constipation Sodium Chloride 3 ml 09/01/20 08:00 09/06/20 08:42 0.9 % Sodium Chloride Flush 3 Ml Syringe IVFLUSH 3 ml QSHIFT AVTAR Administration Labs CBC & Chem 7: 09/03/20 05:53 09/03/20 05:53 Microbiology Microbiology Results: Microbiology 09/01/20 00:52 Blood Culture - Final Blood - Venous No growth after 5 days. 09/01/20 00:52 Blood Culture - Final Blood - Venous No growth after 5 days. Quality Stroke Does the patient have a stroke diagnosis?: No VTE Prior VTE?: No VTE Risk Level:: Medical - moderate - high VTE Device Contraindication: N/A - Device Ordered VTE Drug Contraindication: N/A - Med Ordered Assessment and Plan (1) Arthritis: (2) Fall: Status: Acute Assessment and Plan: 84F presented with fall, found to have sacral fracture, copmlicated by episode of fever fever likely due to injury, not infection holding antibiotics culture negative no further fevers sacral fracture still uncontrolled pain, continue ms contin 15mg q8, increased dilaudid prn to 0.75mg q2h PT needs better control prior to snf transfer miralax for constipation prophylaxis seizure disorder phenytoin 300mg ER daily RA prednisone COPD stable
--- NOTE | 2020-09-06 11:29 | MHC.CM.PN ---
PT NOT YET CLEARED FOR DC. PLAN IS STR. THERE ARE CURRENTLY TWO FACILITIES FOLLOWING, [facility] AND [facility] PT REPORTS [facility] IS PREFERRED FACILITY.
[2020-09-06] MEDS: polyethylene glycoL 3350 17 GM POWD.PACK PO (12:22)
--- NOTE | 2020-09-06 12:23 | PC.NURSE ---
Benadryl cream for itching back ordered by at request of wound nurse.
--- NOTE | 2020-09-06 15:16 | PC.NURSE ---
Pt skin assessment completed. Patient has blisters on left lower back. EPC cream and foam cover. A Sizewise pressure relief mattress was ordered for patient. Patient states it is very comfortable and is thankful due to her severe pain.
[2020-09-06] MEDS: HYDROmorphone HCl 0.5 MG/0.5 ML SYRINGE 0.75 MG IVPUSH (20:00)
[2020-09-06] MEDS: diphenhydrAMINE HCl 2 % Cream 28 GM TUBE 1 APPL TOPICAL (20:01)
[2020-09-07] VITALS (10 sets, daily range): BP systolic 104–175; BP diastolic 61–83; PULSE 66–93; RESP 16–20; TEMP 36.1–36.9; O2SAT 92–96
[2020-09-07] MEDS: 0.9 % Sodium Chloride Flush 3 ML SYRINGE IVFLUSH ×3 (01:22→16:19)
[2020-09-07] MEDS: HYDROmorphone HCl 0.5 MG/0.5 ML SYRINGE 0.75 MG IVPUSH ×2 (01:52→08:27)
[2020-09-07] MEDS: HYDROmorphone HCl 0.5 MG/0.5 ML SYRINGE IVPUSH ×2 (04:36→22:01)
[2020-09-07] MEDS: Heparin Sodium,Porcine 5,000 UNIT/ML VIAL 5000 UNIT SUBCUT ×2 (04:36→22:00)
[2020-09-07 06:50] LABS: Hematocrit 34.8 % (37-47); Mean Corpuscular HGB Conc 31.6 g/dl (31.0-35.0); Mean Corpuscular Hemoglobin 31.2 pg (27.0-33.0); Mean Corpuscular Volume 98.6 fL (80-98); Mean Platelet Volume 9.2 fL (9.4-12.3); Platelet Count 233 X10*3/uL (160-400); Red Blood Count 3.53 X10*6/uL (4.20-5.50); White Blood Count 5.8 X10*3/uL (4.8-10.8)
[2020-09-07 06:54] LABS: Anion Gap 15 (12-20); Blood Urea Nitrogen 10 mg/dL (9-16); Carbon Dioxide 29 mmol/L (22-29); Chloride 99 mmol/L (96-108); Creatinine Clr Calc Pharmacy 60.1; Estimated Glomerular Filt Rate > 60; Glucose Fasting 98 mg/dL (60-99); Potassium 4.1 mmol/L (3.3-5.1); Sodium 139 mmol/L (135-145)
--- NOTE | 2020-09-07 11:19 | MHC.CM.PN ---
Addendum entered by Amparo Nava 09/07/20 12:08: DC TO [facility] SATURDAY. FACILITY AWARE. Original Note: CM RECEIVED A CALL FROM PTS NIECE/HCP, ALEIDA WHO REPORTED SHE FEELS THE PT WILL NEED TO BE PUSHED MORE. SHE REPORTS THE PT HAS NO PAIN TOLERANCE AND WILL REFUSE TO DO ANYTHING MUCH POSSIBLE. SHE REPORTS SHE CAME TO VISIT THE PT AND THE PT WAS NOT EVEN OPENING HER EYES OR EATING/DRINKING ON HER OWN EVEN THOUGH SHE IS CAPABLE OF DOING SO. ALEIDA REPORTS THE PT BEGAN MOANING, SAYING IT HURTS WHILE SHE WAS VISITING AND WHEN ALEIDA ASKED WHAT WAS HURTING THE PT REPORTED, MY HEAD ITCHES . ALEIDA REPORTS THE PT IS AWARE SHE NEEDS STR AND NEEDS TO KNOW THAT IF SHE DOES NOT PARTICIPATE IN TREATMENT, THE FACILITIES WILL NOT OFFER HER A BED. SHE PLANS TO SPEAK TO PT AND IS AWARE [facility] IS OFFERING A BED. CURRENT DC PLAN IS STR AT [facility] TRANSPORT
[2020-09-07] MEDS: Acetaminophen 325 MG TABLET 650 MG PO (14:36)
[2020-09-07] MEDS: oxyCODONE HCl Immed Release 5 MG TABLET PO (14:37)
[2020-09-07] MEDS: Phenytoin Sodium Extended 100 MG CAPSULE 300 MG PO (14:37)
[2020-09-07] MEDS: Metoprolol Tartrate 25 MG TABLET PO (14:38)
[2020-09-07] MEDS: Docusate Sodium 100 MG CAPSULE PO (14:38)
[2020-09-07] MEDS: predniSONE 5 MG TABLET PO (14:39)
[2020-09-07] MEDS: Sennosides 8.6 MG TABLET 17.2 MG PO (14:39)
[2020-09-07] MEDS: polyethylene glycoL 3350 17 GM POWD.PACK PO (14:45)
--- NOTE | 2020-09-07 15:19 | HO.PM.IMPN ---
Subjective Subjective Date of Service: 09/07/20 Interval History: the patient was seen and evaluated this morning Laying in bed, sleepy, difficult to wake up Denies any fever, chills or shortness of breath No reported other overnight events. Systemic review: No fever, chills or weakness No chest pain, palpitation No shortness of breath or coughing No abdominal pain, nausea or vomiting No urinary symptoms No any rash or wounds Physical Exam Vital Signs: Vital Signs: Last Vital Signs Temp 97.8 F 09/07/20 14:56 Pulse 89 09/07/20 14:56 Resp 20 09/07/20 14:56 BP 104/73 09/07/20 14:56 Pulse Ox 92 09/07/20 14:56 Body Mass Index 20.5 Const: Other: Constitutional : Alert with stimulation, not in distress button pain Neck : Normal inspection, Supple Cardiovascular : RRR, S1 S2, no lower extremity edema Respiratory : Good bilateral air entry, no crackles, wheezes or rhonchi Gastrointestinal: soft, lax, Normal bowel sounds, Non tender Skin : Warm/Dry, No rash Neurological : Alert, No focal deficit Objective Data Current Medications Generic Name Dose Route Start Last Admin Trade Name Freq PRN Reason Stop Dose Admin Acetaminophen 650 mg 09/01/20 03:56 09/02/20 09:25 Acetaminophen 325 Mg Tablet PO 650 mg Q6H PRN Administration Pain, Mild (Pain Scale 1-3) Acetaminophen 650 mg 09/07/20 08:30 09/07/20 14:36 Acetaminophen 325 Mg Tablet PO 650 mg Q6H [facility] Administration Docusate Sodium 100 mg 09/07/20 09:00 09/07/20 14:38 Docusate Sodium 100 Mg Capsule PO 100 mg BID AVTAR Administration Hydromorphone HCl 0.5 mg 09/07/20 10:53 Hydromorphone Hcl 0.5 Mg/0.5 Ml Syringe IVPUSH Q4H PRN Pain, Severe (Pain Scale 7-10) Metoprolol Tartrate 25 mg 09/03/20 12:00 09/07/20 14:38 Metoprolol Tartrate 25 Mg Tablet PO 25 mg BID AVTAR Administration Protocol Oxycodone HCl 5 mg 09/07/20 10:53 09/07/20 14:37 Oxycodone Hcl Immed Release 5 Mg Tablet PO 5 mg Q4H PRN Administration Pain, Severe (Pain Scale 7-10) Phenytoin Sodium 300 mg 09/03/20 09:00 09/07/20 14:37 Phenytoin Sodium Extended 100 Mg Capsule PO 300 mg DAILY [facility] Administration Polyethylene Glycol 17 gm 09/06/20 10:40 09/07/20 14:45 Polyethylene Glycol 3350 17 Gm Powd.Pack PO 17 gm DAILY [facility] Administration Prednisone 5 mg 09/01/20 09:00 09/07/20 14:39 Prednisone 5 Mg Tablet PO 5 mg DAILY [facility] Administration Senna 17.2 mg 09/01/20 03:56 Sennosides 8.6 Mg Tablet PO BEDTIME PRN Constipation Senna 17.2 mg 09/07/20 09:00 09/07/20 14:39 Sennosides 8.6 Mg Tablet PO 17.2 mg DAILY [facility]TAR Administration Sodium Chloride 3 ml 09/01/20 08:00 09/07/20 08:27 0.9 % Sodium Chloride Flush 3 Ml Syringe IVFLUSH 3 ml QSHIFT [facility]TAR Administration Zinc Acetate/Diphenhydramine 1 appl 09/06/20 11:30 09/06/20 20:01 Diphenhydramine Hcl 2 % Cream 28 Gm Tube TOPICAL 1 appl TID PRN Administration pruritis Protocol Labs CBC & Chem 7: 09/07/20 05:14 09/07/20 05:14 Labs: Laboratory Results - last 24 hr 09/07/20 09/07/20 05:14 05:14 WBC 5.8 RBC 3.53 L Hgb 11.0 L Hct 34.8 L MCV 98.6 H MCH 31.2 MCHC 31.6 RDW 13.0 Plt Count 233 MPV 9.2 L Absolute Nucleated RBC 0.000 Nucleated RBC % (auto) 0.0 Sodium 139 Potassium 4.1 Chloride 99 Carbon Dioxide 29 Anion Gap 15 BUN 10 Creatinine 0.50 Estim Creat Clear Calc 60.1 Estimated GFR > 60 Fasting Glucose 98 Calcium 8.0 L Quality Stroke Does the patient have a stroke diagnosis?: No VTE Prior VTE?: No VTE Risk Level:: Medical - moderate - high VTE Device Contraindication: N/A - Device Ordered VTE Drug Contraindication: N/A - Med Ordered Assessment and Plan (1) Arthritis: (2) Fall: Status: Acute Assessment and Plan: 84F presented with fall, found to have sacral fracture, copmlicated by episode of fever fever no fever for the last 2 days likely due to injury, not infection holding antibiotics culture negative sacral fracture Intractable pain, discontinue morphine, decreased Dilaudid continue as needed oxy Spoke with IR, to arrange for kyphoplasty tomorrow PT needs better control prior to snf transfer Amaya catheter in place Constipation No bowel movement in 4 days Start Colace with the ID, senna continue miralax seizure disorder phenytoin 300mg ER daily RA prednisone COPD stable DVT PPX Heparin
[2020-09-07 16:12] LABS: Prothrombin Time 12.1 SEC (10.8-13.0)
[2020-09-08] VITALS (12 sets, daily range): BP systolic 101–176; BP diastolic 62–89; PULSE 69–87; RESP 16–20; TEMP 36.1–36.7; O2SAT 94–98
[2020-09-08] MEDS: 0.9 % Sodium Chloride Flush 3 ML SYRINGE IVFLUSH ×4 (01:19→22:10)
[2020-09-08] MEDS: HYDROmorphone HCl 0.5 MG/0.5 ML SYRINGE IVPUSH ×2 (03:24→22:08)
--- NOTE | 2020-09-08 06:17 | PC.NURSE ---
Gave report to Aarti from Short Stay Surgery, patient is going down for Kyphoplasty at 7am this morning
--- NOTE | 2020-09-08 07:20 | HO.ANESPROP2 ---
FORM[facility] Active Problems Active Problems: All Active Problems (Updated 09/03/20 @ 12:01 by Chip Matta MD) Atrial arrhythmia (Acute) Closed intertrochanteric fracture (Acute) Syncope (Acute) Left knee pain (Acute) Osteoarthritis of left knee (Acute) Smoker (Acute) Screening for diabetes mellitus (DM) (Acute) Screening for hypothyroidism (Acute) Screening for hypercholesterolemia (Acute) Fall (Acute) Lower back pain (Acute) Fever (Acute) Seizure disorder (Acute) Past Medical History Medical History Arthritis Hx of fracture of hip Seizure disorder Smoker Family History Family History Sister Leukemia Surgical History Surgical History History of neck surgery Social History Social History Household Members: None Housing: House Are you a primary home care giver to a significant other at home: No Do you presently have visiting nurse or other home services: No Alcohol intake: current Patient Tobacco Use Status: Current everyday Tobacco user Tobacco use type: Cigarette Cigarettes Per Day: 10 Years Smoked: 50 Smoked in Last 30 Days: Yes e-Cigarette/Vaping Use: Never Used Patient Interested in Nicotine Replacement: No Patient Given Instructions on How to Stop Smoking: No (pt refused) Second Hand Smoke Exposure: No Use of substances other than those prescribed or required for medical reasons: No Currently Displaying Signs/Symptoms of Drug Intoxication Withdrawal: No Have you been hit, kicked, punched, or otherwise hurt by someone within the past year? If so, by whom?: No Do you feel safe in your current relationship?: No Is there a partner from a previous relationship who is making you feel unsafe now?: No Are you made to feel afraid or neglected: No Are you DNR?: No Advance Directives: No Advance Directives Information Provided: No Do you have thoughts of harming others: None Do you have a plan to hurt others: No Plan Recently lost weight without trying: No Patient : No : No Poor oral hygiene: No service: No Current occupational status: retired Meds Allergies Allergy/AdvReac Type Severity Reaction Status Date / Time No Known Allergies Allergy Verified 09/02/20 09:04 [No Known Allergies*] Active Medications: Current Medications Generic Name Dose Route Start Last Admin Trade Name Freq PRN Reason Stop Dose Admin Acetaminophen 650 mg 09/01/20 03:56 09/02/20 09:25 Acetaminophen 325 Mg Tablet PO 650 mg Q6H PRN Administration Pain, Mild (Pain Scale 1-3) Acetaminophen 650 mg 09/07/20 08:30 09/08/20 01:19 Acetaminophen 325 Mg Tablet PO Not Given Q6H [facility] Docusate Sodium 100 mg 09/07/20 09:00 09/07/20 22:09 Docusate Sodium 100 Mg Capsule PO Not Given BID [facility] Heparin Sodium (Porcine) 5,000 unit 09/07/20 20:30 09/07/20 22:00 Heparin Sodium,Porcine 5,000 Unit/Ml Vial SUBCUT 5,000 unit Q12H [facility] Administration Hydromorphone HCl 0.5 mg 09/07/20 10:53 09/08/20 03:24 Hydromorphone Hcl 0.5 Mg/0.5 Ml Syringe IVPUSH 0.5 mg Q4H PRN Administration Pain, Severe (Pain Scale 7-10) Metoprolol Tartrate 25 mg 09/03/20 12:00 09/07/20 22:09 Metoprolol Tartrate 25 Mg Tablet PO Not Given BID [facility] Protocol Oxycodone HCl 5 mg 09/07/20 10:53 09/07/20 14:37 Oxycodone Hcl Immed Release 5 Mg Tablet PO 5 mg Q4H PRN Administration Pain, Severe (Pain Scale 7-10) Phenytoin Sodium 300 mg 09/03/20 09:00 09/07/20 14:37 Phenytoin Sodium Extended 100 Mg Capsule PO 300 mg DAILY AVTAR Administration Polyethylene Glycol 17 gm 09/06/20 10:40 09/07/20 14:45 Polyethylene Glycol 3350 17 Gm Powd.Pack PO 17 gm DAILY AVTAR Administration Prednisone 5 mg 09/01/20 09:00 09/07/20 14:39 Prednisone 5 Mg Tablet PO 5 mg DAILY [facility]TAR Administration Senna 17.2 mg 09/01/20 03:56 Sennosides 8.6 Mg Tablet PO BEDTIME PRN Constipation Senna 17.2 mg 09/07/20 09:00 09/07/20 14:39 Sennosides 8.6 Mg Tablet PO 17.2 mg DAILY AVTAR Administration Sodium Chloride 3 ml 09/01/20 08:00 09/08/20 01:19 0.9 % Sodium Chloride Flush 3 Ml Syringe IVFLUSH 3 ml QSHIFT AVTAR Administration Zinc Acetate/Diphenhydramine 1 appl 09/06/20 11:30 09/06/20 20:01 Diphenhydramine Hcl 2 % Cream 28 Gm Tube TOPICAL 1 appl TID PRN Administration pruritis Protocol Exam Exam Date and Time: September 08, 2020 0720 Height,Weight and Vital Signs: Height 5 ft Weight 47.627 kg Last Vital Signs Temp 97.3 F 09/08/20 03:06 Pulse 69 09/08/20 03:06 Resp 16 09/08/20 03:24 BP 124/65 09/08/20 03:06 Pulse Ox 97 09/08/20 03:06 Pertinent Lab Results Pertinent Lab Results: Laboratory Tests 08/31/20 08/31/20 08/31/20 20:22 21:21 21:21 WBC 13.7 H RBC 4.41 D Hgb 13.8 D Hct 43.1 D MCV 97.7 MCH 31.3 MCHC 32.0 RDW 13.2 Plt Count 255 MPV 8.7 L Immature Gran % (Auto) 1.1 H Neut % (Auto) 86.3 H Lymph % (Auto) 8.7 L [place] % (Auto) 3.2 Eos % (Auto) 0.4 Baso % (Auto) 0.3 Lymph # (Auto) 1.2 [place] # (Auto) 0.4 Eos # (Auto) 0.1 Baso # (Auto) 0.0 Abs Immat Gran (auto) 0.15 H Absolute Neuts (auto) 11.8 H Absolute Nucleated RBC 0.000 Nucleated RBC % (auto) 0.0 PT 12.8 INR 1.1 D-Dimer 18061 Sodium 137 Potassium 4.6 Chloride 100 Carbon Dioxide 27 Anion Gap 15 BUN 15 Creatinine 0.60 Estim Creat Clear Calc 50.1 Estimated GFR > 60 Random Glucose 145 H Fasting Glucose Lactic Acid Calcium 8.7 D Total Bilirubin 0.6 Direct Bilirubin AST 38 H ALT 48 H Alkaline Phosphatase 223 H Total Protein 7.9 Albumin 3.1 L TSH Urine Color Urine Appearance Urine pH Ur Specific [place] Urine Protein Urine Glucose (UA) Urine Ketones Urine Blood Urine Nitrite Ur Leukocyte Esterase Coronavirus (PCR) Influenza Type A (PCR) Influenza Type B (PCR) RSV RNA Qual (PCR) 09/01/20 09/01/20 09/01/20 00:52 00:52 00:52 WBC 12.5 H RBC 4.17 L Hgb 13.1 Hct 40.6 MCV 97.4 MCH 31.4 MCHC 32.3 RDW 13.2 Plt Count 231 MPV 8.5 L Immature Gran % (Auto) 1.0 H Neut % (Auto) 85.8 H Lymph % (Auto) 7.6 L [place] % (Auto) 5.2 Eos % (Auto) 0.1 Baso % (Auto) 0.3 Lymph # (Auto) 1.0 L [place] # (Auto) 0.7 Eos # (Auto) 0.0 Baso # (Auto) 0.0 Abs Immat Gran (auto) 0.12 H Absolute Neuts (auto) 10.7 H Absolute Nucleated RBC 0.000 Nucleated RBC % (auto) 0.0 PT INR D-Dimer Sodium 138 Potassium 4.3 Chloride 101 Carbon Dioxide 25 Anion Gap 16 BUN 14 Creatinine 0.62 Estim Creat Clear Calc 48.5 Estimated GFR > 60 Random Glucose 149 H Fasting Glucose Lactic Acid 1.8 Calcium 8.5 Total Bilirubin 0.6 Direct Bilirubin 0.4 AST 40 H ALT 50 H Alkaline Phosphatase 224 H Total Protein 7.8 Albumin 3.1 L TSH Urine Color Urine Appearance Urine pH Ur Specific [place] Urine Protein Urine Glucose (UA) Urine Ketones Urine Blood Urine Nitrite Ur Leukocyte Esterase Coronavirus (PCR) Influenza Type A (PCR) Influenza Type B (PCR) RSV RNA Qual (PCR) 09/01/20 09/01/20 09/01/20 02:08 02:17 08:24 WBC 7.9 RBC 3.69 L Hgb 11.5 L Hct 36.3 L MCV 98.4 H MCH 31.2 MCHC 31.7 RDW 13.2 Plt Count 188 MPV 8.7 L Immature Gran % (Auto) 0.5 H Neut % (Auto) 78.0 H Lymph % (Auto) 13.9 L [place] % (Auto) 6.5 Eos % (Auto) 0.8 Baso % (Auto) 0.3 Lymph # (Auto) 1.1 L [place] # (Auto) 0.5 Eos # (Auto) 0.1 Baso # (Auto) 0.0 Abs Immat Gran (auto) 0.04 H Absolute Neuts (auto) 6.1 Absolute Nucleated RBC 0.000 Nucleated RBC % (auto) 0.0 PT INR D-Dimer Sodium Potassium Chloride Carbon Dioxide Anion Gap BUN Creatinine Estim Creat Clear Calc Estimated GFR Random Glucose Fasting Glucose Lactic Acid Calcium Total Bilirubin Direct Bilirubin AST ALT Alkaline Phosphatase Total Protein Albumin TSH Urine Color YELLOW Urine Appearance CLEAR Urine pH 6.0 Ur Specific [place] 1.020 Urine Protein TRACE Urine Glucose (UA) NEG Urine Ketones 15 Urine Blood NEG Urine Nitrite NEG Ur Leukocyte Esterase NEG Coronavirus (PCR) NEGATIVE Influenza Type A (PCR) NEGATIVE Influenza Type B (PCR) NEGATIVE RSV RNA Qual (PCR) NEGATIVE 09/01/20 09/02/20 09/02/20 08:24 04:49 04:49 WBC 6.3 RBC 3.85 L Hgb 11.9 L Hct 37.8 MCV 98.2 H MCH 30.9 MCHC 31.5 RDW 13.2 Plt Count 172 MPV 8.8 L Immature Gran % (Auto) Neut % (Auto) Lymph % (Auto) [place] % (Auto) Eos % (Auto) Baso % (Auto) Lymph # (Auto) [place] # (Auto) Eos # (Auto) Baso # (Auto) Abs Immat Gran (auto) Absolute Neuts (auto) Absolute Nucleated RBC 0.000 Nucleated RBC % (auto) 0.0 PT INR D-Dimer Sodium 138 137 Potassium 3.7 4.2 Chloride 104 104 Carbon Dioxide 26 23 Anion Gap 12 14 BUN 11 10 Creatinine 0.54 0.49 L Estim Creat Clear Calc 55.7 61.4 Estimated GFR > 60 > 60 Random Glucose 120 H Fasting Glucose 99 Lactic Acid Calcium 7.8 L D 7.9 L Total Bilirubin Direct Bilirubin AST ALT Alkaline Phosphatase Total Protein Albumin TSH Urine Color Urine Appearance Urine pH Ur Specific [place] Urine Protein Urine Glucose (UA) Urine Ketones Urine Blood Urine Nitrite Ur Leukocyte Esterase Coronavirus (PCR) Influenza Type A (PCR) Influenza Type B (PCR) RSV RNA Qual (PCR) 09/03/20 09/03/20 09/03/20 05:53 05:53 05:53 WBC 6.5 RBC 3.82 L Hgb 11.9 L Hct 36.8 L MCV 96.3 MCH 31.2 MCHC 32.3 RDW 12.9 Plt Count 213 MPV 9.4 Immature Gran % (Auto) Neut % (Auto) Lymph % (Auto) [place] % (Auto) Eos % (Auto) Baso % (Auto) Lymph # (Auto) [place] # (Auto) Eos # (Auto) Baso # (Auto) Abs Immat Gran (auto) Absolute Neuts (auto) Absolute Nucleated RBC 0.000 Nucleated RBC % (auto) 0.0 PT INR D-Dimer Sodium 137 Potassium 3.7 Chloride 102 Carbon Dioxide 27 Anion Gap 12 BUN 12 Creatinine 0.50 Estim Creat Clear Calc 60.1 Estimated GFR > 60 Random Glucose Fasting Glucose 98 Lactic Acid Calcium 8.1 L Total Bilirubin Direct Bilirubin AST ALT Alkaline Phosphatase Total Protein Albumin TSH 1.49 Urine Color Urine Appearance Urine pH Ur Specific [place] Urine Protein Urine Glucose (UA) Urine Ketones Urine Blood Urine Nitrite Ur Leukocyte Esterase Coronavirus (PCR) Influenza Type A (PCR) Influenza Type B (PCR) RSV RNA Qual (PCR) 09/07/20 09/07/20 09/07/20 05:14 05:14 15:56 WBC 5.8 RBC 3.53 L Hgb 11.0 L Hct 34.8 L MCV 98.6 H MCH 31.2 MCHC 31.6 RDW 13.0 Plt Count 233 MPV 9.2 L Immature Gran % (Auto) Neut % (Auto) Lymph % (Auto) [place] % (Auto) Eos % (Auto) Baso % (Auto) Lymph # (Auto) [place] # (Auto) Eos # (Auto) Baso # (Auto) Abs Immat Gran (auto) Absolute Neuts (auto) Absolute Nucleated RBC 0.000 Nucleated RBC % (auto) 0.0 PT 12.1 INR 1.0 D-Dimer Sodium 139 Potassium 4.1 Chloride 99 Carbon Dioxide 29 Anion Gap 15 BUN 10 Creatinine 0.50 Estim Creat Clear Calc 60.1 Estimated GFR > 60 Random Glucose Fasting Glucose 98 Lactic Acid Calcium 8.0 L Total Bilirubin Direct Bilirubin AST ALT Alkaline Phosphatase Total Protein Albumin TSH Urine Color Urine Appearance Urine pH Ur Specific [place] Urine Protein Urine Glucose (UA) Urine Ketones Urine Blood Urine Nitrite Ur Leukocyte Esterase Coronavirus (PCR) Influenza Type A (PCR) Influenza Type B (PCR) RSV RNA Qual (PCR) Airway Mallampati Class: II TM Dist: >3cm Neck ROM: Limited Heart: RRR Lungs: CTA Assessment and Plan Assessment Anesthesia Assessment: Anesthesia Plan Discussed and Chart Reviewed Final Anesthetic Review NPO: Yes ASA Class: III Final Preanesthetic Review: Meds/Allgs Chart Reviewed, Consent Obtained/Reviewed and Anes Risks/Benef Reviewed Patient Risk: Intermediate Procedure Risk: Low Anesthetic Plan Anesthetic Plan: MAC: Disposition: Standard PACU
--- NOTE | 2020-09-08 07:32 | PC.NURSE ---
anesthesia aware of b/p
[2020-09-08] MEDS: ceFAZolin Sodium/Dextrose,Iso 2 GM/50 ML PIGGYBACK IV (07:50)
--- NOTE | 2020-09-08 07:52 | PC.NURSE ---
pt sts had the covid vaccine
[2020-09-08] MEDS: Lidocaine HCl 1 % MPF 5 ML VIAL SUBCUT (11:54)
--- NOTE | 2020-09-08 13:08 | MHC.CM.PN ---
PER MD ROUNDS. PT HAD KYPHOPLASTY PROCEDURE THIS MORNING AND IS EXPECTED TO BE CLEARED FOR STR PLACEMENT TOMORROW (09/09/20). PT ADMISSION IS BEING FOLLOWED BY [facility]REFERRED [facility]AC[facility] AND, PER LIAISON, THEY WILL HAVE A BED FOR HER AT THAT TIME. CURRENT PLAN IS DC TO [facility] TOMORROW VIA S
--- NOTE | 2020-09-08 15:10 | HO.PM.IMPN ---
Subjective Subjective Date of Service: 09/08/20 Interval History: the patient was seen and evaluated this morning Laying in bed, Pain under better controlled, in mild distress Denies any fever, chills or shortness of breath No reported other overnight events. Systemic review: No fever, chills No chest pain, palpitation No shortness of breath or coughing No abdominal pain, nausea or vomiting No urinary symptoms No any rash or wounds Physical Exam Vital Signs: Vital Signs: Last Vital Signs Temp 98.1 F 09/08/20 15:07 Pulse 75 09/08/20 15:07 Resp 18 09/08/20 15:07 BP 139/68 09/08/20 15:07 Pulse Ox 98 09/08/20 15:07 Body Mass Index 20.5 Const: Other: Constitutional : Alert , oriented, in mild distress from the pain Neck : Normal inspection, Supple Cardiovascular : RRR, S1 S2, no lower extremity edema Respiratory : Good bilateral air entry, no crackles, wheezes or rhonchi Gastrointestinal: soft, lax, Normal bowel sounds, Non tender Skin : Warm/Dry, No rash Neurological : Alert, No focal deficit Objective Data Current Medications Generic Name Dose Route Start Last Admin Trade Name Freq PRN Reason Stop Dose Admin Acetaminophen 650 mg 09/01/20 03:56 09/02/20 09:25 Acetaminophen 325 Mg Tablet PO 650 mg Q6H PRN Administration Pain, Mild (Pain Scale 1-3) Acetaminophen 650 mg 09/07/20 08:30 09/08/20 08:30 Acetaminophen 325 Mg Tablet PO Not Given Q6H [facility] Albuterol Sulfate 2.5 mg 09/08/20 07:44 Albuterol Sulfate (0.083%) 2.5 Mg/3 Ml Vial.Neb INHALE ONCE PRN Wheezing Docusate Sodium 100 mg 09/07/20 09:00 09/08/20 09:00 Docusate Sodium 100 Mg Capsule PO Not Given BID [facility]TAR Fentanyl 25 mcg 09/08/20 07:44 Fentanyl Citrate/Pf 100 Mcg/2 Ml Vial IVPUSH Q5M PRN Pain, Moderate (Pain Scale 4-6 Heparin Sodium (Porcine) 5,000 unit 09/07/20 20:30 09/08/20 11:09 Heparin Sodium,Porcine 5,000 Unit/Ml Vial SUBCUT Not Given Q12H [facility] Hydromorphone HCl 0.5 mg 09/07/20 10:53 09/08/20 03:24 Hydromorphone Hcl 0.5 Mg/0.5 Ml Syringe IVPUSH 0.5 mg Q4H PRN Administration Pain, Severe (Pain Scale 7-10) Metoprolol Tartrate 25 mg 09/03/20 12:00 09/08/20 11:07 Metoprolol Tartrate 25 Mg Tablet PO Not Given BID [facility] Protocol Ondansetron HCl 4 mg 09/08/20 07:44 Ondansetron Hcl 4 Mg/2 Ml Vial IVPUSH ONCE PRN Nausea and Vomiting Oxycodone HCl 5 mg 09/07/20 10:53 09/07/20 14:37 Oxycodone Hcl Immed Release 5 Mg Tablet PO 5 mg Q4H PRN Administration Pain, Severe (Pain Scale 7-10) Phenytoin Sodium 300 mg 09/03/20 09:00 09/08/20 11:10 Phenytoin Sodium Extended 100 Mg Capsule PO Not Given DAILY [facility] Polyethylene Glycol 17 gm 09/06/20 10:40 09/08/20 09:00 Polyethylene Glycol 3350 17 Gm Powd.Pack PO Not Given DAILY [facility] Prednisone 5 mg 09/01/20 09:00 09/08/20 11:12 Prednisone 5 Mg Tablet PO Not Given DAILY [facility] Senna 17.2 mg 09/01/20 03:56 Sennosides 8.6 Mg Tablet PO BEDTIME PRN Constipation Senna 17.2 mg 09/07/20 09:00 09/08/20 09:00 Sennosides 8.6 Mg Tablet PO Not Given DAILY [facility] Sodium Chloride 3 ml 09/01/20 08:00 09/08/20 11:17 0.9 % Sodium Chloride Flush 3 Ml Syringe IVFLUSH 3 ml QSHIFT [facility] Administration Zinc Acetate/Diphenhydramine 1 appl 09/06/20 11:30 09/06/20 20:01 Diphenhydramine Hcl 2 % Cream 28 Gm Tube TOPICAL 1 appl TID PRN Administration pruritis Protocol Labs CBC & Chem 7: 09/07/20 05:14 09/07/20 05:14 Labs: Laboratory Results - last 24 hr 09/07/20 15:56 PT 12.1 INR 1.0 Quality Stroke Does the patient have a stroke diagnosis?: No VTE Prior VTE?: No VTE Risk Level:: Medical - moderate - high VTE Device Contraindication: N/A - Device Ordered VTE Drug Contraindication: N/A - Med Ordered Assessment and Plan (1) Arthritis: (2) Fall: Status: Acute Assessment and Plan: 84F presented with fall, found to have sacral fracture, copmlicated by episode of fever sacral fracture Intractable pain, discontinue morphine, decreased Dilaudid continue as needed oxy kyphoplasty done, monitor response PT Amaya catheter in place Constipation No bowel movement in 5 days continue Colace with the ID, senna continue miralax seizure disorder phenytoin 300mg ER daily RA prednisone COPD stable fever no fever for the last 3 days likely due to injury, not infection holding antibiotics culture negative DVT PPX Heparin
[2020-09-09] VITALS (11 sets, daily range): BP systolic 135–158; BP diastolic 68–80; PULSE 71–128; RESP 15–22; TEMP 36.3–38.8; O2SAT 94–97
[2020-09-09] MEDS: HYDROmorphone HCl 0.5 MG/0.5 ML SYRINGE IVPUSH ×4 (03:48→21:10)
[2020-09-09] MEDS: 0.9 % Sodium Chloride Flush 3 ML SYRINGE IVFLUSH ×3 (09:05→21:14)
[2020-09-09] MEDS: predniSONE 5 MG TABLET PO (09:11)
[2020-09-09] MEDS: Phenytoin Sodium Extended 100 MG CAPSULE 300 MG PO (09:12)
[2020-09-09] MEDS: Heparin Sodium,Porcine 5,000 UNIT/ML VIAL 5000 UNIT SUBCUT ×2 (09:12→21:12)
[2020-09-09] MEDS: Acetaminophen 325 MG TABLET 650 MG PO ×2 (09:16→21:13)
[2020-09-09] MEDS: Sennosides 8.6 MG TABLET 17.2 MG PO (09:16)
[2020-09-09] MEDS: polyethylene glycoL 3350 17 GM POWD.PACK PO (09:17)
[2020-09-09] MEDS: Metoprolol Tartrate 25 MG TABLET PO ×2 (09:17→21:14)
[2020-09-09] MEDS: Docusate Sodium 100 MG CAPSULE PO ×2 (09:36→21:13)
--- NOTE | 2020-09-09 09:38 | HO.POSTANES ---
Post Anesthesia Evaluation Post Anesthesia Evaluation Vital Signs: Vital Signs Temp Pulse Resp BP Pulse Ox 09/09/20 09:17 82 150/70 H 09/09/20 08:57 85 158/70 H 96 09/09/20 06:52 98 F 85 20 158/70 H 96 09/09/20 03:37 97.7 F 79 17 135/68 97 09/08/20 23:05 97.0 F 77 16 124/64 98 09/08/20 22:08 20 09/08/20 21:53 74 141/68 H Anesthesia: Monitored Mental Status: Awake Pain Control: Satisfactory Nausea/Vomiting: None Hydration: Adequate Anesthesia-Related Issues: No Anes. Related Issues
--- NOTE | 2020-09-09 13:13 | MHC.CM.PN ---
PER MD ROUNDS, PT NOT READY TO DC TODAY. KYPHOPLASTY COMPLETED YESTERDAY, PAIN STILL NOT CONTROLLED AND PT CONSTIPATED. CM SPOKE TO PTS NIECE/HCP, ALEIDA CAMPA AND UPDATED HER ON PT STATUS AND PLAN TO DC OVER THE WEEKEND. ALEIDA REPORTED SHE WAS IN TO SEE THE PT THIS MORNING AND FELT SHE WAS LOOKING MUCH BETTER THAN PREVIOUS DAYS. CM WILL UPDATE HER WHEN PT IS CLEARED FOR DC. CURRENT DC PLAN IS [facility] FOR [facility] VIA [facility]
[2020-09-09] MEDS: Glycerin Adult SUPP.RECT 1 SUPP PR (13:51)
[2020-09-09] MEDS: Lactulose 20 GM/30 ML SOLUTION 30 GM PO (13:52)
--- NOTE | 2020-09-09 13:55 | HO.PM.IMPN ---
Subjective Subjective Date of Service: 09/09/20 Interval History: the patient was seen and evaluated this morning Laying in bed, still complaining of significant pain in her back No bowel movement for 5 days now, refusing laxatives on multiple occasions Denies any fever, chills or shortness of breath No reported other overnight events. Systemic review: No fever, chills No chest pain, palpitation No shortness of breath or coughing No abdominal pain, nausea or vomiting No urinary symptoms No any rash or wounds Physical Exam Vital Signs: Vital Signs: Last Vital Signs Temp 98 F 09/09/20 10:53 Pulse 85 09/09/20 10:53 Resp 20 09/09/20 10:53 BP 141/80 H 09/09/20 10:53 Pulse Ox 96 09/09/20 10:53 Body Mass Index 20.5 Const: Other: Constitutional : Alert , oriented, in mild distress from the pain Neck : Normal inspection, Supple Cardiovascular : RRR, S1 S2, no lower extremity edema Respiratory : Good bilateral air entry, no crackles, wheezes or rhonchi Gastrointestinal: soft, lax, Normal bowel sounds, Non tender Skin : Warm/Dry, No rash Neurological : Alert, No focal deficit Objective Data Current Medications Generic Name Dose Route Start Last Admin Trade Name Freq PRN Reason Stop Dose Admin Acetaminophen 650 mg 09/01/20 03:56 09/02/20 09:25 Acetaminophen 325 Mg Tablet PO 650 mg Q6H PRN Administration Pain, Mild (Pain Scale 1-3) Acetaminophen 650 mg 09/07/20 08:30 09/09/20 09:16 Acetaminophen 325 Mg Tablet PO 650 mg Q6H AVTAR Administration Albuterol Sulfate 2.5 mg 09/08/20 07:44 Albuterol Sulfate (0.083%) 2.5 Mg/3 Ml Vial.Neb INHALE ONCE PRN Wheezing Docusate Sodium 100 mg 09/07/20 09:00 09/09/20 09:36 Docusate Sodium 100 Mg Capsule PO 100 mg BID AVTAR Administration Fentanyl 25 mcg 09/08/20 07:44 Fentanyl Citrate/Pf 100 Mcg/2 Ml Vial IVPUSH Q5M PRN Pain, Moderate (Pain Scale 4-6 Heparin Sodium (Porcine) 5,000 unit 09/07/20 20:30 09/09/20 09:12 Heparin Sodium,Porcine 5,000 Unit/Ml Vial SUBCUT 5,000 unit Q12H AVTAR Administration Hydromorphone HCl 0.5 mg 09/08/20 21:55 09/09/20 13:52 Hydromorphone Hcl 0.5 Mg/0.5 Ml Syringe IVPUSH 0.5 mg Q4H PRN Administration Pain, Severe (Pain Scale 7-10) Metoprolol Tartrate 25 mg 09/03/20 12:00 09/09/20 09:17 Metoprolol Tartrate 25 Mg Tablet PO 25 mg BID AVTAR Administration Protocol Ondansetron HCl 4 mg 09/08/20 07:44 Ondansetron Hcl 4 Mg/2 Ml Vial IVPUSH ONCE PRN Nausea and Vomiting Oxycodone HCl 5 mg 09/07/20 10:53 09/07/20 14:37 Oxycodone Hcl Immed Release 5 Mg Tablet PO 5 mg Q4H PRN Administration Pain, Severe (Pain Scale 7-10) Phenytoin Sodium 300 mg 09/03/20 09:00 09/09/20 09:12 Phenytoin Sodium Extended 100 Mg Capsule PO 300 mg DAILY AVTAR Administration Polyethylene Glycol 17 gm 09/06/20 10:40 09/09/20 09:17 Polyethylene Glycol 3350 17 Gm Powd.Pack PO 17 gm DAILY AVTAR Administration Prednisone 5 mg 09/01/20 09:00 09/09/20 09:11 Prednisone 5 Mg Tablet PO 5 mg DAILY AVTAR Administration Senna 17.2 mg 09/01/20 03:56 Sennosides 8.6 Mg Tablet PO BEDTIME PRN Constipation Senna 17.2 mg 09/07/20 09:00 09/09/20 09:16 Sennosides 8.6 Mg Tablet PO 17.2 mg DAILY AVTAR Administration Sodium Chloride 3 ml 09/01/20 08:00 09/09/20 09:05 0.9 % Sodium Chloride Flush 3 Ml Syringe IVFLUSH 3 ml QSHIFT AVTAR Administration Zinc Acetate/Diphenhydramine 1 appl 09/06/20 11:30 09/06/20 20:01 Diphenhydramine Hcl 2 % Cream 28 Gm Tube TOPICAL 1 appl TID PRN Administration pruritis Protocol Labs CBC & Chem 7: 09/07/20 05:14 09/07/20 05:14 Quality Stroke Does the patient have a stroke diagnosis?: No VTE Prior VTE?: No VTE Risk Level:: Medical - moderate - high VTE Device Contraindication: N/A - Device Ordered VTE Drug Contraindication: N/A - Med Ordered Assessment and Plan (1) Arthritis: (2) Fall: Status: Acute Assessment and Plan: 84F presented with fall, found to have sacral fracture, copmlicated by episode of fever sacral fracture Intractable pain, continue as needed oxy kyphoplasty done, monitor response PT Amaya catheter in place Constipation No bowel movement in 5 days continue Colace with the ID, senna continue miralax to give lactulose and suppository today seizure disorder phenytoin 300mg ER daily RA prednisone COPD stable fever, resolved likely due to injury, not infection culture negative DVT PPX Heparin
[2020-09-09] MEDS: oxyCODONE HCl Immed Release 5 MG TABLET PO (21:11)
[2020-09-09] MEDS: Ketorolac Tromethamine 15 MG/ML VIAL IVPUSH (23:42)
[2020-09-10] VITALS (10 sets, daily range): BP systolic 107–135; BP diastolic 58–78; PULSE 63–78; RESP 12–20; TEMP 36–36.3; O2SAT 92–96
[2020-09-10] MEDS: HYDROmorphone HCl 0.5 MG/0.5 ML SYRINGE IVPUSH ×2 (02:56→08:12)
[2020-09-10] MEDS: Acetaminophen 325 MG TABLET 650 MG PO ×3 (02:57→15:10)
[2020-09-10] MEDS: oxyCODONE HCl Immed Release 5 MG TABLET PO ×3 (02:57→20:24)
[2020-09-10 07:19] LABS: Anion Gap 14 (12-20); Blood Urea Nitrogen 10 mg/dL (9-16); Calcium 7.8 mg/dL (8.4-10.2); Carbon Dioxide 30 mmol/L (22-29); Chloride 96 mmol/L (96-108); Creatinine Clr Calc Pharmacy 53.6; Estimated Glomerular Filt Rate > 60; Glucose Random 92 mg/dL (60-115); Potassium 3.7 mmol/L (3.3-5.1); Sodium 136 mmol/L (135-145)
[2020-09-10] MEDS: Phenytoin Sodium Extended 100 MG CAPSULE 300 MG PO (08:13)
[2020-09-10] MEDS: Sennosides 8.6 MG TABLET 17.2 MG PO (08:13)
[2020-09-10] MEDS: 0.9 % Sodium Chloride Flush 3 ML SYRINGE IVFLUSH ×3 (08:13→20:02)
[2020-09-10] MEDS: Heparin Sodium,Porcine 5,000 UNIT/ML VIAL 5000 UNIT SUBCUT ×2 (08:13→20:02)
[2020-09-10] MEDS: Metoprolol Tartrate 25 MG TABLET PO ×2 (08:14→20:01)
[2020-09-10] MEDS: predniSONE 5 MG TABLET PO (08:14)
[2020-09-10] MEDS: Docusate Sodium 100 MG CAPSULE PO (08:14)
[2020-09-10] MEDS: polyethylene glycoL 3350 17 GM POWD.PACK PO (08:14)
--- NOTE | 2020-09-10 09:56 | MHC.CM.PN ---
CM informed pt is still requiring IV pain medication. Current plan is DC to [facility] once pain is controlled
[2020-09-10] MEDS: Omeprazole 40 MG CAPSULE.DR PO (11:04)
[2020-09-10] MEDS: Ketorolac Tromethamine 15 MG/ML VIAL IVPUSH (11:04)
--- NOTE | 2020-09-10 12:48 | HO.PM.IMPN ---
Subjective Subjective Date of Service: 09/10/20 Interval History: the patient was seen and evaluated this morning Laying in bed, still complaining of significant pain in her back that is requiring IV Dilaudid had small bowel movement last night, 1st in 5 days Denies any fever, chills or shortness of breath No reported other overnight events. Systemic review: No fever, chills No chest pain, palpitation No shortness of breath or coughing No abdominal pain, nausea or vomiting No urinary symptoms No any rash or wounds Physical Exam Vital Signs: Vital Signs: Last Vital Signs Temp 96.8 F 09/10/20 10:53 Pulse 78 09/10/20 10:53 Resp 20 09/10/20 10:53 BP 107/61 09/10/20 10:53 Pulse Ox 94 09/10/20 10:53 Oxygen Flow Rate 1 09/10/20 07:00 Body Mass Index 20.5 Const: Other: Constitutional : Alert , oriented to self and place, in mild distress from the pain Neck : Normal inspection, Supple Cardiovascular : RRR, S1 S2, no lower extremity edema Respiratory : Good bilateral air entry, no crackles, wheezes or rhonchi Gastrointestinal: soft, lax, Normal bowel sounds, Non tender Skin : Warm/Dry, No rash Neurological : Alert, No focal deficit Objective Data Current Medications Generic Name Dose Route Start Last Admin Trade Name Leiq PRN Reason Stop Dose Admin Acetaminophen 650 mg 09/01/20 03:56 09/02/20 09:25 Acetaminophen 325 Mg Tablet PO 650 mg Q6H PRN Administration Pain, Mild (Pain Scale 1-3) Acetaminophen 650 mg 09/07/20 08:30 09/10/20 08:13 Acetaminophen 325 Mg Tablet PO 650 mg Q6H AVTAR Administration Albuterol Sulfate 2.5 mg 09/08/20 07:44 Albuterol Sulfate (0.083%) 2.5 Mg/3 Ml Vial.Neb INHALE ONCE PRN Wheezing Bisacodyl 10 mg 09/09/20 21:00 09/09/20 21:14 Bisacodyl 10 Mg Supp.Rect MO Not Given BEDTIME AVTAR Docusate Sodium 100 mg 09/07/20 09:00 09/10/20 08:14 Docusate Sodium 100 Mg Capsule PO 100 mg BID AVTAR Administration Heparin Sodium (Porcine) 5,000 unit 09/07/20 20:30 09/10/20 08:13 Heparin Sodium,Porcine 5,000 Unit/Ml Vial SUBCUT 5,000 unit Q12H AVTAR Administration Hydromorphone HCl 0.5 mg 09/08/20 21:55 09/10/20 08:12 Hydromorphone Hcl 0.5 Mg/0.5 Ml Syringe IVPUSH 0.5 mg Q4H PRN Administration Pain, Severe (Pain Scale 7-10) Ibuprofen 400 mg 09/10/20 17:00 Ibuprofen 400 Mg Tablet PO TIDWM ON LICENSE OF [facility] Metoprolol Tartrate 25 mg 09/03/20 12:00 09/10/20 08:14 Metoprolol Tartrate 25 Mg Tablet PO 25 mg BID AVTAR Administration Protocol Omeprazole 40 mg 09/10/20 10:15 09/10/20 11:04 Omeprazole 40 Mg Capsule. PO 40 mg DAILY@0630 AVTAR Administration Oxycodone HCl 5 mg 09/07/20 10:53 09/10/20 02:57 Oxycodone Hcl Immed Release 5 Mg Tablet PO 5 mg Q4H PRN Administration Pain, Severe (Pain Scale 7-10) Phenytoin Sodium 300 mg 09/03/20 09:00 09/10/20 08:13 Phenytoin Sodium Extended 100 Mg Capsule PO 300 mg DAILY AVTAR Administration Polyethylene Glycol 17 gm 09/06/20 10:40 09/10/20 08:14 Polyethylene Glycol 3350 17 Gm Powd.Pack PO 17 gm DAILY AVTAR Administration Prednisone 5 mg 09/01/20 09:00 09/10/20 08:14 Prednisone 5 Mg Tablet PO 5 mg DAILY AVTAR Administration Senna 17.2 mg 09/01/20 03:56 Sennosides 8.6 Mg Tablet PO BEDTIME PRN Constipation Senna 17.2 mg 09/07/20 09:00 09/10/20 08:13 Sennosides 8.6 Mg Tablet PO 17.2 mg DAILY ON LICENSE OF [facility] Administration Sodium Chloride 3 ml 09/01/20 08:00 09/10/20 08:13 0.9 % Sodium Chloride Flush 3 Ml Syringe IVFLUSH 3 ml QSHIFT AVTAR Administration Zinc Acetate/Diphenhydramine 1 appl 09/06/20 11:30 09/06/20 20:01 Diphenhydramine Hcl 2 % Cream 28 Gm Tube TOPICAL 1 appl TID PRN Administration pruritis Protocol Labs CBC & Chem 7: 09/07/20 05:14 09/10/20 05:40 Labs: Laboratory Results - last 24 hr 09/10/20 05:40 Sodium 136 Potassium 3.7 Chloride 96 Carbon Dioxide 30 H Anion Gap 14 BUN 10 Creatinine 0.56 Estim Creat Clear Calc 53.6 Estimated GFR > 60 Random Glucose 92 Calcium 7.8 L Imaging Chest x-ray: Radiologist's impression: Impressions Kyphoplasty 09/08/20 08:00 IMPRESSION: Successful fluoroscopy-guided bipedicular approach S1 and S2 sacroplasty performed. Fluoroscopy time: 12.7 minutes. Dose area product: 5065 cGy-cm. CT Sacrum 09/08/20 09:40 IMPRESSION: Adequate amount of cement occupying S1 and S2 vertebra with no cement extravasation seen into the neural foramina or pre or postsacral space. The SI joints are symmetrical. Lumbar spine CT: Radiologist's impression: Impressions Kyphoplasty 09/08/20 08:00 IMPRESSION: Successful fluoroscopy-guided bipedicular approach S1 and S2 sacroplasty performed. Fluoroscopy time: 12.7 minutes. Dose area product: 5065 cGy-cm. CT Sacrum 09/08/20 09:40 IMPRESSION: Adequate amount of cement occupying S1 and S2 vertebra with no cement extravasation seen into the neural foramina or pre or postsacral space. The SI joints are symmetrical. Coccyx x-ray: Radiologist's impression: Impressions Kyphoplasty 09/08/20 08:00 IMPRESSION: Successful fluoroscopy-guided bipedicular approach S1 and S2 sacroplasty performed. Fluoroscopy time: 12.7 minutes. Dose area product: 5065 cGy-cm. CT Sacrum 09/08/20 09:40 IMPRESSION: Adequate amount of cement occupying S1 and S2 vertebra with no cement extravasation seen into the neural foramina or pre or postsacral space. The SI joints are symmetrical. Hip x-rays: Radiologist's impression: Impressions Kyphoplasty 09/08/20 08:00 IMPRESSION: Successful fluoroscopy-guided bipedicular approach S1 and S2 sacroplasty performed. Fluoroscopy time: 12.7 minutes. Dose area product: 5065 cGy-cm. CT Sacrum 09/08/20 09:40 IMPRESSION: Adequate amount of cement occupying S1 and S2 vertebra with no cement extravasation seen into the neural foramina or pre or postsacral space. The SI joints are symmetrical. Quality Stroke Does the patient have a stroke diagnosis?: No VTE Prior VTE?: No VTE Risk Level:: Medical - moderate - high VTE Device Contraindication: N/A - Device Ordered VTE Drug Contraindication: N/A - Med Ordered Assessment and Plan (1) Arthritis: (2) Fall: Status: Acute Assessment and Plan: 84F presented with fall, found to have sacral fracture, copmlicated by episode of fever sacral fracture Intractable pain, continue as needed oxy and Dilaudid Around the clock Tylenol and ibuprofen kyphoplasty done, does not seem to be helping much as the patient complaining of worsening pain Perwick catheter for urine Constipation had multiple small bowel movements overnight continue Colace with the ID, senna continue miralax to give lactulose and suppository today physical deconditioning Secondary to significant pain and inability to ambulate PT evaluation with Plan for SNF placement for physical therapy seizure disorder phenytoin 300mg ER daily RA prednisone COPD stable fever, resolved likely due to injury, not infection culture negative DVT PPX Heparin
--- NOTE | 2020-09-10 13:49 | PC.NURSE ---
Checked on pt frequently thoughout shift, pt sleeping and showed no signs of pain/discomfort. Medicated with pain medication per EMAR. Pt transfered back to bed, did well with 2 assist, no c/o pain at that time, sleeping in bed at this time
[2020-09-10] MEDS: Ibuprofen 400 MG TABLET PO (17:04)
[2020-09-11] MEDS: Acetaminophen 325 MG TABLET 650 MG PO ×2 (01:55→08:21)
[2020-09-11] MEDS: oxyCODONE HCl Immed Release 5 MG TABLET PO ×2 (01:56→08:22)
[2020-09-11 03:45] VITALS: BP 138/67; PULSE 74; RESP 18; TEMP 36.1; O2SAT 93
[2020-09-11] MEDS: Omeprazole 40 MG CAPSULE.DR PO (05:37)
[2020-09-11 07:32] VITALS: BP 129/69; PULSE 74; RESP 16; TEMP 36.2; O2SAT 93
[2020-09-11] MEDS: Docusate Sodium 100 MG CAPSULE PO (08:21)
[2020-09-11] MEDS: Ibuprofen 400 MG TABLET PO ×2 (08:21→12:13)
[2020-09-11] MEDS: predniSONE 5 MG TABLET PO (08:21)
[2020-09-11] MEDS: Sennosides 8.6 MG TABLET 17.2 MG PO (08:21)
[2020-09-11] MEDS: Phenytoin Sodium Extended 100 MG CAPSULE 300 MG PO (08:21)
[2020-09-11 08:22] VITALS: BP 129/69; PULSE 74
[2020-09-11] MEDS: polyethylene glycoL 3350 17 GM POWD.PACK PO (08:22)
[2020-09-11] MEDS: Heparin Sodium,Porcine 5,000 UNIT/ML VIAL 5000 UNIT SUBCUT (08:22)
[2020-09-11] MEDS: Metoprolol Tartrate 25 MG TABLET PO (08:22)
[2020-09-11] MEDS: 0.9 % Sodium Chloride Flush 3 ML SYRINGE IVFLUSH (08:22)
--- NOTE | 2020-09-11 10:43 | MHC.CM.PN ---
Addendum entered by Amparo Nava 09/11/20 10:58: CM RECEIVED A RETURN CALL FROM PTS NIECE/HCP, AMY WHO REPORTS SHE IS COMING IN TO VISIT THE PT NOW SO WILL BE HERE PRIOR TO PTS DC. SHE ALSO INDICATED SHE WOULD CONTACT THE SNF LATER TODAY TO SEE WHAT SHE SHOULD BRING FOR THE PT Original Note: PT CLEARED TO DC TO STR TODAY. CM ATTEMPTED TO CONTACT PTS NIECE/HCP, ALEIDA LOKESH ([phone]) TO INFORM HER OF DC. A VM WAS LEFT WITH DC INFORMATION AND A REQUEST FOR A RETURN CALL. CURRENTLY, [facility] IS THE ONLY FACILITY ON THE PTS LIST OF PREFERENCES THAT IS OFFERING A BED.THE SNF HAS REQUESTED PT BE DISCHARGED AT 1300 HOURS. PT WILL DC TODAY TO [facility] FOR STR VIA BLS AT 1300 HOURS
--- NOTE | 2020-09-11 10:48 | P.DS_ITS ---
DS: Providers Provider Date of Service: 09/11/20 Date of admission: 09/05/20 10:30 Primary care physician: Indio Jenkins PA-C Consults: 09/01/20 03:56 Consult to Infectious Diseases Routine Consulting Provider: Chani Moss Reason for consultation: fever; unknown source 09/02/20 21:57 Consult to Cardiology Routine Consulting Provider: Chip Matta Reason for consultation: SVT DS: Diagnosis Discharge Diagnosis (1) Arthritis: (2) Fall: Status: Acute (3) Atrial arrhythmia: Status: Acute (4) Lower back pain: Status: Acute (5) Sacral fracture: Status: Acute (6) Intractable back pain: Status: Acute (7) Constipation: Status: Acute (8) Physical deconditioning: Status: Acute DS: Medications Discharge Medications Home Medications: Previous Rx's Medication Instructions Recorded acetaminophen 650 mg PO Q6H PRN #14 tab 01/06/20 phenytoin sodium extended 100 mg 300 mg PO DAILY 90 Days #270 cap 05/30/20 capsule prednisone 5 mg tablet 5 mg PO DAILY 90 Days #90 tab 08/30/20 acetaminophen 650 mg PO Q6H 30 Days #240 tab 09/11/20 docusate sodium 100 mg PO BID 30 Days #60 cap 09/11/20 ibuprofen 400 mg PO BIDWM 7 Days #14 tab 09/11/20 metoprolol tartrate 25 mg PO BID 30 Days #60 tab 09/11/20 omeprazole 40 mg PO DAILY@0630 7 Days #7 cap 09/11/20 oxycodone 5 mg PO Q4H PRN #20 tab 09/11/20 polyethylene glycol 3350 17 g PO DAILY 30 Days ea 09/11/20 sennosides [Senna Lax] 17.2 mg PO DAILY 30 Days #60 tab 09/11/20 DS: Summary Hospital Course Hospital Course: admission note HPI 84-year-old female with a past medical history of seizures, arthritis, on chronic prednisone, history of neck surgery presented to the hospital with a chief complaint of fall. Patient reports that she walks with the help of a walker at home. This evening she was walking with a walker and sterilely she slipped, tripped and fell backwards landing on her buttocks. Denies any head strike or loss of consciousness. Denies any seizure-like activity. Patient reported that after the fall she had significant pain in her bilateral hips limiting her mobility. Subsequently came to the ER for further evaluation. Denies any numbness tingling in the legs. Complains of more so in the bilateral buttocks. Denies any low back pain. Patient reports that she is chronically on prednisone and phenytoin at home. Denies any difficulty swallowing. Patient denies any chest pain palpitations lightheadedness or dizziness before or after the episode. Denies any fever chills cough or urinary symptoms. Denies any GI symptoms. Review of all other systems is negative except mentioned above ER course: Per ER team patient noted to have bilateral hip pain. Hip x-rays, lumbar signs PT showed no acute fracture; lumbar spine CT showed chronic degenerative spine changes; nonfocal examination; urinalysis negative, chest x- ray showed no evidence of pneumonia. But patient was noted to be hard and rectal temperature was noted to be 101.2 F; no clear source of infection. Patient had mild leukocytosis. Admitted for observation. Blood cultures have been sent. Hospital course The patient was admitted for evaluation of intractable pain after sustaining fall. CT scan was showing sacral fracture. Treated with pain medications with no much improvement so I did kyphoplasty and she was placed on IV Dilaudid and oral oxycodone with around the clock Tylenol and addition of ibuprofen. Her symptoms improved but continued to have significant amount of pain. Evaluated by Physical therapy who recommended short-term rehab. To continue with Tylenol and Advil around the clock with addition of oxycodone as needed. She was noted to have atrial arrhythmia evaluated by Cardiology who recommended starting metoprolol. had significant amount of constipation without moving her bowels for 5 days. Started on laxatives and suppositories with good response. To continue at time of discharge. Time Spent with Patient Time attestation: Total time spent providing and/or coordinating discharge services: Discharge coordination time: Greater than 30 minutes Quality: Stroke Does the patient have a stroke diagnosis?: No Physical Exam Vital Signs: Vital Signs: Last Vital Signs Temp 97.2 F 09/11/20 07:32 Pulse 74 09/11/20 08:22 Resp 16 09/11/20 07:32 BP 129/69 09/11/20 08:22 Pulse Ox 93 09/11/20 07:32 Oxygen Flow Rate 1 09/10/20 07:00 Body Mass Index 20.5 Const: Other: Constitutional : Alert , oriented to self and place, Not in distress Neck : Normal inspection, Supple Cardiovascular : RRR, S1 S2, no lower extremity edema Respiratory : Good bilateral air entry, no crackles, wheezes or rhonchi Gastrointestinal: soft, lax, Normal bowel sounds, Non tender Skin : Warm/Dry, No rash Neurological : Alert, No focal deficit DS: Data Data Completed and Pending Completed studies during hospitalization [Text1]: Procedures Reposition Left Upper Femur with Intramedullary Internal Fixation Device, Percutaneous Approach (01/02/20) Imaging Chest x-ray: Radiologist's impression: ITS Impressions Hip X-Ray 08/31/20 20:17 IMPRESSION: 1. Osteopenia. 2. No displaced fracture of pelvis or hips. If the pain persists consider CT for follow-up. Sacrum and Coccyx X-Ray 08/31/20 20:17 IMPRESSION: Osteopenia. No displaced fracture of sacrum or coccyx. If pain persists CT may be helpful for further evaluation. Lumbar Spine CT 08/31/20 22:44 IMPRESSION: 1. No focal disc protrusion. 2. 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 Mild narrowing of neural foramina bilaterally L3-L4 and L4-L5. Chest X-Ray 09/01/20 00:25 IMPRESSION: No evidence of pneumonia. Hyperexpanded lungs. Chest CTA 09/01/20 04:32 IMPRESSION: 1. No acute findings in the chest and thoracic spine. No evidence of pulmonary emboli. No appreciable thoracic vertebral body fractures. 2. Moderate to severe pulmonary emphysema. 3. Multilevel degenerative disc disease in the thoracic spine with diffuse idiopathic skeletal hyperostosis in the lower thoracic spine. VTE: negative Head CT 09/01/20 05:52 IMPRESSION: 1. No acute intracranial pathology. 2. No acute fracture or malalignment in the cervical spine. 3. 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 Cervical Spine CT 09/01/20 05:54 IMPRESSION: 1. No acute intracranial pathology. 2. No acute fracture or malalignment in the cervical spine. 3. 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 Pelvis CT 09/01/20 06:10 IMPRESSION: Acute H shaped sacral fracture with sagittal components to the bilateral sacral ala connected by a transverse fracture through the anterior cortex of the of S3 body. There is minimal displacement. No additional pelvic fractures are identified. Thoracic Spine CT 09/01/20 06:10 IMPRESSION: 1. No acute findings in the chest and thoracic spine. No evidence of pulmonary emboli. No appreciable thoracic vertebral body fractures. 2. Moderate to severe pulmonary emphysema. 3. Multilevel degenerative disc disease in the thoracic spine with diffuse idiopathic skeletal hyperostosis in the lower thoracic spine. VTE: negative Venous Duplex 09/03/20 12:42 IMPRESSION: No evidence of deep venous thrombosis in the visualized veins of the bilateral lower extremities. Kyphoplasty 09/08/20 08:00 IMPRESSION: Successful fluoroscopy-guided bipedicular approach S1 and S2 sacroplasty performed. Fluoroscopy time: 12.7 minutes. Dose area product: 5065 cGy-cm. CT Sacrum 09/08/20 09:40 IMPRESSION: Adequate amount of cement occupying S1 and S2 vertebra with no cement extravasation seen into the neural foramina or pre or postsacral space. The SI joints are symmetrical. Lumbar spine CT: Radiologist's impression: ITS Impressions Hip X-Ray 08/31/20 20:17 IMPRESSION: 1. Osteopenia. 2. No displaced fracture of pelvis or hips. If the pain persists consider CT for follow-up. Sacrum and Coccyx X-Ray 08/31/20 20:17 IMPRESSION: Osteopenia. No displaced fracture of sacrum or coccyx. If pain persists CT may be helpful for further evaluation. Lumbar Spine CT 08/31/20 22:44 IMPRESSION: 1. No focal disc protrusion. 2. 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 Mild narrowing of neural foramina bilaterally L3-L4 and L4-L5. Chest X-Ray 09/01/20 00:25 IMPRESSION: No evidence of pneumonia. Hyperexpanded lungs. Chest CTA 09/01/20 04:32 IMPRESSION: 1. No acute findings in the chest and thoracic spine. No evidence of pulmonary emboli. No appreciable thoracic vertebral body fractures. 2. Moderate to severe pulmonary emphysema. 3. Multilevel degenerative disc disease in the thoracic spine with diffuse idiopathic skeletal hyperostosis in the lower thoracic spine. VTE: negative Head CT 09/01/20 05:52 IMPRESSION: 1. No acute intracranial pathology. 2. No acute fracture or malalignment in the cervical spine. 3. 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 Cervical Spine CT 09/01/20 05:54 IMPRESSION: 1. No acute intracranial pathology. 2. No acute fracture or malalignment in the cervical spine. 3. 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 Pelvis CT 09/01/20 06:10 IMPRESSION: Acute H shaped sacral fracture with sagittal components to the bilateral sacral ala connected by a transverse fracture through the anterior cortex of the of S3 body. There is minimal displacement. No additional pelvic fractures are identified. Thoracic Spine CT 09/01/20 06:10 IMPRESSION: 1. No acute findings in the chest and thoracic spine. No evidence of pulmonary emboli. No appreciable thoracic vertebral body fractures. 2. Moderate to severe pulmonary emphysema. 3. Multilevel degenerative disc disease in the thoracic spine with diffuse idiopathic skeletal hyperostosis in the lower thoracic spine. VTE: negative Venous Duplex 09/03/20 12:42 IMPRESSION: No evidence of deep venous thrombosis in the visualized veins of the bilateral lower extremities. Kyphoplasty 09/08/20 08:00 IMPRESSION: Successful fluoroscopy-guided bipedicular approach S1 and S2 sacroplasty performed. Fluoroscopy time: 12.7 minutes. Dose area product: 5065 cGy-cm. CT Sacrum 09/08/20 09:40 IMPRESSION: Adequate amount of cement occupying S1 and S2 vertebra with no cement extravasation seen into the neural foramina or pre or postsacral space. The SI joints are symmetrical. Coccyx x-ray: Radiologist's impression: ITS Impressions Hip X-Ray 08/31/20 20:17 IMPRESSION: 1. Osteopenia. 2. No displaced fracture of pelvis or hips. If the pain persists consider CT for follow-up. Sacrum and Coccyx X-Ray 08/31/20 20:17 IMPRESSION: Osteopenia. No displaced fracture of sacrum or coccyx. If pain persists CT may be helpful for further evaluation. Lumbar Spine CT 08/31/20 22:44 IMPRESSION: 1. No focal disc protrusion. 2. 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 Mild narrowing of neural foramina bilaterally L3-L4 and L4-L5. Chest X-Ray 09/01/20 00:25 IMPRESSION: No evidence of pneumonia. Hyperexpanded lungs. Chest CTA 09/01/20 04:32 IMPRESSION: 1. No acute findings in the chest and thoracic spine. No evidence of pulmonary emboli. No appreciable thoracic vertebral body fractures. 2. Moderate to severe pulmonary emphysema. 3. Multilevel degenerative disc disease in the thoracic spine with diffuse idiopathic skeletal hyperostosis in the lower thoracic spine. VTE: negative Head CT 09/01/20 05:52 IMPRESSION: 1. No acute intracranial pathology. 2. No acute fracture or malalignment in the cervical spine. 3. 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 Cervical Spine CT 09/01/20 05:54 IMPRESSION: 1. No acute intracranial pathology. 2. No acute fracture or malalignment in the cervical spine. 3. 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 Pelvis CT 09/01/20 06:10 IMPRESSION: Acute H shaped sacral fracture with sagittal components to the bilateral sacral ala connected by a transverse fracture through the anterior cortex of the of S3 body. There is minimal displacement. No additional pelvic fractures are identified. Thoracic Spine CT 09/01/20 06:10 IMPRESSION: 1. No acute findings in the chest and thoracic spine. No evidence of pulmonary emboli. No appreciable thoracic vertebral body fractures. 2. Moderate to severe pulmonary emphysema. 3. Multilevel degenerative disc disease in the thoracic spine with diffuse idiopathic skeletal hyperostosis in the lower thoracic spine. VTE: negative Venous Duplex 09/03/20 12:42 IMPRESSION: No evidence of deep venous thrombosis in the visualized veins of the bilateral lower extremities. Kyphoplasty 09/08/20 08:00 IMPRESSION: Successful fluoroscopy-guided bipedicular approach S1 and S2 sacroplasty performed. Fluoroscopy time: 12.7 minutes. Dose area product: 5065 cGy-cm. CT Sacrum 09/08/20 09:40 IMPRESSION: Adequate amount of cement occupying S1 and S2 vertebra with no cement extravasation seen into the neural foramina or pre or postsacral space. The SI joints are symmetrical. Hip x-rays: Radiologist's impression: ITS Impressions Hip X-Ray 08/31/20 20:17 IMPRESSION: 1. Osteopenia. 2. No displaced fracture of pelvis or hips. If the pain persists consider CT for follow-up. Sacrum and Coccyx X-Ray 08/31/20 20:17 IMPRESSION: Osteopenia. No displaced fracture of sacrum or coccyx. If pain persists CT may be helpful for further evaluation. Lumbar Spine CT 08/31/20 22:44 IMPRESSION: 1. No focal disc protrusion. 2. 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 Mild narrowing of neural foramina bilaterally L3-L4 and L4-L5. Chest X-Ray 09/01/20 00:25 IMPRESSION: No evidence of pneumonia. Hyperexpanded lungs. Chest CTA 09/01/20 04:32 IMPRESSION: 1. No acute findings in the chest and thoracic spine. No evidence of pulmonary emboli. No appreciable thoracic vertebral body fractures. 2. Moderate to severe pulmonary emphysema. 3. Multilevel degenerative disc disease in the thoracic spine with diffuse idiopathic skeletal hyperostosis in the lower thoracic spine. VTE: negative Head CT 09/01/20 05:52 IMPRESSION: 1. No acute intracranial pathology. 2. No acute fracture or malalignment in the cervical spine. 3. 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 Cervical Spine CT 09/01/20 05:54 IMPRESSION: 1. No acute intracranial pathology. 2. No acute fracture or malalignment in the cervical spine. 3. 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 Pelvis CT 09/01/20 06:10 IMPRESSION: Acute H shaped sacral fracture with sagittal components to the bilateral sacral ala connected by a transverse fracture through the anterior cortex of the of S3 body. There is minimal displacement. No additional pelvic fractures are identified. Thoracic Spine CT 09/01/20 06:10 IMPRESSION: 1. No acute findings in the chest and thoracic spine. No evidence of pulmonary emboli. No appreciable thoracic vertebral body fractures. 2. Moderate to severe pulmonary emphysema. 3. Multilevel degenerative disc disease in the thoracic spine with diffuse idiopathic skeletal hyperostosis in the lower thoracic spine. VTE: negative Venous Duplex 09/03/20 12:42 IMPRESSION: No evidence of deep venous thrombosis in the visualized veins of the bilateral lower extremities. Kyphoplasty 09/08/20 08:00 IMPRESSION: Successful fluoroscopy-guided bipedicular approach S1 and S2 sacroplasty performed. Fluoroscopy time: 12.7 minutes. Dose area product: 5065 cGy-cm. CT Sacrum 09/08/20 09:40 IMPRESSION: Adequate amount of cement occupying S1 and S2 vertebra with no cement extravasation seen into the neural foramina or pre or postsacral space. The SI joints are symmetrical. Discharge Plan Discharge Patient Disposition: [facility] Discharge Diagnosis: Fall, Sacral fracture Referrals: Joao Sultana [Outside] - 1 Week Indio Jenkins PA-C [Primary Care Provider] - 1 Week Discharge Medications: New sennosides [Senna Lax] 8.6 mg Tablet 17.2 mg PO DAILY 30 Days Qty: 60 RF: 0 acetaminophen 325 mg Tablet 650 mg PO Q6H 30 Days Qty: 240 RF: 0 polyethylene glycol 3350 17 gram Powder In Packet 17 g PO DAILY 30 Days RF: 0 omeprazole 40 mg Capsule,Delayed Release(Dr/Ec) 40 mg PO DAILY@0630 7 Days Qty: 7 RF: 0 ibuprofen 400 mg Tablet 400 mg PO BIDWM 7 Days Qty: 14 RF: 0 docusate sodium 100 mg Capsule 100 mg PO BID 30 Days Qty: 60 RF: 0 oxycodone 5 mg Tablet 5 mg PO Q4H PRN (Reason: Pain, Severe (Pain Scale 7-10)) Qty: 20 RF: 0 metoprolol tartrate 25 mg Tablet 25 mg PO BID 30 Days Qty: 60 RF: 0 Continued acetaminophen 325 mg Tablet 650 mg PO Q6H PRN (Reason: Pain, Mild (Pain Scale 1-3)) Qty: 14 RF: 0 phenytoin sodium extended [Dilantin Extended] 100 mg capsule 300 mg PO DAILY 90 Days Qty: 270 RF: 1 prednisone 5 mg tablet 5 mg PO DAILY 90 Days Qty: 90 RF: 1 Discharge Orders: Discharge Order (Routine); Ordered 09/11/20 Ordered By: Trace Adams Diet: advance to usual diet Activity on Discharge: As tolerated Stand Alone Forms: Patient Portal Discharge page Care Plan Goals: Read below Health Concerns: Read below Plan of Treatment: you were admitted to the hospital after sustaining a fall. Images were c onsistent with a fracture in your sacral bone. Being medications were tried and a procedure known as kyphoplasty was done placing cement at the fracture site. You did improved during the hospital stay and the pain became under better control. You had significant constipation. Responded well to laxatives. Assessment: Continue laxatives as prescribed. Hold for diarrhea. To use oxycodone as needed to use Tylenol and ibuprofen around the clock for the next week at least to do physical therapy at rehab
[2020-09-11 11:26] VITALS: BP 130/81; PULSE 101; RESP 18; TEMP 36.8; O2SAT 96
== END 2020-09-11 13:00 | disposition skilled nursing facility (03) | DRG 516 ==
LOC: HO.ED 09-01 03:20 → HO.EDOVER 09-01 05:10 → HO.IMC 09-01 05:55
PROVIDERS: Emergency Medicine; Internal Medicine; Admitting Provider Hospitalist; Emergency Provider Emergency Medicine Emergency Medical Services; PCP Physician Assistant; Visit Provider Student in an Organized Health Care Education/Training Program
DX: S32.10XA Unspecified fracture of sacrum, initial encounter for closed fracture (principal); I47.1 Supraventricular tachycardia; G40.909 Epilepsy, unspecified, not intractable, without status epilepticus; W01.0XXA Fall on same level from slipping, tripping and stumbling without subsequent striking against object, initial encounter; Y93.9 Activity, unspecified; M06.9 Rheumatoid arthritis, unspecified; K59.00 Constipation, unspecified; J44.9 Chronic obstructive pulmonary disease, unspecified; Y92.009 Unspecified place in unspecified non-institutional (private) residence as the place of occurrence of the external cause; F17.210 Nicotine dependence, cigarettes, uncomplicated; Y99.9 Unspecified external cause status; Z71.6 Tobacco abuse counseling; Z20.822 Contact with and (suspected) exposure to COVID-19; Z79.52 Long term (current) use of systemic steroids; Z79.899 Other long term (current) drug therapy
CPT/HCPCS: 0241U; 22515; 36415; 70450; 71045; 71275; 72125; 72128; 72131; 72192; 72220; 73522; 80048; 80053; 80076; 81003; 83605; 84443; 85025; 85027; 85379; 85610; 87040; 93005; 93306; 93970; 97110; 97116; 97162; 97166; 97530; 97535; 99219; 99285; J0131; J0171; J0330; J0461; J0690; J0696; J1100; J1170; J1885; J2250; J2270; J2370; J2405; J3010; Q9967

== ENCOUNTER 2020-11-19 14:54 | Emergency (ER) | payer MEDICARE, SELFPAY ==
--- NOTE | ~2020-11-19 | XR_ITS ---
EXAMINATION: XR SHOULDER, LEFT CLINICAL INFORMATION: Left shoulder pain. Status post fall. COMPARISON: CT chest 09/01/2020 TECHNIQUE: AP external rotation, Grashey, scapular Y, and axillary views of the left shoulder. FINDINGS: There is a nondisplaced fracture distal lateral clavicle. The AC joint is intact. Mild reduction in the glenohumeral joint space is seen. The soft tissues are normal. XR/XR shoulder LT min 2V IMPRESSION: Nondisplaced fracture lateral distal clavicle.
--- NOTE | 2020-11-19 15:22 | ED.FALL ---
HPI - Fall General Chief Complaint: Fall <PRAMOD Abraham Last Filed: 11/19/20 17:54> Stated Complaint: MECH FALL W/L SHOULDER PAIN <PRAMOD Abraham - Last Filed: 11/19/20 17:54> Time Seen by Provider: 11/19/20 15:18 <PRAMOD Abraham - Last Filed: 11/19/20 17:54> Source: patient and EMS <PRAMOD Abraham Last Filed: 11/19/20 17:54> Mode of arrival: EMS <PRAMOD Abraham Last Filed: 11/19/20 17:54> Limitations: no limitations <PRAMOD Abraham Last Filed: 11/19/20 17:54> History of Present Illness HPI Narrative: 85 y/o female with history of seizures, severe arthritis on chronic prednisone (RA?), history of recurrent falls, hx sacral fracture after a fall s/p recent cementing, hx left hip fracture s/p IMN Dec 2019, COPD, who presents to the ER from home via EMS after she slipped off the couch and fell onto her left arm causing significant pain in her left shoulder. Fall was witnessed by family. She did not hit her head or lose consciousness. No seizure activity. Patient cannot describe how she fell off the cough just reports slipping off of it. She is not on anticoagulation. She denies chest pain or SOB. No syncope. She lives home alone with a lot of services at home. She uses a walker to ambulate. <PRAMOD Abraham - Last Filed: 11/19/20 17:54> MD complaint: fall <PRAMOD Abraham - Last Filed: 11/19/20 17:54> Onset (ago): minute(s) (45) <PRAMOD Abraham Last Filed: 11/19/20 17:54> Fall from: chair <PRAMOD Abraham Last Filed: 11/19/20 17:54> Fall witnessed: yes, by family <PRAMOD Abraham Last Filed: 11/19/20 17:54> Place fall occurred: home <PRAMOD Abraham Last Filed: 11/19/20 17:54> Loss of consciousness: none <PRAMOD Abraham - Last Filed: 11/19/20 17:54> Prolonged down time: no <PRAMOD Abraham - Last Filed: 11/19/20 17:54> Symptoms prior to fall: none <PRAMOD Abraham - Last Filed: 11/19/20 17:54> Context: history of frequent falls <PRAMOD Abraham - Last Filed: 11/19/20 17:54> Location of injury - extremities: left: shoulder <PRAMOD Abraham - Last Filed: 11/19/20 17:54> Severity: severe <PRAMOD Abraham - Last Filed: 11/19/20 17:54> Severity scale (1-10): 9 <PRAMOD Abraham - Last Filed: 11/19/20 17:54> Quality: sharp and aching <PRAMOD Abraham Last Filed: 11/19/20 17:54> Associated symptoms (after fall): denies <PRAMOD Abraham - Last Filed: 11/19/20 17:54> Related Data Home Medications: Home Medications Medication Instructions Recorded Confirmed phenytoin sodium extended 300 mg 300 mg PO DAILY 11/19/20 11/19/20 capsule prednisone 5 mg tablet 5 mg PO DAILY 11/19/20 11/19/20 <PRAMOD Abraham - Last Filed: 11/19/20 17:54> Allergies/Adverse Reactions: Allergies Allergy/AdvReac Type Severity Reaction Status Date / Time No Known Allergies Allergy Verified 11/19/20 21:02 [No Known Allergies*] <PRAMOD Abraham - Last Filed: 11/19/20 17:54> Review of Systems Constitutional: Constitutional: Denies chills, Denies fever(s), Reports frequent falls and Denies headache(s) <PRAMOD Abraham Last Filed: 11/19/20 17:54> Eyes: Eyes: Reports no additional eye complaints <PRAMOD Abraham Last Filed: 11/19/20 17:54> ENT: Reports Normal hearing present, Denies dizziness, Denies headache(s), Denies neck pain and Denies sore throat <PRAMOD Abraham Last Filed: 11/19/20 17:54> Cardiovascular: Cardiovascular: Denies chest pain, Denies lightheadedness and Denies dyspnea <PRAMOD Abraham Last Filed: 11/19/20 17:54> Respiratory: Respiratory: Denies chest congestion, Denies cough and Denies dyspnea <PRAMOD Abraham Last Filed: 11/19/20 17:54> Gastrointestinal: Gastrointestinal: Denies abdominal pain, Denies diarrhea, Denies nausea and Denies vomiting <PRAMOD Abraham Last Filed: 11/19/20 17:54> Musculoskeletal: Musculoskeletal: Denies back pain, Denies myalgias, Reports arthralgias, Reports limited range of motion, Denies neck pain and Reports stiffness <PRAMOD Abraham Last Filed: 11/19/20 17:54> Integumentary/Breasts: Skin/Breast: Denies erythema and Denies rash <PRAMOD Abraham Last Filed: 11/19/20 17:54> Neurologic: Reports Normal hearing present, Denies dizziness, Reports frequent falls, Denies headache(s), Denies focal weakness, Denies convulsions and Denies seizure-like activity <PRAMOD Abraham Last Filed: 11/19/20 17:54> Hematologic/Lymphatic: Hematologic/Lymphatic: Denies easy bleeding and Denies easy bruising <PRAMOD Abraham Last Filed: 11/19/20 17:54> [facility] Past Medical History Medical History: Medical History Arthritis Atrial arrhythmia Hx of fracture of hip Lower back pain Seizure disorder Smoker <PRAMOD Abraham Last Filed: 11/19/20 17:54> Surgical History: Surgical History History of neck surgery <PRAMOD Abraham Last Filed: 11/19/20 17:54> Family History Family History: Family History Sister Leukemia <PRAMOD Abraham Last Filed: 11/19/20 17:54> Social History Social History: Social History Household Members: None Housing: House Are you a primary care assistant to a significant other at home: No Do you presently have visiting nurse or other home services: No Alcohol intake: current Patient Tobacco Use Status: Current everyday Tobacco user Tobacco use type: Cigarette Cigarettes Per Day: 10 Years Smoked: 50 e-Cigarette/Vaping Use: Never Used Second Hand Smoke Exposure: No Advance Directives: No service: No Current occupational status: retired <PRAMOD Abraham - Last Filed: 11/19/20 17:54> Physical Exam Vital Signs: Vital Signs: Last Vital Signs Temp 98.7 F 11/19/20 21:01 Pulse 74 11/20/20 00:24 Resp 15 11/20/20 00:24 BP 120/73 11/19/20 21:01 Pulse Ox 97 11/20/20 00:24 Body Mass Index 16.4 <PRAMOD Abraham - Last Filed: 11/19/20 17:54> Vital Signs: Last Vital Signs Temp 98.7 F 11/19/20 21:01 Pulse 74 11/20/20 00:24 Resp 11/20/20 00:24 BP 120/73 11/19/20 21:01 Pulse Ox 97 11/20/20 00:24 Body Mass Index 16.4 <AUBREY Godoy - Last Filed: 11/20/20 03:51> Const: General: no acute distress, alert and awake <PRAMOD Abraham - Last Filed: 11/19/20 17:54> Nutritional Appearance: thin and underweight <PRAMOD Abraham - Last Filed: 11/19/20 17:54> Orientation/consciousness: patient oriented x3 <PRAMOD Abraham - Last Filed: 11/19/20 17:54> Limitations: no limitations <PRAMOD Abraham - Last Filed: 11/19/20 17:54> HENMT: Head: Yes normal to inspection, Yes No palpable skull fracture present, Yes normocephalic and Yes atraumatic <PRAMOD Abraham - Last Filed: 11/19/20 17:54> Ears: hearing grossly normal bilaterally and external ears normal <PRAMOD Abraham Last Filed: 11/19/20 17:54> General nose exam: Normal external nose present and Normal nares present <PRAMOD Abraham Last Filed: 11/19/20 17:54> Face and sinus: Yes normal facial exam and Yes face symmetric <PRAMOD Abraham Last Filed: 11/19/20 17:54> Mouth: Normal oral and palatal mucosa present, lip normal, tongue normal, oropharynx normal and moist mucous membranes <PRAMOD Abraham Last Filed: 11/19/20 17:54> Teeth and gingiva: dentition normal and gingiva normal <PRAMOD Abraham Last Filed: 11/19/20 17:54> Throat: Yes posterior oropharynx normal <PRAMOD Abraham Last Filed: 11/19/20 17:54> Eyes: General: appearance normal, both eyes and all related structures <PRAMOD Abraham Last Filed: 11/19/20 17:54> Pupils: Equal, round and reactive pupils present <PRAMOD Abraham Last Filed: 11/19/20 17:54> EOM: EOMs intact bilaterally <PRAMOD Abraham Last Filed: 11/19/20 17:54> Neck: Neck: Yes normal visual inspection, Yes full ROM, Yes no lymphadenopathy and No tender <PRAMOD Abraham Last Filed: 11/19/20 17:54> Chest: Chest palpation & inspection: normal inspection of the chest and normal palpation of entire chest wall <PRAMOD Abraham Last Filed: 11/19/20 17:54> Resp: Effort & Inspection: normal respiratory effort and able to speak in complete sentences <PRAMOD Abraham Last Filed: 11/19/20 17:54> Auscultation: clear to auscultation bilaterally <PRAMOD Abraham Last Filed: 11/19/20 17:54> Cardio: Rate: regular rate <PRAMOD Abraham Last Filed: 11/19/20 17:54> Rhythm: regular rhythm <PRAMOD Abraham Last Filed: 11/19/20 17:54> Heart sounds: S1 normal heart sound present and S2 normal heart sound present <PRAMOD Abraham Last Filed: 11/19/20 17:54> GI: Inspection: Yes normal to inspection <PRAMOD Abraham Last Filed: 11/19/20 17:54> Palpation (GI): Soft to palpation, not firm and nontender <PRAMOD Abraham Last Filed: 11/19/20 17:54> Auscultation: normal bowel sounds <PRAMOD Abraham Last Filed: 11/19/20 17:54> Back/Spine/Pelvis: Cervical Spine: normal cervical lordosis, cervical ROM normal, No Cervical spine tenderness and No step off deformity <PRAMOD Abraham Last Filed: 11/19/20 17:54> Pelvis: no pain with lateral compression <PRAMOD Abraham Last Filed: 11/19/20 17:54> Sacroiliac joints: bilaterally nontender <PRAMOD Abraham Last Filed: 11/19/20 17:54> Skin: Lesions: lesion noted papule left cheek <PRAMOD Abraham Last Filed: 11/19/20 17:54> Neuro: General: patient oriented x3 and Unable to assess gait <PRAMOD Abraham Last Filed: 11/19/20 17:54> Cranial nerves: Yes Equal, round and reactive pupils present and Yes Normal hearing present <PRAMOD Abraham Last Filed: 11/19/20 17:54> Cognition (Neuro): normal cognition <PRAMOD Abraham Last Filed: 11/19/20 17:54> Gait exam (Neuro): Unable to assess gait <PRAMOD Abraham Last Filed: 11/19/20 17:54> Extrem: Right upper extremity: normal to inspection and full ROM <PRAMOD Abraham Last Filed: 11/19/20 17:54> Left upper extremity: shoulder/upper arm Details: inspection abnormal, tenderness Location: of the clavicle Laterality: laterally, swelling Location: of the clavicle Location: laterally and of the A-C joint (mild) and abnormal ROM Details: held in an abnormal fashion Details: in ADduction and pain with passive ROM Details: in ABduction and in extension <PRAMOD Abraham - Last Filed: 11/19/20 17:54> Right lower extremity: normal to inspection <PRAMOD Abraham - Last Filed: 11/19/20 17:54> Left lower extremity: normal to inspection <PRAMOD Abraham - Last Filed: 11/19/20 17:54> Psych: Appearance: grossly normal and well kempt <PRAMOD Abraham - Last Filed: 11/19/20 17:54> Mental Status: mental status grossly normal <PRAMOD Abraham - Last Filed: 11/19/20 17:54> Speech and movement: Normal speech and movement present <PRAMOD Abraham Last Filed: 11/19/20 17:54> Affect: normal affect <PRAMOD Abraham - Last Filed: 11/19/20 17:54> Attitude: cooperative <PRAMOD Abraham - Last Filed: 11/19/20 17:54> Course Course Course Narrative: 85 y/o female presenting with left shoulder pain after she slid off of the couch onto the ground, falling onto her left shoulder. She denies hearing any pops or snaps. She is unable to move her left arm, and is holding it in adduction. She will flex and extend elbow only. Bilateral manufacturing plant controller strength is equal and symmetrical. Did not sound like there was any concern for seizures. She has been compliant with her Dilantin. Concern for clavicular fracture, possible proximal humerus. Will get XR for further evaluation. Will get basic lab workup and given details surrounding the fall are unclear at this time. <PRAMOD Abraham Last Filed: 11/19/20 17:54> Reevaluation(s) Reevaluation #1: XR showing lateral end of the clavicle is fractured. Placed in sling for comfort. PO tylenol and low dose oxycodone ordered for reports of 9/10 pain. Will get PT evaluation and CM consult for placement as she requires a walker for ambulation and will no longer be able to use it while her clavicle is healing. She was recently at [facility] for rehab after falls. <PRAMOD Abraham - Last Filed: 11/19/20 17:54> Reevaluation #2: Lab workup is unremarkable. Pain improved after medications, patient sleeping comfortably. Med rec pending. UA pending. Physician observation started at 5:30pm. Patient placed in physician observation because patient is awaiting PT evaluation for the possible need of short term rehab placement. At the time observation was started patient's vital signs were stable. Patient is alert and oriented. Neuro exam is non-focal. CV: RRR and lungs are clear. Will continue to monitor. <PRAMOD Abraham - Last Filed: 11/19/20 17:54> Reevaluation #3: Patient is resting, she will be seen by physical therapy tomorrow morning. Patient denies any discomfort at this time. Vital signs normal. Patient denies any CP, syncope. Patient is alert and oriented, ate dinner, new neuro exam nonfocal, RRR and lungs sounds are clear <SEKOU Godoy - Last Filed: 11/20/20 03:51> MDM - Fall Lab Data Result diagrams: : 11/19/20 16:39 11/19/20 16:39 <PRAMOD Abraham - Last Filed: 11/19/20 17:54> Labs: Lab Results 11/19/20 11/19/20 11/19/20 Range/Units 16:39 16:39 16:39 WBC 9.9 (4.8-10.8) X10*3/uL RBC 3.43 L (4.20-5.50) X10*6/uL Hgb 10.9 L (12.0-16.0) g/dl Hct 33.9 L (37-47) % MCV 98.8 H (80-98) fL MCH 31.8 (27.0-33.0) pg MCHC 32.2 (31.0-35.0) g/dl RDW 13.6 (11.0-16.0) % Plt Count 248 (160-400) X10*3/uL MPV 8.8 L (9.4-12.3) fL Immature Gran % (Auto) 0.5 H (0.0-0.4) % Neut % (Auto) 83.9 H (45-73) % Lymph % (Auto) 10.2 L (20-40) % [place] % (Auto) 4.7 (2-11) % Eos % (Auto) 0.4 (0-4) % Baso % (Auto) 0.3 (0-2) % Lymph # (Auto) 1.0 L (1.2-4.9) X10*3/uL [place] # (Auto) 0.5 (0.1-1.2) X10*3/uL Eos # (Auto) 0.0 (0.0-0.4) X10*3/uL Baso # (Auto) 0.0 (0.0-0.2) X10*3/uL Abs Immat Gran (auto) 0.05 H (0.00-0.03) X10*3/uL Absolute Neuts (auto) 8.3 (2.0-8.3) X10*3/uL Absolute Nucleated RBC 0.000 (0.0-0.012) X10*3/uL Nucleated RBC % (auto) 0.0 (0.0-0.2) /100WBC Sodium 137 (135-145) mmol/L Potassium 4.1 (3.3-5.1) mmol/L Chloride 103 (96-108) mmol/L Carbon Dioxide 26 (22-29) mmol/L Anion Gap 12 (12-20) BUN 22 H (9-16) mg/dL Creatinine 0.65 (0.5-1.4) mg/dL Estim Creat Clear Calc 39.4 Estimated GFR > 60 Random Glucose 152 H (60-115) mg/dL Calcium 8.4 (8.4-10.2) mg/dL Magnesium (1.6-2.6) mg/dL Total Creatine Kinase (26-140) U/L Urine Color Urine Appearance Urine pH (5.0-8.0) Ur Specific [place] (1.005-1.025) Urine Protein (NEG-TRACE) MG/DL Urine Glucose (UA) (NEG) MG/DL Urine Ketones (NEG) MG/DL Urine Blood (NEG) Urine Nitrite (NEG) Ur Leukocyte Esterase (NEG) Urine RBC (0) /HPF Urine WBC (0-4) /HPF Ur Squamous Epith Cells /LPF Urine Bacteria /LPF Urine Mucus /LPF COVID-19 ([facility]) Negative (Negative) COVID-19 Clin Com See Note 11/19/20 11/19/20 Range/Units 16:39 21:26 WBC (4.8-10.8) X10*3/uL RBC (4.20-5.50) X10*6/uL Hgb (12.0-16.0) g/dl Hct (37-47) % MCV (80-98) fL MCH (27.0-33.0) pg MCHC (31.0-35.0) g/dl RDW (11.0-16.0) % Plt Count (160-400) X10*3/uL MPV (9.4-12.3) fL Immature Gran % (Auto) (0.0-0.4) % Neut % (Auto) (45-73) % Lymph % (Auto) (20-40) % [place] % (Auto) (2-11) % Eos % (Auto) (0-4) % Baso % (Auto) (0-2) % Lymph # (Auto) (1.2-4.9) X10*3/uL [place] # (Auto) (0.1-1.2) X10*3/uL Eos # (Auto) (0.0-0.4) X10*3/uL Baso # (Auto) (0.0-0.2) X10*3/uL Abs Immat Gran (auto) (0.00-0.03) X10*3/uL Absolute Neuts (auto) (2.0-8.3) X10*3/uL Absolute Nucleated RBC (0.0-0.012) X10*3/uL Nucleated RBC % (auto) (0.0-0.2) /100WBC Sodium (135-145) mmol/L Potassium (3.3-5.1) mmol/L Chloride (96-108) mmol/L Carbon Dioxide (22-29) mmol/L Anion Gap (12-20) BUN (9-16) mg/dL Creatinine (0.5-1.4) mg/dL Estim Creat Clear Calc Estimated GFR Random Glucose (60-115) mg/dL Calcium (8.4-10.2) mg/dL Magnesium 1.7 (1.6-2.6) mg/dL Total Creatine Kinase 17 L (26-140) U/L Urine Color DK YELLOW Urine Appearance CLEAR Urine pH 6.0 (5.0-8.0) Ur Specific [place] 1.020 (1.005-1.025) Urine Protein TRACE (NEG-TRACE) MG/DL Urine Glucose (UA) NEG (NEG) MG/DL Urine Ketones NEG (NEG) MG/DL Urine Blood 2+ H (NEG) Urine Nitrite NEG (NEG) Ur Leukocyte Esterase TRACE H (NEG) Urine RBC 15-29 H (0) /HPF Urine WBC 5-9 H (0-4) /HPF Ur Squamous Epith Cells 3+ /LPF Urine Bacteria 2+ /LPF Urine Mucus 1+ /LPF COVID-19 ([facility]) (Negative) COVID-19 Clin Com <PRAMOD Abraham - Last Filed: 11/19/20 17:54> Lab Results 11/19/20 11/19/20 11/19/20 Range/Units 16:39 16:39 16:39 WBC 9.9 (4.8-10.8) X10*3/uL RBC 3.43 L (4.20-5.50) X10*6/uL Hgb 10.9 L (12.0-16.0) g/dl Hct 33.9 L (37-47) % MCV 98.8 H (80-98) fL MCH 31.8 (27.0-33.0) pg MCHC 32.2 (31.0-35.0) g/dl RDW 13.6 (11.0-16.0) % Plt Count 248 (160-400) X10*3/uL MPV 8.8 L (9.4-12.3) fL Immature Gran % (Auto) 0.5 H (0.0-0.4) % Neut % (Auto) 83.9 H (45-73) % Lymph % (Auto) 10.2 L (20-40) % [place] % (Auto) 4.7 (2-11) % Eos % (Auto) 0.4 (0-4) % Baso % (Auto) 0.3 (0-2) % Lymph # (Auto) 1.0 L (1.2-4.9) X10*3/uL [place] # (Auto) 0.5 (0.1-1.2) X10*3/uL Eos # (Auto) 0.0 (0.0-0.4) X10*3/uL Baso # (Auto) 0.0 (0.0-0.2) X10*3/uL Abs Immat Gran (auto) 0.05 H (0.00-0.03) X10*3/uL Absolute Neuts (auto) 8.3 (2.0-8.3) X10*3/uL Absolute Nucleated RBC 0.000 (0.0-0.012) X10*3/uL Nucleated RBC % (auto) 0.0 (0.0-0.2) /100WBC Sodium 137 (135-145) mmol/L Potassium 4.1 (3.3-5.1) mmol/L Chloride 103 (96-108) mmol/L Carbon Dioxide 26 (22-29) mmol/L Anion Gap 12 (12-20) BUN 22 H (9-16) mg/dL Creatinine 0.65 (0.5-1.4) mg/dL Estim Creat Clear Calc 39.4 Estimated GFR > 60 Random Glucose 152 H (60-115) mg/dL Calcium 8.4 (8.4-10.2) mg/dL Magnesium (1.6-2.6) mg/dL Total Creatine Kinase (26-140) U/L Urine Color Urine Appearance Urine pH (5.0-8.0) Ur Specific [place] (1.005-1.025) Urine Protein (NEG-TRACE) MG/DL Urine Glucose (UA) (NEG) MG/DL Urine Ketones (NEG) MG/DL Urine Blood (NEG) Urine Nitrite (NEG) Ur Leukocyte Esterase (NEG) Urine RBC (0) /HPF Urine WBC (0-4) /HPF Ur Squamous Epith Cells /LPF Urine Bacteria /LPF Urine Mucus /LPF COVID-19 ([facility]) Negative (Negative) COVID-19 Clin Com See Note 11/19/20 11/19/20 Range/Units 16:39 21:26 WBC (4.8-10.8) X10*3/uL RBC (4.20-5.50) X10*6/uL Hgb (12.0-16.0) g/dl Hct (37-47) % MCV (80-98) fL MCH (27.0-33.0) pg MCHC (31.0-35.0) g/dl RDW (11.0-16.0) % Plt Count (160-400) X10*3/uL MPV (9.4-12.3) fL Immature Gran % (Auto) (0.0-0.4) % Neut % (Auto) (45-73) % Lymph % (Auto) (20-40) % [place] % (Auto) (2-11) % Eos % (Auto) (0-4) % Baso % (Auto) (0-2) % Lymph # (Auto) (1.2-4.9) X10*3/uL [place] # (Auto) (0.1-1.2) X10*3/uL Eos # (Auto) (0.0-0.4) X10*3/uL Baso # (Auto) (0.0-0.2) X10*3/uL Abs Immat Gran (auto) (0.00-0.03) X10*3/uL Absolute Neuts (auto) (2.0-8.3) X10*3/uL Absolute Nucleated RBC (0.0-0.012) X10*3/uL Nucleated RBC % (auto) (0.0-0.2) /100WBC Sodium (135-145) mmol/L Potassium (3.3-5.1) mmol/L Chloride (96-108) mmol/L Carbon Dioxide (22-29) mmol/L Anion Gap (12-20) BUN (9-16) mg/dL Creatinine (0.5-1.4) mg/dL Estim Creat Clear Calc Estimated GFR Random Glucose (60-115) mg/dL Calcium (8.4-10.2) mg/dL Magnesium 1.7 (1.6-2.6) mg/dL Total Creatine Kinase 17 L (26-140) U/L Urine Color DK YELLOW Urine Appearance CLEAR Urine pH 6.0 (5.0-8.0) Ur Specific [place] 1.020 (1.005-1.025) Urine Protein TRACE (NEG-TRACE) MG/DL Urine Glucose (UA) NEG (NEG) MG/DL Urine Ketones NEG (NEG) MG/DL Urine Blood 2+ H (NEG) Urine Nitrite NEG (NEG) Ur Leukocyte Esterase TRACE H (NEG) Urine RBC 15-29 H (0) /HPF Urine WBC 5-9 H (0-4) /HPF Ur Squamous Epith Cells 3+ /LPF Urine Bacteria 2+ /LPF Urine Mucus 1+ /LPF COVID-19 ([facility]) (Negative) COVID-19 Clin Com <RACHELLE Godoy-LOURDES - Last Filed: 11/20/20 03:51> Critical Care Time Critical Care Time Critical Care Time: No <PRAMOD Abraham - Last Filed: 11/19/20 17:54> Discharge Plan Discharge Clinical Impression: Closed left clavicular fracture Qualifiers: Encounter type: initial encounter Clavicle location: lateral end Fracture alignment: nondisplaced Qualified Code(s): S42.035A - Nondisplaced fracture of lateral end of left clavicle, initial encounter for closed fracture <PRAMOD Abraham - Last Filed: 11/19/20 17:54> Instructions: Clavicle Fracture (ED) <PRAMOD Abraham - Last Filed: 11/19/20 17:54> Prescriptions: No Action phenytoin sodium extended 300 mg Capsule 300 mg PO DAILY RF: 0 prednisone 5 mg Tablet 5 mg PO DAILY RF: 0 <PRAMOD Abraham - Last Filed: 11/19/20 17:54>
[2020-11-19 15:24] VITALS: BP 127/76; BP 130/70; PULSE 91; PULSE 92; RESP 14; TEMP 36.5; O2SAT 95; BMI 16.4
[2020-11-19] MEDS: oxyCODONE HCl Immed Release 5 MG TABLET 2.5 MG PO (16:17)
[2020-11-19] MEDS: Acetaminophen 325 MG TABLET 975 MG PO (16:17)
[2020-11-19 16:48] LABS: MANUAL DIFF FLAG NO
[2020-11-19 16:49] LABS: Basophils Percent Auto 0.3 % (0-2); Eosinophils Percent Auto 0.4 % (0-4); Hematocrit 33.9 % (37-47); Hemoglobin 10.9 g/dl (12.0-16.0); Imm Gran Abs Auto 0.05 X10*3/uL (0.00-0.03); Imm Gran Pct Auto 0.5 % (0.0-0.4); Lymphocytes Percent Auto 10.2 % (20-40); Mean Corpuscular HGB Conc 32.2 g/dl (31.0-35.0); Mean Corpuscular Hemoglobin 31.8 pg (27.0-33.0); Mean Corpuscular Volume 98.8 fL (80-98); Mean Platelet Volume 8.8 fL (9.4-12.3); Monocytes Absolute Auto 0.5 X10*3/uL (0.1-1.2); Monocytes Percent Auto 4.7 % (2-11); Neutrophils Absolute Auto 8.3 X10*3/uL (2.0-8.3); Neutrophils Percent Auto 83.9 % (45-73); Platelet Count 248 X10*3/uL (160-400); Red Blood Count 3.43 X10*6/uL (4.20-5.50); Red Cell Distribution Width 13.6 % (11.0-16.0); White Blood Count 9.9 X10*3/uL (4.8-10.8)
[2020-11-19 17:04] LABS: COVID-19 Test Negative (Negative); IDNOW Serial# 9DD0AD1C
[2020-11-19 17:06] LABS: Anion Gap 12 (12-20); Blood Urea Nitrogen 22 mg/dL (9-16); Calcium 8.4 mg/dL (8.4-10.2); Carbon Dioxide 26 mmol/L (22-29); Chloride 103 mmol/L (96-108); Creatinine Clr Calc Pharmacy 39.4; Estimated Glomerular Filt Rate > 60; Glucose Random 152 mg/dL (60-115); Potassium 4.1 mmol/L (3.3-5.1); Sodium 137 mmol/L (135-145)
[2020-11-19 17:07] LABS: Magnesium 1.7 mg/dL (1.6-2.6)
--- NOTE | 2020-11-19 19:25 | PC.NURSE ---
SPOKE WITH PT GEOFFREY AND SHE AWARE SHE WILL BE STAYING IN THE HOSPITAL FOR PT/OT EVAL AND CASE MANAGEMENT.
[2020-11-19 19:52] VITALS: BP 108/60; PULSE 89; RESP 18; TEMP 37; O2SAT 94
--- NOTE | 2020-11-19 19:57 | PC.NURSE ---
Per Tayler Mishra RN who performed Med Rec by talking with pt's niece, pt is on only two medications phenytoin and prednisone daily. This RN to enter into computer. Additionally, pt's sister and niece can be reached at [phone]
[2020-11-19 21:01] VITALS: BP 120/73; PULSE 86; RESP 17; TEMP 37.1; O2SAT 95
[2020-11-19 21:35] LABS: Appearance Urine CLEAR; Color Urine DK YELLOW; Glucose Urine UA NEG (NEG); Leukocyte Esterase Urine TRACE (NEG); Nitrite Urine NEG (NEG); UACC Culture Trigger YES; Urine Blood 2+ (NEG); Urine Ketones NEG (NEG); Urine Protein TRACE MG/DL (NEG-TRACE)
--- NOTE | 2020-11-19 21:52 | PC.NURSE ---
This RN moved pt into room 18 for temporary privacy. Pt aaox4, resting on stretcher in NAD, breathing with ease on RA, speaking in complete clear sentences, skin warm dry and normal in appearance for age and race. Pt denies pain at rest, reports L shoulder pain with movement. Pt changed out of home clothing and placed on bedpan to provide urine sample per orders. Pt tolerates this without complaint. Pt urine sample sent to lab for processing. Pt reports I have surgical wounds on my ass with a bandage on them. This rn appreciates pressure ulcers stage 3 on bilateral buttocks. Kathryn care provided. Wounds with scant serosanguinous drainage. Wounds measured, photographed with verbal consent, and pt signed photographic impaired skin documentation form. Wounds cleaned with wound spray and padded dressing applied. Pt positioned onto R side to offload from buttocks. Pt provided PO per request. This RN made Dr Pool aware of need for order for wound consult. Pt with red fall prevention socks on, red fall alert wrist band on. EVS contacted for hospital bed to further assist in pt comfort and skin precautions. Stretcher in low locked position, rails raised.
[2020-11-19 22:22] LABS: Bacteria Urine 2+ /LPF; Mucus Urine 1+ /LPF; Squamous Epithelial Cell Urine 3+ /LPF
[2020-11-20 00:24] VITALS: PULSE 74; RESP 15; O2SAT 97
--- NOTE | 2020-11-20 00:24 | PC.NURSE ---
Pt transferred to via sheet draw method without incidence. Pt repositioned onto back with pillows padding under both sides to promote comfort and skin integrity. Pt reports she is in a position of comfort at this time. Pt continues to deny pain at rest, reports discomfort with movement. Pt denies need for food/drink at this time. Pt HB in low locked position, rails raised, call khan within reach. Bed alarm active and audible.
--- NOTE | 2020-11-20 00:29 | PC.NURSE ---
This RN notes order for urine culture in computer despite knowing that culture had been sent to lab previously. This RN calls lab to verify receipt of urine culture. Lab confirms that they have the culture in lab but they don't scan it into the computer after 11pm. In the AM, day shift will scan it into the computer.
--- NOTE | 2020-11-20 03:47 | PC.NURSE ---
Pt repositioned onto L side, assessed for incontinence needs. Pt not soiled at this time. Pt remains asleep without nonverbal indicators of pain at this time.
[2020-11-20 06:12] VITALS: BP 116/66; PULSE 95; RESP 16; TEMP 36.7; O2SAT 97
--- NOTE | 2020-11-20 06:59 | PC.NURSE ---
When this RN in room ~45 minutes ago, pt found to be incontinent. Inc care provided. Pt then repositioned into position of comfort onto R side for skin precautions and pt comfort. Bed in low locked position, rails raised, call khan within reach
--- NOTE | 2020-11-20 07:35 | PC.NURSE ---
Pt sleeping. Will let pt sleep. This clinical writer will continue to monitor.
[2020-11-20 09:41] VITALS: BP 125/70; PULSE 87; RESP 18; TEMP 36.8; O2SAT 95
[2020-11-20] MEDS: predniSONE 5 MG TABLET PO (09:41)
[2020-11-20] MEDS: Phenytoin Sodium Extended 100 MG CAPSULE 300 MG PO (09:41)
--- NOTE | 2020-11-20 09:49 | PC.NURSE ---
Pt awake, alert and oriented,vss, denies pain/discomfort. No sob/dizziness. Meds given with applesauce per pt's request. Pt dry, repositioned for comfort. Will continue to monitor
[2020-11-20 18:27] VITALS: BP 132/83; PULSE 91; RESP 16; O2SAT 95
--- NOTE | 2020-11-20 22:36 | PC.NURSE ---
PT was found to be incontinent in bed. PT was cleaned up and repositioned in bed. Linen and johnnies changed. PT asked for some water. Respirations even and unlabored, PT in NAD.
[2020-11-21 06:33] VITALS: BP 118/74; PULSE 86; RESP 16; TEMP 36.9; O2SAT 96
--- NOTE | 2020-11-21 06:35 | PC.NURSE ---
PT was found to be incontinent in bed. PT cleaned, linens and johnnies changed, and then repositioned in bed. Dressing on the pressure sore was changed. PT complains of 5/10 shoulder pain. Respirations even and unlabored, PT in NAD.
--- NOTE | 2020-11-21 06:49 | PC.NURSE ---
pt reports tht she is from [facility], and norally ambulatory with assist of walker.
[2020-11-21] MEDS: Acetaminophen 325 MG TABLET 650 MG PO ×2 (06:50→22:28)
[2020-11-21 07:42] VITALS: BP 118/74; PULSE 86; O2SAT 96
--- NOTE | 2020-11-21 10:03 | PC.NURSE ---
Skin/Wound assessment completed today. On admission patient has 2 Stage 3 pressure ulcers on bilateral buttocks. Wounds cleans with soap and water, Triad applied, cover with gauze and foam dressing. Scattered bruising on arms and legs. No other skin issues noted at this time.
--- NOTE | 2020-11-21 11:31 | MHC.CM.ED ---
Received case management consult. Patient came to the ER after a fall. Work up essentially negative. Physical therapy eval completed. Short term rehab is recommended Attempted to meet with patient in regards to discharge planning. Patient currently eating. Spoke with patient's niece, Cheryl via telephone at [phone]. Patient was at [facility] from 09/11-11/18. She was able to stand/pivot at the time of discharge. Family has hired some private pay help. Patient slipped off the couch onto the floor on Saturday and came to ER for eval. Per Cheryl, she does not want patient to return to [facility]. Referrals made to [facility] [address] and [facility] at Cheryl's request. Patient received [employer] Covid vaccine on 09/09. PCp verified. Copy of HCP verified to be on file. Continue to monitor for d/c needs.
[2020-11-21 14:25] VITALS: BP 111/65; PULSE 85; RESP 14; TEMP 36.9; O2SAT 95
--- NOTE | 2020-11-21 17:13 | MHC.CM.ED ---
[facility] does not have a bed. [facility] reviewing. CM will f/u in the am. CM to follow for d/c needs.
--- NOTE | 2020-11-21 17:17 | MHC.CM.ED ---
Cm met with patient. Pt is agreeable to [facility], but aggress with her niece Cheryl, that she does not want to return to [facility]. Pt aware that [facility] does not have any beds. Pt aware that [facility] is reviewing and that she will not have placement tonight. Pt aware that she will stay in the ED tonight. Pt offers no complaints. Requesting karin guaman. Given. CM to follow for d/c needs.
[2020-11-21 18:34] VITALS: BP 113/70; PULSE 86; RESP 17; TEMP 36.6; O2SAT 98
[2020-11-21 22:00] VITALS: BP 112/70; PULSE 82; RESP 18
[2020-11-22] VITALS: BP 113/74; PULSE 82; RESP 16; TEMP 36.3; O2SAT 98
--- NOTE | 2020-11-22 00:17 | PC.NURSE ---
PATIENT REQUESTED TO HAVE PER WICK REMOVE ,PATIENT WAS INC OF LARGE AMOUNT OF URINE ,BED BATH WAS GIVEN BY THIS PCT .
[2020-11-22 03:25] VITALS: RESP 16
[2020-11-22 05:37] VITALS: BP 120/66; PULSE 79; RESP 16; TEMP 36.4; O2SAT 97
[2020-11-22 08:30] VITALS: BP 108/62; PULSE 80; RESP 14; O2SAT 95
--- NOTE | 2020-11-22 10:29 | MHC.CM.ED ---
[facility] is able to offer a bed today. Patient can leave at 2pm. [facility] booked. [facility] with chart. Patient, Shira Hernandez RN and Dr Davis aware. Continue to monitor for d/c needs.
[2020-11-22 10:49] VITALS: BP 108/65; PULSE 83; RESP 16; O2SAT 95
[2020-11-22] MEDS: predniSONE 5 MG TABLET PO (10:52)
[2020-11-22] MEDS: Phenytoin Sodium Extended 100 MG CAPSULE 300 MG PO (10:52)
[2020-11-22] MEDS: Acetaminophen 325 MG TABLET 650 MG PO (10:52)
[2020-11-22 13:43] VITALS: BP 115/62; PULSE 72; RESP 17; O2SAT 95
--- NOTE | 2020-11-22 13:51 | PC.NURSE ---
nurse to nurse given to tee (rn). pt aware of plan of care for transfer to facility.
== END 2020-11-22 13:53 | disposition skilled nursing facility (03) ==
PROVIDERS: Physician Assistant; Emergency Provider Emergency Medicine; PCP Physician Assistant
DX: S42.035A Nondisplaced fracture of lateral end of left clavicle, initial encounter for closed fracture (principal); M25.512 Pain in left shoulder; J44.9 Chronic obstructive pulmonary disease, unspecified; W08.XXXA Fall from other furniture, initial encounter; Y93.9 Activity, unspecified; Y92.009 Unspecified place in unspecified non-institutional (private) residence as the place of occurrence of the external cause; Y99.9 Unspecified external cause status; Z91.81 History of falling; Z20.822 Contact with and (suspected) exposure to COVID-19; Z79.899 Other long term (current) drug therapy; F17.210 Nicotine dependence, cigarettes, uncomplicated; Z71.6 Tobacco abuse counseling
CPT/HCPCS: 36415; 73030; 80048; 81001; 82550; 83735; 85025; 87086; 87635; 97162; 99285

== ENCOUNTER 2020-12-08 08:25 | Outpatient (REF) | payer MEDICARE, SELFPAY ==
--- NOTE | ~2020-12-08 | XR_ITS ---
EXAMINATION: XR CLAVICLE, LEFT CLINICAL INFORMATION: Fracture. COMPARISON: Left shoulder 11/19/2020 TECHNIQUE: Two views of the left clavicle. FINDINGS: Again visualized is a nondisplaced fracture left lateral clavicle with minimal callus formation. The AC joint is intact. The soft tissues are normal. XR/XR clavicle LT IMPRESSION: Slowly healing lateral clavicular fracture. AC joint is intact.
== END 2020-12-08 08:26 | disposition home or self-care (01) ==
LOC: HO.HOSX 08:25
PROVIDERS: Visit Provider Physician Assistant
DX: S42.034D Nondisplaced fracture of lateral end of right clavicle, subsequent encounter for fracture with routine healing (principal)
CPT/HCPCS: 73000; 99202